=== PATIENT | female | born 1955 | race Caucasian/White ===

== ENCOUNTER → 2019-02-13 | Emergency (ER) | payer MEDICARE, MEDICAID, SELFPAY | PROVIDERS: Emergency Provider Emergency Medicine; Family Provider Family Medicine; Visit Provider Emergency Medicine | DX: I10 Essential (primary) hypertension (principal) | CPT/HCPCS: 71045; 80053; 84484; 85025; 85378; 99283 ==

== ENCOUNTER 2019-05-30 15:41 | Emergency (ER) | payer MEDICARE, MEDICAID, SELFPAY ==
[2019-05-30 15:51] VITALS: BP 194/114; PULSE 77; RESP 14; TEMP 36.4; O2SAT 98; BMI 38.9
[2019-05-30 16:11] VITALS: BP 178/92; PULSE 72; RESP 16; O2SAT 99
--- NOTE | 2019-05-30 16:20 | XR_ITS ---
WS: [id number] PORTABLE CHEST HISTORY: dyspnea COMPARISON: 02/13/2019 Lungs are clear and well expanded. No pleural effusion or pneumothorax. Cardiac size: Normal. Mediastinum/Aorta: Mild atherosclerosis aorta. Prior rotator cuff repair RIGHT shoulder. XR/XR chest 1V portable [id number] IMPRESSION: Mild atherosclerosis aorta. No acute findings.
--- NOTE | 2019-05-30 16:21 | ECG_ITS ---
Measurements Intervals [place] Rate: 72 P: 7 MD: 177 QRS: -8 QRSD: 89 T: -18 QT: 393 QTc: 432 SINUS RHYTHM Compared to ECG 02/14/2019 00:14:57 No significant changes Electronically Signed On 05-30-2019 19:15:59 CDT by Yolanda Mejia M.D. [id number] f
--- NOTE | 2019-05-30 16:24 | ED_ITS ---
Documented by User: Levon Paige DO 05/30/19 16:27 HPI - SOB/Dyspnea General: Chief Complaint: Shortness of Breath/Dyspnea Stated Complaint: sent by doctor mirian/ high blood pressure Time Seen by Provider: 05/30/19 16:13 History of Present Illness: HPI Narrative: Patient states that while she was reading very early this morning her blood pressure began to become elevated and also she had some chest heaviness with shortness of breath. The chest heaviness and shortness of breath have resolved her the patient's blood pressure remains elevated MD elicited complaint: shortness of breath Onset (ago): hour(s) Timing: improved and now resolved Severity: moderate Exacerbating factors: exertion Relieving factors: nothing Associated symptoms: Reports chest pain Treatment prior to arrival: none Review of Systems General: Reports: 10 or more systems reviewed and unremarkable except in HPI and below Const: Reports: fatigue Card: Reports: chest pain Resp: Reports: shortness of breath PFSH ED PFSH: Social History Smoking and tobacco status: never smoked Physical Exam Const: COMMON NORMALS: oriented x3 and alert HENMT: COMMON NORMALS: normocephalic and head/scalp atraumatic HEAD & SCALP: normocephalic and atraumatic Neck/C-Spine: COMMON NORMALS: full ROM, no lymphadenopathy, supple, no meningeal signs and no JVD Resp: COMMON NORMALS: normal respiratory effort, no retractions, no use of accessory muscles and clear to auscultation bilaterally AUSCULTATION: clear to auscultation bilaterally Cardio: COMMON NORMALS: no JVD, regular rate and regular rhythm JUGULAR VENOUS DISTENTION: no JVD RATE: regular rate RHYTHM: regular rhythm GI: COMMON NORMALS: normal to inspection, nondistended, normoactive bowel sounds Extremity: COMMON NORMALS: normal to inspection and no pedal edema Neuro: COMMON NORMALS: oriented x3, CN's II-XII intact bilaterally and moves all extremities SENSORIUM/ORIENTATION: Yes alert MENINGEAL SIGNS: Yes no meningeal signs Skin: COMMON NORMALS: no rashes or lesions noted, no wounds, skin turgor normal, no jaundice, no petechiae and no mottling GENERAL SKIN EXAM: no rashes or lesions noted and turgor normal Course Vital Signs: Vital signs: Vital Signs Temperature 97.6 F 05/30/19 15:51 Pulse Rate 72 05/30/19 16:11 Respiratory Rate 16 05/30/19 16:11 Blood Pressure 178/92 05/30/19 16:11 Pulse Oximetry 99 05/30/19 16:11 MDM - SOB/Dyspnea Lab Data: Labs: Lab Results 05/30/19 05/30/19 05/30/19 Range/Units 16:30 16:30 16:30 WBC 4.4 (4.0-10.0) 10^3/ uL RBC 4.63 (4.1-5.3) 10^6/u L Hgb 13.7 (11.5-15.3) g/dL Hct 43.0 (37.0-47.0) % MCV 92.9 (81-99) fL MCH 29.6 (28.0-34.0) pg MCHC 31.9 (30.0-36.0) g/dL RDW 13.1 (12.1-15.1) % Plt Count 172 (130-400) 10^3/c mm MPV 9.6 (7.4-10.4) fL Neut % (Auto) 59.9 % Lymph % (Auto) 31.0 % [place] % (Auto) 6.2 % Eos % (Auto) 1.8 % Baso % (Auto) 0.9 % Neut # (Auto) 2.6 (1.8-7.7) 10^3/u L Lymph # (Auto) 1.4 (0.8-4.8) 10^3/u L [place] # (Auto) 0.3 (0.2-0.9) 10^3/u L Eos # (Auto) 0.1 (0.0-0.8) 10^3/u L Baso # (Auto) 0.0 (0.0-0.1) 10^3/u L Nucleated RBC % (a uto) 0 % Nucleated RBCs # 0.0 /100WBC Sodium 140 (136-145) mmol/L Potassium 3.8 (3.5-5.1) mmol/L Chloride 103 (98-107) mmol/L Carbon Dioxide 22 (22-29) mmol/L Anion Gap 18.8 (5-19) BUN 12 (8-23) mg/dL Creatinine 0.8 (0.5-0.9) mg/dL GFR Calculation 72.7 L (90-130) mL/min Glucose 98 (65-115) mg/dL Calculated Osmolal ity 286 (285-295) mOsm/k g Calcium 10.1 (8.5-10.5) mg/dL Total Bilirubin 0.8 (0.15-1.2) mg/dL AST 16 (0-32) U/L ALT 12 (0-33) U/L Alkaline Phosphata se 65 (35-105) IU/L Troponin T Baselin e 8 (0-10) ng/mL Troponin T 120 Min [place] (0-10) ng/mL NT-Pro-B Natriuret Pep 639 H (0-125) pg/mL Total Protein 7.4 (6.6-8.7) g/dL Albumin 4.4 (3.5-5.2) g/dL Globulin 3.0 (1.3-4.6) g/dL Influenza Type A A g (Negative) Influenza Type B A g (Negative) 05/30/19 05/30/19 Range/Units 17:05 18:16 WBC (4.0-10.0) 10^3/ uL RBC (4.1-5.3) 10^6/u L Hgb (11.5-15.3) g/dL Hct (37.0-47.0) % MCV (81-99) fL MCH (28.0-34.0) pg MCHC (30.0-36.0) g/dL RDW (12.1-15.1) % Plt Count (130-400) 10^3/c mm MPV (7.4-10.4) fL Neut % (Auto) % Lymph % (Auto) % [place] % (Auto) % Eos % (Auto) % Baso % (Auto) % Neut # (Auto) (1.8-7.7) 10^3/u L Lymph # (Auto) (0.8-4.8) 10^3/u L [place] # (Auto) (0.2-0.9) 10^3/u L Eos # (Auto) (0.0-0.8) 10^3/u L Baso # (Auto) (0.0-0.1) 10^3/u L Nucleated RBC % (a uto) % Nucleated RBCs # /100WBC Sodium (136-145) mmol/L Potassium (3.5-5.1) mmol/L Chloride (98-107) mmol/L Carbon Dioxide (22-29) mmol/L Anion Gap (5-19) BUN (8-23) mg/dL Creatinine (0.5-0.9) mg/dL GFR Calculation (90-130) mL/min Glucose (65-115) mg/dL Calculated Osmolal ity (285-295) mOsm/k g Calcium (8.5-10.5) mg/dL Total Bilirubin (0.15-1.2) mg/dL AST (0-32) U/L ALT (0-33) U/L Alkaline Phosphata se (35-105) IU/L Troponin T Baselin e (0-10) ng/mL Troponin T 120 Min [place] 7.08 (0-10) ng/mL NT-Pro-B Natriuret Pep (0-125) pg/mL Total Protein (6.6-8.7) g/dL Albumin (3.5-5.2) g/dL Globulin (1.3-4.6) g/dL Influenza Type A A g Negative (Negative) Influenza Type B A g Negative (Negative) Discharge Plan Discharge Patient Disposition: Home, Self-Care Clinical Impression: Chest pain Qualifiers: Chest pain type: other chest pain Qualified Code(s): R07.89 - Other chest pain Hypertension Qualifiers: Hypertension type: essential hypertension Qualified Code(s): I10 - Essential (primary) hypertension Condition: Stable Prescriptions: No Action losartan 50 mg tablet 1 mg PO DAILY RF: 0 hydrocodone-acetaminophen 5-325 mg tablet See Rx Instructions .ROUTE .COMPLEX RF: 0 baclofen 20 mg tablet 20 mg PO DAILY RF: 0 Calcium 600 600 mg calcium (1,500 mg) Tablet 600 mg PO DAILY RF: 0 magnesium 250 mg Tablet 250 mg PO DAILY RF: 0 Probiotic 100 billion cell Capsule 1 cap PO DAILY RF: 0 Emergen-C 500 mg Tablet,Chewable 1 tab PO DAILY RF: 0 Discharge Orders: Discharge Order (Routine); Ordered 05/30/19 Ordered By: Lebron Krishnamurthy Referrals: Anthony Jacobs MD [Primary Care Provider] - 4-7 days Discharge Diet: Advance as tolerated Discharge Activity: Resume usual activity Patient Instructions: Chest Pain (ED), Hypertension (ED) Coding Level of Care Code ED Care Technician for Chg Fwd Exam Comprehensive Documented by User: Lebron Krishnamurthy MD 05/30/19 19:05 HPI - SOB/Dyspnea General: Chief Complaint: Shortness of Breath/Dyspnea Stated Complaint: sent by doctor mirian/ high blood pressure Time Seen by Provider: 05/30/19 16:13 [facility] ED PFSH: Social History Smoking and tobacco status: never smoked Course Vital Signs: Vital signs: Vital Signs Temperature 97.6 F 05/30/19 15:51 Pulse Rate 72 05/30/19 16:11 Respiratory Rate 16 05/30/19 16:11 Blood Pressure 178/92 05/30/19 16:11 Pulse Oximetry 99 05/30/19 16:11 MDM - SOB/Dyspnea MDM Narrative: Medical decision making narrative: Patient presents with high blood pressure that is since resolved after she took her home meds. Patient did have some chest pain that symptoms resolved as well. Her initial and repeat troponin and EKGs are normal. Patient feels improved and I had a long di scussion with her and feels she is stable for discharge. She is to follow-up with her primary care doctor in 1 week I informed her she needs to take a blood pressure log. She is return to the ER if anything worsens. Lab Data: Labs: Lab Results 05/30/19 05/30/19 05/30/19 Range/Units 16:30 16:30 16:30 WBC 4.4 (4.0-10.0) 10^3/ uL RBC 4.63 (4.1-5.3) 10^6/u L Hgb 13.7 (11.5-15.3) g/dL Hct 43.0 (37.0-47.0) % MCV 92.9 (81-99) fL MCH 29.6 (28.0-34.0) pg MCHC 31.9 (30.0-36.0) g/dL RDW 13.1 (12.1-15.1) % Plt Count 172 (130-400) 10^3/c mm MPV 9.6 (7.4-10.4) fL Neut % (Auto) 59.9 % Lymph % (Auto) 31.0 % [place] % (Auto) 6.2 % Eos % (Auto) 1.8 % Baso % (Auto) 0.9 % Neut # (Auto) 2.6 (1.8-7.7) 10^3/u L Lymph # (Auto) 1.4 (0.8-4.8) 10^3/u L [place] # (Auto) 0.3 (0.2-0.9) 10^3/u L Eos # (Auto) 0.1 (0.0-0.8) 10^3/u L Baso # (Auto) 0.0 (0.0-0.1) 10^3/u L Nucleated RBC % (a uto) 0 % Nucleated RBCs # 0.0 /100WBC Sodium 140 (136-145) mmol/L Potassium 3.8 (3.5-5.1) mmol/L Chloride 103 (98-107) mmol/L Carbon Dioxide 22 (22-29) mmol/L Anion Gap 18.8 (5-19) BUN 12 (8-23) mg/dL Creatinine 0.8 (0.5-0.9) mg/dL GFR Calculation 72.7 L (90-130) mL/min Glucose 98 (65-115) mg/dL Calculated Osmolal ity 286 (285-295) mOsm/k g Calcium 10.1 (8.5-10.5) mg/dL Total Bilirubin 0.8 (0.15-1.2) mg/dL AST 16 (0-32) U/L ALT 12 (0-33) U/L Alkaline Phosphata se 65 (35-105) IU/L Troponin T Baselin e 8 (0-10) ng/mL Troponin T 120 Min [place] (0-10) ng/mL NT-Pro-B Natriuret Pep 639 H (0-125) pg/mL Total Protein 7.4 (6.6-8.7) g/dL Albumin 4.4 (3.5-5.2) g/dL Globulin 3.0 (1.3-4.6) g/dL Influenza Type A A g (Negative) Influenza Type B A g (Negative) 05/30/19 05/30/19 Range/Units 17:05 18:16 WBC (4.0-10.0) 10^3/ uL RBC (4.1-5.3) 10^6/u L Hgb (11.5-15.3) g/dL Hct (37.0-47.0) % MCV (81-99) fL MCH (28.0-34.0) pg MCHC (30.0-36.0) g/dL RDW (12.1-15.1) % Plt Count (130-400) 10^3/c mm MPV (7.4-10.4) fL Neut % (Auto) % Lymph % (Auto) % [place] % (Auto) % Eos % (Auto) % Baso % (Auto) % Neut # (Auto) (1.8-7.7) 10^3/u L Lymph # (Auto) (0.8-4.8) 10^3/u L [place] # (Auto) (0.2-0.9) 10^3/u L Eos # (Auto) (0.0-0.8) 10^3/u L Baso # (Auto) (0.0-0.1) 10^3/u L Nucleated RBC % (a uto) % Nucleated RBCs # /100WBC Sodium (136-145) mmol/L Potassium (3.5-5.1) mmol/L Chloride (98-107) mmol/L Carbon Dioxide (22-29) mmol/L Anion Gap (5-19) BUN (8-23) mg/dL Creatinine (0.5-0.9) mg/dL GFR Calculation (90-130) mL/min Glucose (65-115) mg/dL Calculated Osmolal ity (285-295) mOsm/k g Calcium (8.5-10.5) mg/dL Total Bilirubin (0.15-1.2) mg/dL AST (0-32) U/L ALT (0-33) U/L Alkaline Phosphata se (35-105) IU/L Troponin T Baselin e (0-10) ng/mL Troponin T 120 Min [place] 7.08 (0-10) ng/mL NT-Pro-B Natriuret Pep (0-125) pg/mL Total Protein (6.6-8.7) g/dL Albumin (3.5-5.2) g/dL Globulin (1.3-4.6) g/dL Influenza Type A A g Negative (Negative) Influenza Type B A g Negative (Negative) Imaging Data^: CXR: Attestation: I personally reviewed and interpreted this imaging study as follows: My impression: no acute abnormality EKG Data^: EKG 1: Attestation: I personally reviewed and interpreted this EKG as follows: EKG Interpretation Date: 05/30/19 EKG interpretation time: 17:33 Interpretation: nsr hr [address] or t wave abnormalities qrs [id number] [id number] Discharge Plan Discharge Patient Disposition: Home, Self-Care Clinical Impression: Chest pain Qualifiers: Chest pain type: other chest pain Qualified Code(s): R07.89 - Other chest pain Hypertension Qualifiers: Hypertension type: essential hypertension Qualified Code(s): I10 - Essential (primary) hypertension Condition: Stable Prescriptions: No Action losartan 50 mg tablet 1 mg PO DAILY RF: 0 hydrocodone-acetaminophen 5-325 mg tablet See Rx Instructions .ROUTE .COMPLEX RF: 0 baclofen 20 mg tablet 20 mg PO DAILY RF: 0 Calcium 600 600 mg calcium (1,500 mg) Tablet 600 mg PO DAILY RF: 0 magnesium 250 mg Tablet 250 mg PO DAILY RF: 0 Probiotic 100 billion cell Capsule 1 cap PO DAILY RF: 0 Emergen-C 500 mg Tablet,Chewable 1 tab PO DAILY RF: 0 Discharge Orders: Discharge Order (Routine); Ordered 05/30/19 Ordered By: Lebron Krishnamurthy Referrals: Anthony Jacobs MD [Primary Care Provider] - 4-7 days Discharge Diet: Advance as tolerated Discharge Activity: Resume usual activity Patient Instructions: Chest Pain (ED), Hypertension (ED) Coding Level of Care Code ED Care Technician for Chg Fwd Exam Comprehensive
[2019-05-30 16:44] LABS: Basophils % 0.9 %; Eosinophils # 0.1 10^3/uL (0.0-0.8); Eosinophils % 1.8 %; Hemoglobin 13.7 g/dL (11.5-15.3); Lymphocytes # 1.4 10^3/uL (0.8-4.8); Mean Corpuscular HGB Conc 31.9 g/dL (30.0-36.0); Mean Corpuscular Hemoglobin 29.6 pg (28.0-34.0); Mean Corpuscular Volume 92.9 fL (81-99); Mean Platelet Volume 9.6 fL (7.4-10.4); Monocytes # 0.3 10^3/uL (0.2-0.9); Monocytes % 6.2 %; Neutrophils # 2.6 10^3/uL (1.8-7.7); Neutrophils % 59.9 %; Nucleated Red Blood Cells % 0 %; Platelet Count 172 10^3/cmm (130-400); Red Blood Count 4.63 10^6/uL (4.1-5.3); Red Cell Distribution Width 13.1 % (12.1-15.1); White Blood Count 4.4 10^3/uL (4.0-10.0)
[2019-05-30] MEDS: hyDRALAzine 20 mg/mL INJ 1 mL 10 MG IVP (16:59)
[2019-05-30 17:05] LABS: Troponin(5th) Baseline 8 ng/mL (0-10)
[2019-05-30 17:13] LABS: Alanine Aminotransferase 12 U/L (0-33); Albumin Level 4.4 g/dL (3.5-5.2); Alkaline Phosphatase 65 IU/L (35-105); Anion Gap 18.8 (5-19); Aspartate Amino Transferase 16 U/L (0-32); Blood Urea Nitrogen 12 mg/dL (8-23); Calcium 10.1 mg/dL (8.5-10.5); Carbon Dioxide 22 mmol/L (22-29); Chloride 103 mmol/L (98-107); Glomerular Filtration Rate 72.7 mL/min (90-130); Glucose 98 mg/dL (65-115); NT Pro B Type Natriuretic Pept 639 pg/mL (0-125); Osmolality Calculated 286 mOsm/kg (285-295); Potassium 3.8 mmol/L (3.5-5.1); Sodium 140 mmol/L (136-145); Total Bilirubin 0.8 mg/dL (0.15-1.2); Total Protein 7.4 g/dL (6.6-8.7)
[2019-05-30 18:31] LABS: Influenza A by IFA Negative (Negative)
[2019-05-30 18:38] LABS: Influenza B by IFA Negative (Negative)
[2019-05-30 18:55] LABS: Troponin 5 2HR 7.08 ng/mL (0-10)
[2019-05-30 19:00] VITALS: BP 131/89; PULSE 81; RESP 16; O2SAT 95
[2019-05-30 19:04] LABS: Troponin 5 2HR Delta -0.92 ABS# (0-10)
== END 2019-05-30 19:54 | disposition home or self-care (01) ==
PROVIDERS: Family Medicine; Emergency Provider Emergency Medicine; Family Provider Family Medicine; PCP Family Medicine
DX: R07.89 Other chest pain (principal); I10 Essential (primary) hypertension
CPT/HCPCS: 12345; 36415; 71045; 80053; 83880; 84484; 85025; 87040; 87804; 93005; 96374; 96375; 99283; 99284; J0360

== ENCOUNTER 2019-06-01 08:09 | Outpatient (CLI) | payer MEDICARE, MEDICAID, SELFPAY ==
--- NOTE | 2019-06-01 08:33 | CT_ITS ---
WS: [id number] CT CHEST ANGIOGRAPHY WITH REFORMATS HISTORY: ELEVATED D-DIMER TECHNIQUE: Contiguous axial images are obtained through the chest during arterial injection of intrav enous contrast. Images are reconstructed to evaluate the pulmonary arteries. MIP imaging also reviewe d. All CT scans at [facility] use at least one of these dose optimization techniques: aut omated exposure control; mA and/or kV adjustment per patient size (includes targeted exams where dose is matched to clinical indication); or iterative reconstruction. CONTRAST: Omnipaque 350; 95 mL IV. DLP: 534.1 mGy.cm COMPARISON: None available. Excellent opacification of the pulmonary arteries. No filling defects. Pulmonary artery measures 3.1 cm in diameter. Mild atherosclerosis aorta. No pericardial or pleural effusion. There is slight enlar gement of the LEFT heart chambers. There are a few scattered very subtle groundglass opacifications in the RIGHT lower lobe. No pneumoni a. No pulmonary nodule or mass. No mediastinal or hilar adenopathy. LEFT thyroid nodule measures 2.3 x 2.7 cm. Prior gastric bypass. Moderate increase in thoracic kyphosis with advanced degenerative changes in the disc spaces with end plate osteophytes. CT/CT angio chest PE protcl [id number] IMPRESSION: 1. No pulmonary embolism. 2. Mild LEFT heart enlargement. 3. No pneumonia. 4. Mild atherosclerosis aorta. 5. LEFT thyroid nodule measures 2.3 x 2.7 cm. Recommend follow-up ultrasound t hyroid.
[2019-06-01] MEDS: iohexol 350 mg/mL 100 mL Btl IV (09:03)
== END 2019-06-01 08:10 | disposition home or self-care (01) ==
PROVIDERS: Family Provider Family Medicine; PCP Family Medicine; Visit Provider Family Medicine
DX: R79.89 Other specified abnormal findings of blood chemistry (principal); I51.7 Cardiomegaly; I70.0 Atherosclerosis of aorta; E04.1 Nontoxic single thyroid nodule
CPT/HCPCS: 71275

== ENCOUNTER 2019-09-04 06:00 | Outpatient (RCR) | payer MEDICARE, MEDICAID, SELFPAY | END 2019-09-15 23:59 | disposition home or self-care (01) | LOC: SPT 06:00 | PROVIDERS: Family Provider Family Medicine; PCP Family Medicine; Referring Provider Ophthalmology; Visit Provider Ophthalmology | DX: Z47.89 Encounter for other orthopedic aftercare (principal); Z96.651 Presence of right artificial knee joint | CPT/HCPCS: 97110; 97161 ==

== ENCOUNTER 2019-09-16 06:00 | Outpatient (RCR) | payer MEDICARE, MEDICAID, SELFPAY | END 2019-10-16 23:59 | disposition home or self-care (01) | LOC: SPT 06:00 | PROVIDERS: PCP Family Medicine; Referring Provider Ophthalmology; Visit Provider Ophthalmology | DX: Z96.651 Presence of right artificial knee joint (principal) | CPT/HCPCS: 97110 ==

== ENCOUNTER 2019-11-15 10:50 | Emergency (ER) | payer MEDICARE, MEDICAID, SELFPAY ==
[2019-11-15 11:01] VITALS: BP 202/95; PULSE 88; RESP 18; TEMP 36.5; O2SAT 97; BMI 38.9
[2019-11-15 11:11] VITALS: BP 170/108; PULSE 84; RESP 16; O2SAT 96
--- NOTE | 2019-11-15 11:13 | XRR_ITS ---
PROCEDURE INFORMATION: Exam: XR Chest, 1 View Exam date and time: 11/15/2019 11:41 AM Age: 64 years old Clinical indication: Cough and dyspnea; Additional info: Dyspnea/cough TECHNIQUE: Imaging protocol: XR of the chest Views: 1 view. COMPARISON: CR XR chest 1V portable [id number] 05/30/2019 4:32 PM FINDINGS: Lungs: Unremarkable. No consolidation. Pleural space: Unremarkable. No pleural effusion. No pneumothorax. Heart/Mediastinum: Unremarkable. No cardiomegaly. Bones/joints: Unremarkable. XR/XR chest 1V portable [id number] IMPRESSION: No acute findings.
--- NOTE | 2019-11-15 11:13 | ECG_ITS ---
[facility] Test Date: 2019-11-15 Pat Name: Xiao Kinsey Department: Room: Gender: Female Child Care: : 1955 Requested By: Antelmo Saunders Order Number: [id number] [place] MD: Anselmo Stewart M.D. Measurements Intervals [place] Rate: 74 P: 13 GA: 155 QRS: 57 QRSD: 85 T: -18 QT: 369 QTc: 412 Interpretive Statements SINUS RHYTHM ABNORMAL QRS-T ANGLE [QRS-T AXIS DIFFERENCE > 60] Compared to ECG 05/30/2019 17:33:12 No significant changes Electronically Signed On 11-15-2019 18:36:21 CDT by Anselmo Stewart M.D. [id number]
[2019-11-15] MEDS: amlodipine 5 mg Tablet 2.5 MG PO (11:21)
--- NOTE | 2019-11-15 11:21 | ED_ITS ---
HPI - General Adult General: Chief complaint: General Medical Stated complaint: HTN Time Seen by Provider: 11/15/19 11:05 History of Present Illness: HPI narrative: 64-year-old female presents emergency room with complaint of elevated blood pressure. She denies any headache visual disturbances difficulty speaking or swallowing. She is not had any recent change in medication she has been taking all of her medications. A few weeks ago she increased the number of baclofen she takes per day but she did not notice any difficulty when she made that change. She is the only blood pressure medicine she is on is losartan. Onset (ago): hour(s) Relieving factors: none Exacerbating factors: none Associated symptoms: Deny chest pain, confusion, cough, diaphoresis, decreased appetite, dyspnea, fevers/chills, headache(s), malaise, nausea, rash, palpitations, seizures, short of breath, syncope, vomiting or weakness Treatments prior to arrival: none Review of Systems Const: Denies: malaise or diaphoresis ENMT: Denies: throat pain, ear or mastoid pain, nasal discharge or nasal congestion Card: Denies: chest pain, palpitations or syncope Resp: Denies: dyspnea GI: Denies: nausea or vomiting : Denies: flank pain, difficulty voiding, dysuria, urinary frequency or urinary urgency Skin/Breast: Denies: rash Neuro: Denies: headache(s) or confusion PFS ED PFSH: Medical History (Updated 11/15/19 @ 12:49 by Antelmo Rios DO) Hypertension Social History Smoking and tobacco status: never smoked Physical Exam Const: COMMON NORMALS: no acute distress GENERAL APPEARANCE: cooperative and comfortable ORIENTATION/CONSCIOUSNESS: Yes awake, Yes oriented to person, Yes oriented to place and Yes oriented to time HENMT: COMMON NORMALS: normocephalic, atraumatic and hearing grossly normal bilaterally HEAD & SCALP: normocephalic and atraumatic Eye: COMMON NORMALS: Equal, round and reactive pupils present, EOMs intact bilaterally, conjunctivae normal and no scleral icterus CONJUNCTIVA: Yes conjunctivae normal PUPIL: Yes Equal, round and reactive pupils present Neck/C-Spine: COMMON NORMALS: no JVD Resp: COMMON NORMALS: normal respiratory effort, No retractions, No use of accessory muscles and clear to auscultation bilaterally AUSCULTATION: clear to auscultation bilaterally Cardio: COMMON NORMALS: no JVD, regular rate, regular rhythm and No murmurs present (Cardio) RATE: regular rate RHYTHM: regular rhythm GI: COMMON NORMALS: Soft to palpation and No hepatosplenomegaly present AUSCULTATION: Yes normoactive bowel sounds PALPATION: Yes Soft to palpation, No Tenderness to palpation present (GI), No Guarding due to palpation present (GI) and Yes No hepatosplenomegaly present Extremity: COMMON NORMALS: normal to inspection, capillary refill normal, no clubbing, cyanosis or edema, no calf tenderness and no pedal edema Neuro: SENSORIUM/ORIENTATION: Yes oriented to person, Yes oriented to place and Yes oriented to time Skin: COMMON NORMALS: no rashes or lesions noted GENERAL SKIN EXAM: no rashes or lesions noted Course Vital Signs: Vital signs: Vital Signs Temperature 97.7 F 11/15/19 11:01 Pulse Rate 71 11/15/19 13:08 Respiratory Rate 19 H 11/15/19 13:08 Blood Pressure 160/108 11/15/19 13:08 Pulse Oximetry 98 11/15/19 13:08 MDM - General Adult MDM Narrative: Medical decision making narrative: She is feeling somewhat better. We will go ahead and discharge her home add amlodipine to my 5 mg p.o. daily follow-up with primary care doctor in the next week. Or sooner. If she has any recurrence of problems she is return to the emergency room immediately. Lab Data: Labs: Lab Results 11/15/19 11/15/19 11/15/19 Range/Units 11:21 11:21 11:30 WBC 4.9 (4.0-10.0) 10^3/ uL RBC 4.87 (4.1-5.3) 10^6/u L Hgb 13.5 (11.5-15.3) g/dL Hct 43.4 (37.0-47.0) % MCV 89.1 (81-99) fL MCH 27.7 L (28.0-34.0) pg MCHC 31.1 (30.0-36.0) g/dL RDW 12.7 (12.1-15.1) % Plt Count 167 (130-400) 10^3/c mm MPV 9.6 (7.4-10.4) fL Neut % (Auto) 78.5 % Lymph % (Auto) 15.2 % [place] % (Auto) 4.3 % Eos % (Auto) 0.8 % Baso % (Auto) 0.6 % Neut # (Auto) 3.81 (1.8-7.7) 10^3/u L Lymph # (Auto) 0.7 L (0.8-4.8) 10^3/u L [place] # (Auto) 0.2 (0.2-0.9) 10^3/u L Eos # (Auto) 0.0 (0.0-0.8) 10^3/u L Baso # (Auto) 0.0 (0.0-0.1) 10^3/u L Nucleated RBC % (a uto) 0 % Nucleated RBCs # 0.0 /100WBC Sodium 142 (136-145) mmol/L Potassium 4.0 (3.5-5.1) mmol/L Chloride 108 H (98-107) mmol/L Carbon Dioxide 24 (22-29) mmol/L Anion Gap 14.0 (5-19) BUN 14 (8-23) mg/dL Creatinine 0.8 (0.5-0.9) mg/dL GFR Calculation 72.7 L (90-130) mL/min Glucose 122 H (65-115) mg/dL Calculated Osmolal ity 296 H (285-295) mOsm/k g Calcium 9.8 (8.5-10.5) mg/dL Magnesium 1.9 (1.7-2.3) mg/dL Urine Color Yellow (Yellow) Urine Appearance Clear (CLEAR) Urine pH 6.5 (5-7) Ur Specific Gravit y 1.010 (1.005-1.030) Urine Protein Neg (Negative) Urine Glucose (UA) Norm (Normal) Urine Ketones Negative (Negative) Urine Blood Neg (Negative) Urine Nitrate Negative (Negative) Urine Bilirubin Neg (Negative) Urine Urobilinogen Norm (Negative) mg/dL Ur Leukocyte Kendra ase Negative (Negative) Discharge Plan Discharge Patient Disposition: Home Clinical Impression: Hypertension Condition: Stable Prescriptions: New amlodipine 2.5 mg tablet 2.5 mg PO DAILY Qty: 30 RF: 0 No Action losartan 50 mg tablet 1 mg PO DAILY RF: 0 hydrocodone-acetaminophen 5-325 mg tablet See Rx Instructions .ROUTE .COMPLEX RF: 0 baclofen 20 mg tablet 20 mg PO DAILY RF: 0 Calcium 600 600 mg calcium (1,500 mg) Tablet 600 mg PO DAILY RF: 0 magnesium 250 mg Tablet 250 mg PO DAILY RF: 0 Probiotic 100 billion cell Capsule 1 cap PO DAILY RF: 0 Emergen-C 500 mg Tablet,Chewable 1 tab PO DAILY RF: 0 Discharge Orders: Discharge Order (Routine); Ordered 11/15/19 Ordered By: Antelmo Rios Referrals: Anthony Jacobs MD [Primary Care Provider] - Discharge Activity: Increase activity as tolerated Activity Restrictions/Additional Instructions: Follow-up with your primary care doctor to reevaluate your blood pressure in the next 5 to 7 days. Return to the emergency room if you have any problems. Discharge Date/Time: 11/15/19 13:10 Coding Level of Care Code ED Marketing Budget Analyst for [place] Fwd Exam Comprehensive
[2019-11-15 11:36] LABS: Basophils % 0.6 %; Eosinophils % 0.8 %; Hematocrit 43.4 % (37.0-47.0); Hemoglobin 13.5 g/dL (11.5-15.3); Lymphocytes # 0.7 10^3/uL (0.8-4.8); Lymphocytes % 15.2 %; Mean Corpuscular HGB Conc 31.1 g/dL (30.0-36.0); Mean Corpuscular Hemoglobin 27.7 pg (28.0-34.0); Mean Corpuscular Volume 89.1 fL (81-99); Mean Platelet Volume 9.6 fL (7.4-10.4); Monocytes # 0.2 10^3/uL (0.2-0.9); Monocytes % 4.3 %; Neutrophils # 3.81 10^3/uL (1.8-7.7); Neutrophils % 78.5 %; Nucleated Red Blood Cells % 0 %; Platelet Count 167 10^3/cmm (130-400); Red Blood Count 4.87 10^6/uL (4.1-5.3); Red Cell Distribution Width 12.7 % (12.1-15.1); White Blood Count 4.9 10^3/uL (4.0-10.0)
[2019-11-15 11:44] LABS: Add Urine Microscopic? NO; Bilirubin Urine Neg (Negative); Blood Urine Neg (Negative); Glucose Urine UA Norm (Normal); Ketones Urine Negative (Negative); Leukocyte Esterase Urine Negative (Negative); Nitrate Urine Negative (Negative); Protein Urine Neg (Negative); Urine Appearance Clear (CLEAR); Urine Color Yellow (Yellow); Urobilinogen Urine Norm (Negative); pH Urine 6.5 (5-7)
[2019-11-15 11:50] LABS: Blood Urea Nitrogen 14 mg/dL (8-23); Calcium 9.8 mg/dL (8.5-10.5); Carbon Dioxide 24 mmol/L (22-29); Chloride 108 mmol/L (98-107); Glomerular Filtration Rate 72.7 mL/min (90-130); Glucose 122 mg/dL (65-115); Magnesium 1.9 mg/dL (1.7-2.3); Osmolality Calculated 296 mOsm/kg (285-295); Sodium 142 mmol/L (136-145)
[2019-11-15 12:18] VITALS: BP 158/99; PULSE 71; RESP 19; O2SAT 95
[2019-11-15 13:08] VITALS: BP 160/108; PULSE 71; RESP 19; O2SAT 98
== END 2019-11-15 13:10 | disposition home or self-care (01) ==
PROVIDERS: Emergency Provider Family Medicine; PCP Family Medicine
DX: I10 Essential (primary) hypertension (principal)
CPT/HCPCS: 12345; 36415; 71045; 80048; 81003; 83735; 85025; 93005; 99282; 99283

== ENCOUNTER 2019-11-16 06:00 | Outpatient (RCR) | payer MEDICARE, MEDICAID, SELFPAY | END 2019-12-14 23:00 | disposition home or self-care (01) | LOC: SPT 06:00 | PROVIDERS: PCP Family Medicine; Referring Provider Student in an Organized Health Care Education/Training Program; Visit Provider Student in an Organized Health Care Education/Training Program | DX: Z47.1 Aftercare following joint replacement surgery (principal); Z96.659 Presence of unspecified artificial knee joint | CPT/HCPCS: 97110 ==

== ENCOUNTER 2020-02-01 15:11 | Outpatient (CLI) | payer MEDICARE, MEDICAID, SELFPAY ==
--- NOTE | 2020-02-01 15:18 | MM_ITS ---
WS: [id number] SCREENING DIGITAL MAMMOGRAM WITH CAD HISTORY: SCREENING COMPARISON: 01/25/2018 and 12/16/2015 Bilateral CC and MLO views submitted. Computer aided detection analyzed. Breast composition: There are scattered areas of fibroglandular density. No suspicious masses, microc alcifications or architectural distortion. Benign calcifications in each breast. MM/[place] [id number] IMPRESSION: BI-RADS: 2-Benign FOLLOW UP: 1 Year Follow-up
--- NOTE | 2020-02-01 15:54 | XR_ITS ---
WS: [id number] Bone mineral density performed on a Telderi IDXA, 02/01/2020 Clinical data: POST MENOPAUSAL COMPARISON STUDY: DEXA scan, 01/25/2018. Findings: The first 4 lumbar vertebral bodies demonstrated the bone mineral density of 1.130 g/cm2 for a young adult T score of -0.4. Measurement of the left hip reveals a bone mineral density of 0.751 g/cm2 with a young adult T score of -2.0. Measurement of the right hip reveals the bone mineral density of 0.711 g/cm2 for young adult T score of -2.4. XR/XR DEXA axial skeleton* [id number] Impression: 1. The bone mineral density of the lumbar spine is normal and there has been im provement in the bone mineral density compared to the prior exam. 2. The bone mineral density of the hips shows osteopenia and the bone mineral d ensity has diminished compared to the prior study.
== END 2020-02-01 15:12 | disposition home or self-care (01) ==
LOC: RADSHAW 15:16
PROVIDERS: PCP Family Medicine; Visit Provider Family Medicine
DX: Z12.31 Encounter for screening mammogram for malignant neoplasm of breast (principal); Z78.0 Asymptomatic menopausal state; M85.88 Other specified disorders of bone density and structure, other site
CPT/HCPCS: 77067; 77080

== ENCOUNTER 2021-02-10 05:50 | Emergency (ER) | payer MEDICARE, MEDICAID, SELFPAY ==
[2021-02-10 05:53] VITALS: BP 164/88; PULSE 82; RESP 18; O2SAT 95; BMI 38.3
--- NOTE | 2021-02-10 06:11 | XRR_ITS ---
PROCEDURE INFORMATION: Exam: XR Chest Exam date and time: 02/10/2021 6:11 AM Age: 66 years old Clinical indication: Patient HX: Coughing SOB this am; Additional info: Cough TECHNIQUE: Imaging protocol: XR of the chest. Views: 1 view. Total images: 1 COMPARISON: CR XR chest 1V portable [id number] 11/15/2019 11:31 AM FINDINGS: Lungs: Unremarkable. No consolidation. Pleural spaces: Unremarkable. No pleural effusion. No pneumothorax. Heart/Mediastinum: Heart size is stable when compared to the prior exam. Vasculature: Atherosclerosis is evident. Bones/joints: Osseous structures are unchanged from the prior exam. XR/XR chest 1V portable [id number] IMPRESSION: No acute cardiopulmonary process.
--- NOTE | 2021-02-10 06:13 | W.ED.COVID ---
HPI - COVID General: Chief Complaint: Shortness of Breath/Dyspnea Stated Complaint: COUGH/SOB Time Seen by Provider: 02/10/21 05:57 Triage information: Has fever, cough or shortness of breath. No known COVID + exposure last 14 days History of Present Illness: HPI Narrative: 66 a female presents emergency room with complaints of cough and myalgias with some diarrhea. Cough is been nonproductive. Began 2 days ago progressively worsening. No known history of chronic respiratory illness patient is nondiabetic mild hypertension. Patient has been immunized for Covid but is not previously tested positive MD complaint: has COVID symptoms Prior covid testing: no COVID 19 common symptoms: positive fever(s), chills, cough, non-productive cough, dyspnea, body aches, headache(s), throat pain, nasal congestion and diarrhea; negative productive cough COVID 19 other sytmptoms: negative chest pain or requiring oxygen Onset (ago): day(s) (2) Severity: mild Pertinent comorbid conditions: hypertension and obesity Treatment prior to arrival: none COVID Results: No Data to Display Review of Systems Const: Reports: fever(s), chills and body aches ENMT: Reports: throat pain and nasal congestion Card: Denies: chest pain, edema, dyspnea on exertion or orthopnea Resp: Reports: dyspnea and non-productive cough; Denies: productive cough GI: Reports: diarrhea : Denies: flank pain, difficulty voiding, dysuria, urinary frequency or urinary urgency Skin/Breast: Denies: rash or pruritus Neuro: Reports: headache(s) PFS ED PFSH: Medical History Hypertension Obesity Surgical History Hx of gastric bypass Gastric sleeve 2014 Hx of hysterectomy Total knee replacement status Family History Other CAD (coronary artery disease) Cancer Diabetes Stroke Social History Smoking and tobacco status: never smoked Alcohol intake: current Alcohol intake frequency: other Physical Exam Const: COMMON NORMALS: no acute distress GENERAL APPEARANCE: cooperative and comfortable ORIENTATION/CONSCIOUSNESS: Yes awake, Yes oriented to person, Yes oriented to place and Yes oriented to time HENMT: COMMON NORMALS: normocephalic, atraumatic and hearing grossly normal bilaterally HEAD & SCALP: normocephalic and atraumatic Neck/C-Spine: COMMON NORMALS: no JVD Resp: COMMON NORMALS: normal respiratory effort, No retractions, No use of accessory muscles and clear to auscultation bilaterally AUSCULTATION: clear to auscultation bilaterally Cardio: COMMON NORMALS: no JVD, regular rate, regular rhythm and No murmurs present (Cardio) RATE: regular rate RHYTHM: regular rhythm GI: COMMON NORMALS: Soft to palpation and No hepatosplenomegaly present AUSCULTATION: Yes normoactive bowel sounds PALPATION: Yes Soft to palpation, No Tenderness to palpation present (GI), No Guarding due to palpation present (GI) and Yes No hepatosplenomegaly present Extremity: COMMON NORMALS: normal to inspection, capillary refill normal, no clubbing, cyanosis or edema, no calf tenderness and no pedal edema Neuro: SENSORIUM/ORIENTATION: Yes oriented to person, Yes oriented to place and Yes oriented to time Skin: COMMON NORMALS: no rashes or lesions noted GENERAL SKIN EXAM: no rashes or lesions noted Course Vital Signs: Vital signs: Vital Signs Pulse Rate 80 02/10/21 06:43 Respiratory Rate 17 02/10/21 06:43 Blood Pressure 137/70 02/10/21 06:43 Pulse Oximetry 94 02/10/21 06:43 MDM - COVID MDM Narrative: Medical decision making narrative: Clinically patient is stable. Do strongly suspect she has COVID based on presenting symptoms and lymphocytosis. Covid PCR is pending. Discussed monoclonal antibodies the patient she is inclined to have them if she is positive. We did do a home O2 eval which was negative. Will discharge patient home supportive cares recommend maintain self quarantine until results are back. Return if she has further problems. Lab Data: Labs: Lab Results 02/10/21 02/10/21 06:25 06:25 WBC 4.0 10^3/uL 10^3/ uL (4.0-10.0) RBC 4.67 10^6/uL 10^6 /uL (4.1-5.3) Hgb 12.8 g/dL g/dL (11.5-15.3) Hct 40.0 % % (37.0-47.0) MCV 85.7 fl fl (81-99) MCH 27.4 pg L pg (28.0-34.0) MCHC 32.0 g/dL g/dL (30.0-36.0) RDW 13.5 % % (12.1-15.1) Plt Count 168 10^3/cmm 10^3 /cmm (130-400) MPV 9.5 fL fL (7.4-10.4) Neut % (Auto) 68.8 % % Lymph % (Auto) 16.5 % % Burt % (Auto) 10.9 % % Eos % (Auto) 2.5 % % Baso % (Auto) 0.8 % % Neut # (Auto) 2.72 10^3/uL 10^3 /uL (1.8-7.7) Lymph # (Auto) 0.7 10^3/uL L 10^ 3/uL (0.8-4.8) Burt # (Auto) 0.4 10^3/uL 10^3/ uL (0.2-0.9) Eos # (Auto) 0.1 10^3/uL 10^3/ uL (0.0-0.8) Baso # (Auto) 0.0 10^3/uL 10^3/ uL (0.0-0.1) Nucleated RBC % (a uto) 0 % % Nucleated RBCs # 0.0 /100WBC /100W BC Sodium 144 mmol/L mmol/L (136-145) Potassium 4.1 mmol/L mmol/L (3.5-5.1) Chloride 109 mmol/L H mmol /L (98-107) Carbon Dioxide 22 mmol/L mmol/L (22-29) Anion Gap 17.1 (5-19) BUN 10 mg/dL mg/dL (8-23) Creatinine 0.7 mg/dL mg/dL (0.5-0.9) GFR Calculation 84.2 mL/min L mL/ min (90-130) Glucose 101 mg/dL mg/dL (65-115) Calculated Osmolal ity 297 mOsm/kg H mOs m/kg (285-295) Calcium 8.6 mg/dL mg/dL (8.5-10.5) Total Bilirubin 0.5 mg/dL mg/dL (0.15-1.2) AST 13 U/L U/L (0-32) ALT 12 U/L U/L (0-33) Alkaline Phosphata se 76 IU/L IU/L (35-105) Total Protein 7.0 g/dL g/dL (6.6-8.7) Albumin 4.0 g/dL g/dL (3.5-5.2) Globulin 3.0 g/dL g/dL (1.3-4.6) COVID Results: No Data to Display Discharge Plan Discharge Patient Disposition: Home Clinical Impression: Suspected 2019-nCoV infection Condition: Stable Prescriptions: No Action omeprazole 20 mg tablet,delayed release (DR/EC) 20 mg PO DAILY RF: 0 turmeric 400 mg capsule PO RF: 0 hydrocodone-acetaminophen 5-325 mg tablet See Rx Instructions .ROUTE .COMPLEX RF: 0 baclofen 20 mg tablet 20 mg PO DAILY RF: 0 magnesium 250 mg Tablet 250 mg PO DAILY RF: 0 Probiotic 100 billion cell Capsule 1 cap PO DAILY RF: 0 Emergen-C 500 mg Tablet,Chewable 1 tab PO DAILY RF: 0 losartan 50 mg tablet 50 mg PO DAILY RF: 0 Discharge Orders: Discharge ED (Routine); Ordered 02/10/21 Ordered By: Antelmo Rios Referrals: Anthony Jacobs MD [Primary Care Provider] - Discharge Diet: Usual diet Discharge Activity: Increase activity as tolerated Patient Instructions: Opioid Safety Activity Restrictions/Additional Instructions: Test for COVID-19. Recommend he maintain self quarantine until the results are back. If you do test positive you would be a candidate for monoclonal antibodies. Coding Level of Care Code ED Insurance Account Assistant for Marquita Fwd Exam Comprehensive
[2021-02-10 06:32] VITALS: O2SAT 96
[2021-02-10 06:43] VITALS: BP 137/70; PULSE 80; RESP 17; O2SAT 94
[2021-02-10 06:50] LABS: Basophils % 0.8 %; Eosinophils # 0.1 10^3/uL (0.0-0.8); Eosinophils % 2.5 %; Hemoglobin 12.8 g/dL (11.5-15.3); Lymphocytes # 0.7 10^3/uL (0.8-4.8); Lymphocytes % 16.5 %; Mean Corpuscular Hemoglobin 27.4 pg (28.0-34.0); Mean Corpuscular Volume 85.7 fl (81-99); Mean Platelet Volume 9.5 fL (7.4-10.4); Monocytes # 0.4 10^3/uL (0.2-0.9); Monocytes % 10.9 %; Neutrophils # 2.72 10^3/uL (1.8-7.7); Neutrophils % 68.8 %; Nucleated Red Blood Cells % 0 %; Platelet Count 168 10^3/cmm (130-400); Red Blood Count 4.67 10^6/uL (4.1-5.3); Red Cell Distribution Width 13.5 % (12.1-15.1)
[2021-02-10 07:07] LABS: Alanine Aminotransferase 12 U/L (0-33); Alkaline Phosphatase 76 IU/L (35-105); Anion Gap 17.1 (5-19); Aspartate Amino Transferase 13 U/L (0-32); Blood Urea Nitrogen 10 mg/dL (8-23); Calcium 8.6 mg/dL (8.5-10.5); Carbon Dioxide 22 mmol/L (22-29); Chloride 109 mmol/L (98-107); Glomerular Filtration Rate 84.2 mL/min (90-130); Glucose 101 mg/dL (65-115); Osmolality Calculated 297 mOsm/kg (285-295); Potassium 4.1 mmol/L (3.5-5.1); Sodium 144 mmol/L (136-145); Total Bilirubin 0.5 mg/dL (0.15-1.2)
[2021-02-10 07:52] VITALS: PULSE 74; RESP 18; O2SAT 94
[2021-02-10 08:48] LABS: Adenovirus Not Detected (NOT DETECT); Chlamydia Pneumoniae Not Detected (NOT DETECT); Coronavirus 229E,HKU1,NL63,OC4 Not Detected (NOT DETECT); Human Metapneumovirus Detected (NOT DETECT); Human Rhinovirus/Enterovirus Not Detected (NOT DETECT); Influenza A Not Detected (NOT DETECT); Influenza A H1 Not Detected (NOT DETECT); Influenza A H1-2009 Not Detected (NOT DETECT); Influenza A H3 Not Detected (NOT DETECT); Influenza B Not Detected (NOT DETECT); Mycoplasma Pneumoniae Not Detected (NOT DETECT); Parainfluenza Virus Type 1 Not Detected (NOT DETECT); Parainfluenza Virus Type 2 Not Detected (NOT DETECT); Parainfluenza Virus Type 3 Not Detected (NOT DETECT); Parainfluenza Virus Type 4 Not Detected (NOT DETECT); Respiratory Syncytial Virus A Not Detected (NOT DETECT); Respiratory Syncytial Virus B Not Detected (NOT DETECT); SARS-COV-2 Not Detected (NOT DETECT)
[2021-02-10 08:55] LABS: Human Metapneumovirus Detected (NOT DETECT); Human Rhinovirus/Enterovirus Not Detected (NOT DETECT); Results from GT
== END 2021-02-10 07:50 | disposition home or self-care (01) ==
PROVIDERS: Emergency Provider Family Medicine; PCP Family Medicine
DX: Z20.822 Contact with and (suspected) exposure to COVID-19 (principal); I10 Essential (primary) hypertension
CPT/HCPCS: 71045; 80053; 85025; 87635; 87801; 99283

== ENCOUNTER → 2021-07-22 07:59 | Outpatient (BNVA) | payer MEDICARE, MEDICAID, SELFPAY | PROVIDERS: PCP Family Medicine; Referring Provider Registered Nurse Neonatal Intensive Care; Visit Provider Podiatrist Foot & Ankle Surgery | DX: M79.672 Pain in left foot (principal); M76.822 Posterior tibial tendinitis, left leg; M21.612 Bunion of left foot; M21.622 Bunionette of left foot; M21.42 Flat foot [pes planus] (acquired), left foot | CPT/HCPCS: 73630; 99203; 99204 ==

== ENCOUNTER 2021-07-25 06:00 | Outpatient (RCR) | payer MEDICARE, MEDICAID, SELFPAY | END 2021-08-14 23:59 | disposition home or self-care (01) | LOC: SPT 06:00 | PROVIDERS: PCP Family Medicine; Referring Provider Student in an Organized Health Care Education/Training Program; Visit Provider Student in an Organized Health Care Education/Training Program | DX: M25.561 Pain in right knee (principal) | CPT/HCPCS: 97161 ==

== ENCOUNTER 2021-07-29 23:59 | Emergency (ER) | payer MEDICARE, MEDICAID, SELFPAY ==
[2021-07-30] VITALS (11 sets, daily range): BP systolic 142–187; BP diastolic 82–109; PULSE 97–105; RESP 18–20; TEMP 36.8; O2SAT 95–98; BMI 39.1
--- NOTE | 2021-07-30 00:11 | ED_ITS ---
HPI - Abdominal Pain General: Chief Complaint: Abdominal Pain Stated Complaint: abd pain Time Seen by Provider: 07/30/21 00:03 History of Present Illness: Ms. Kinsey is a 66-year-old lady with significant past medical history of hypertension and prior gastric sleeve approximately 5 years ago who presents to the emergency department due to abdominal pain. Symptom onset was approximately 14 hours ago and subacute without known provoking factor. Since that time she has had bilateral lower abdominal pain associated with loose stools. She has nausea but no vomiting though she does not typically vomit after gastric sleeve. She denies urinary symptoms or symptoms. Intensity symptoms is moderate to severe. She has not had improvement with bowel movements. Denies similar episodes in the past. No other specific changes in health, exacerbating, or alleviating factors judith ntified. Pertinent past history: other (History of gastric sleeve) Onset (ago): hour(s) Pain Consistency: constant Severity: moderate Quality: cramping and fullness Exacerbating factors: movement Relieving factors: nothing Associated Symptoms: Reports nausea and other (Loose stools) Review of Systems General: Reports: 10 or more systems reviewed and unremarkable except in HPI and below GI: Reports: nausea and other (Loose stools) PFSH ED PFSH: Medical History Hypertension Obesity Surgical History Hx of gastric bypass Gastric sleeve 2014 Hx of hysterectomy Total knee replacement status Family History Other CAD (coronary artery disease) Cancer Diabetes Stroke Social History Smoking and tobacco status: never smoked Alcohol intake: current Alcohol intake frequency: other Physical Exam Const: COMMON NORMALS: alert GENERAL APPEARANCE: cooperative, well developed and in distress (Uncomfortable appearing due to pain) HENMT: COMMON NORMALS: normocephalic and atraumatic HEAD & SCALP: normocephalic and atraumatic Eye: COMMON NORMALS: conjunctivae normal CONJUNCTIVA: Yes conjunctivae normal SCLERA: sclerae normal Neck/C-Spine: COMMON NORMALS: supple GENERAL: Yes trachea midline Resp: COMMON NORMALS: normal respiratory effort and clear to auscultation bilaterally EFFORT & INSPECTION: Yes able to speak in complete sentences AUSCULTATION: clear to auscultation bilaterally Cardio: COMMON NORMALS: regular rate and regular rhythm RATE: regular rate RHYTHM: regular rhythm GI: COMMON NORMALS: Soft to palpation PALPATION: Yes Soft to palpation, Yes Tenderness to palpation present (GI) Details: LLQ and RLQ, Yes Guarding due to palpation present (GI) (Tender to percussion) and No Rigid due to palpation PERCUSSION: normal to percussion Extremity: GENERAL: Yes normal exam except as noted and No edema Neuro: COMMON NORMALS: moves all extremities SENSORIUM/ORIENTATION: Yes alert and No Orientation impaired Psych: COMMON NORMALS: mental status grossly normal and Normal thought process present THOUGHT PROCESS: Normal thought process present Course ED course: - Patient was seen and evaluated by me at bedside - Patient placed on cardiac monitors, IV access obtained - Initial evaluation notable for exam as above. - Labs personally interpreted by me - Symptom treatment ordered - Labs notable for no leukocytosis, normal hemoglobin. Metabolic panel without electrolyte derangement. Urinalysis not concerning for urinary tract infection. - Imaging notable for simple diverticulitis - Upon serial reexamination after treatment the patient was improved - Based on patient history, evaluation, and testing as interpreted the most likely cause of the patient's condition is diverticulitis. She tolerated p.o. intake and tolerated antibiotics. - The results of ED evaluation were discussed with the patient including prescriptions and/or symptomatic cares (if applicable) including appropriate and responsible use, followup plan, and return precautions. The patient verbalized understanding and felt safe for discharge. - Patient discharged in satisfactory condition. Note: Click bubbles or prepopulated carroll in note writing are used for assistance with data collection and billing and are inherently more limited than narrative and other text portions of this note. Please use narrative for additional clinical history and defer to narrative/free test for any case of contradictory information. If information appears in only free text or click bubble it should be considered present or absent as reported. Please contact note parts data writer for clarifications of clinical information or contradictory information. MDM is a brief summary, contradictory or erroneous seeming information should be clarified and full note should be reviewed. Vital Signs: Vital signs: Vital Signs Temperature 98.2 F 07/30/21 05:01 Pulse Rate 97 07/30/21 05:01 Respiratory Rate 18 07/30/21 05:01 Blood Pressure 142/82 07/30/21 05:01 Pulse Oximetry 96 07/30/21 05:01 MDM - Abdominal Pain Medical Decision Making 66-year-old lady presenting with abdominal pain found to have simple sigmoid diverticulitis. Nontoxic in appearance and able to tolerate p.o. intake. Plan to trial outpatient treatment with strict return precautions. Medical Records I reviewed the patient's medical records. Lab Data I reviewed the patient's lab results. : 07/30/21 01:05 07/30/21 01:05 Labs/Radiology: Radiology Impressions Abdomen/Pelvis CT 07/30/21 00:53 IMPRESSION: Acute, uncomplicated sigmoid diverticulitis. COMMENTS: Consistent with the [employer]'s Incidental Findings Committee white paper (J Am Sabino Radiol 2018): Any incidental renal lesion less than 1 cm or classified as too small to characterize, or any incidental cystic renal lesion characterized as simple-appearing, is likely benign. No follow-up imaging is recommended for these lesions per consensus recommendations based on imaging criteria. Laboratory Results WBC 9.0 10^3/uL (4.0-10.0) 07/30/21 01:05 RBC 4.61 10^6/uL (4.1-5.3) 07/30/21 01:05 Hgb 12.2 g/dL (11.5-15.3) 07/30/21 01:05 Hct 37.9 % (37.0-47.0) 07/30/21 01:05 MCV 82.2 fl (81-99) 07/30/21 01:05 MCH 26.5 pg (28.0-34.0) L 07/30/21 01:05 MCHC 32.2 g/dL (30.0-36.0) 07/30/21 01:05 RDW 13.7 % (12.1-15.1) 07/30/21 01:05 Plt Count 207 10^3/cmm (130-400) 07/30/21 01:05 MPV 9.8 fL (7.4-10.4) 07/30/21 01:05 Neut % (Auto) 80.1 % 07/30/21 01:05 Lymph % (Auto) 10.2 % 07/30/21 01:05 Harlan % (Auto) 7.8 % 07/30/21 01:05 Eos % (Auto) 0.9 % 07/30/21 01:05 Baso % (Auto) 0.7 % 07/30/21 01:05 Neut # (Auto) 7.19 10^3/uL (1.8-7.7) 07/30/21 01:05 Lymph # (Auto) 0.9 10^3/uL (0.8-4.8) 07/30/21 01:05 Harlan # (Auto) 0.7 10^3/uL (0.2-0.9) 07/30/21 01:05 Eos # (Auto) 0.1 10^3/uL (0.0-0.8) 07/30/21 01:05 Baso # (Auto) 0.1 10^3/uL (0.0-0.1) 07/30/21 01:05 Nucleated RBC % (auto) 0 % 07/30/21 01:05 Nucleated RBCs # 0.0 /100WBC 07/30/21 01:05 Sodium 139 mmol/L (136-145) 07/30/21 01:05 Potassium 4.2 mmol/L (3.5-5.1) 07/30/21 01:05 Chloride 105 mmol/L (98-107) 07/30/21 01:05 Carbon Dioxide 23 mmol/L (22-29) 07/30/21 01:05 Anion Gap 15.2 (5-19) 07/30/21 01:05 BUN 11 mg/dL (8-23) 07/30/21 01:05 Creatinine 0.7 mg/dL (0.5-0.9) 07/30/21 01:05 GFR Calculation 84.2 mL/min (90-130) L 07/30/21 01:05 Glucose 111 mg/dL (65-115) 07/30/21 01:05 Calculated Osmolality 288 mOsm/kg (285-295) 07/30/21 01:05 Calcium 9.4 mg/dL (8.5-10.5) 07/30/21 01:05 Total Bilirubin 0.6 mg/dL (0.15-1.2) 07/30/21 01:05 AST 12 U/L (0-32) 07/30/21 01:05 ALT 12 U/L (0-33) 07/30/21 01:05 Alkaline Phosphatase 98 IU/L (35-105) 07/30/21 01:05 Total Protein 7.4 g/dL (6.6-8.7) 07/30/21 01:05 Albumin 4.2 g/dL (3.5-5.2) 07/30/21 01:05 Globulin 3.2 g/dL (1.3-4.6) 07/30/21 01:05 Lipase 46 U/L (13-60) 07/30/21 01:05 Urine Color Colorless (Yellow) 07/30/21 01:05 Urine Appearance Clear (CLEAR) 07/30/21 01:05 Urine pH 8 (5-7) H 07/30/21 01:05 Ur Specific Keymar 1.015 (1.005-1.030) 07/30/21 01:05 Urine Protein Neg (Negative) 07/30/21 01:05 Urine Glucose (UA) Norm (Normal) 07/30/21 01:05 Urine Ketones Negative (Negative) 07/30/21 01:05 Urine Blood Neg (Negative) 07/30/21 01:05 Urine Nitrate Negative (Negative) 07/30/21 01:05 Urine Bilirubin Neg (Negative) 07/30/21 01:05 Prot Sulfosalicylic Acd Negative (Negative) 07/30/21 01:05 Urine Urobilinogen Norm mg/dL (Negative) 07/30/21 01:05 Ur Leukocyte Esterase Negative (Negative) 07/30/21 01:05 Discharge Plan Discharge Patient Disposition: Home Clinical Impression: Diverticulitis Condition: Stable Prescriptions: New metronidazole 500 mg tablet 500 mg PO Q8H 5 Days Qty: 15 0RF Cipro 500 mg tablet 500 mg PO BID 5 Days Qty: 10 0RF ondansetron 4 mg tablet,disintegrating 4 mg PO Q8H PRN (Reason: nausea and vomiting) Qty: 15 0RF oxycodone 5 mg tablet 5 mg PO Q4H PRN (Reason: pain) Qty: 10 0RF dicyclomine 10 mg capsule 10 mg PO BID PRN (Reason: abdominal pain) Qty: 7 0RF No Action omeprazole 20 mg tablet,delayed release (DR/EC) 20 mg PO DAILY 0RF turmeric 400 mg capsule PO 0RF B12 Active 1,000 mcg tablet,chewable 1,000 mcg PO DAILY 0RF methocarbamol 500 mg tablet 500 mg PO TID 0RF hydrocodone-acetaminophen 5-325 mg tablet See Rx Instructions .ROUTE .COMPLEX 0RF Rx Instructions: 1 tab orally take 1 tab po tid prn , hold within 4 hour of planned sleep magnesium 250 mg Tablet 250 mg PO DAILY 0RF Probiotic 100 billion cell Capsule 1 cap PO DAILY 0RF Emergen-C 500 mg Tablet,Chewable 1 tab PO DAILY 0RF losartan 50 mg tablet 50 mg PO DAILY 0RF Discharge Orders: Discharge ED (Routine); Ordered 07/30/21 Ordered By: Walter Stephens Referrals: Anthony Jacobs MD [Primary Care Provider] - Discharge Diet: Advance as tolerated and Clear Liquid Discharge Activity: Increase activity as tolerated Patient Instructions: Diverticulitis (ED), Diverticulitis Diet (ED), Opioid Safety Activity Restrictions/Additional Instructions: Thank you for visiting the emergency department. You were seen and evaluated for abdominal pain. You are found to have diverticulitis. This will be treated with antibiotics. Additionally I will prescribe antinausea and pain medication. I would expect improvement in the next few days. Please follow-up with your primary care provider. Please return to the emergency department for worsening symptoms, uncontrolled pain despite treatment, inability tolerate oral intake, or anything else that you are concerned about and feel needs emergency department evaluation. Coding Level of Care Code ED Day Care Aide for Marquita Streeter Exam Comprehensive
--- NOTE | 2021-07-30 00:53 | CTR_ITS ---
PROCEDURE INFORMATION: Exam: CT Abdomen And Pelvis Without Contrast Exam date and time: 07/30/2021 1:37 AM Age: 66 years old Clinical indication: Abdominal pain; Generalized; Prior surgery; Surgery type: Gastric sleeve. Hysterectomy. Patient HX: C/O diffuse abd pain with loose stools. ; Additional info: Bilateral lower abd pain, loose stools TECHNIQUE: Imaging protocol: Computed tomography of the abdomen and pelvis without contrast. Radiation optimization: All CT scans at this facility use at least one of these dose optimization techniques: automated exposure control; mA and/or kV adjustment per patient size (includes targeted exams where dose is matched to clinical indication); or iterative reconstruction. COMPARISON: CT abdomen pelvis w con* [id number] 02/18/2018 12:31 AM RADIATION DOSE METRICS: Total DLP (mGy-cm): 1662.85 FINDINGS: Lungs: The lung bases are clear. No effusion Liver: Normal. No mass. Gallbladder and bile ducts: There has been a cholecystectomy. Pancreas: Normal. No ductal dilation. Spleen: Normal. No splenomegaly. Adrenal glands: Normal. No mass. Kidneys and ureters: 1.8 cm left renal cyst. Stomach and bowel: Gastric sleeve procedure has been performed. There are multiple sigmoid diverticuli. There is perisigmoid fat stranding. No fluid collection or perforation. Appendix: No evidence of appendicitis. Intraperitoneal space: Unremarkable. No free air. No significant fluid collection. Vasculature: There is mild atherosclerotic disease. Lymph nodes: Unremarkable. No enlarged lymph nodes. Urinary bladder: Unremarkable as visualized. Reproductive: There has been a hysterectomy. Bones/joints: Unremarkable. No acute fracture. Soft tissues: Unremarkable. CT/CT abdomen pelvis wo con [id number] IMPRESSION: Acute, uncomplicated sigmoid diverticulitis. COMMENTS: Consistent with the [employer]'s Incidental Findings Committee white paper (J Am Sabino Radiol 2018): Any incidental renal lesion less than 1 cm or classified as too small to characterize, or any incidental cystic renal lesion characterized as simple-appearing, is likely benign. No follow-up imaging is recommended for these lesions per consensus recommendations based on imaging criteria.
[2021-07-30] MEDS: fentaNYL 50 mcg/mL INJ 2mL IVP ×2 (00:58→03:18)
[2021-07-30 01:13] LABS: Add Urine Microscopic? NO; Charge for UA Resulting for Rev
[2021-07-30 01:18] LABS: Urine Appearance Clear (CLEAR); Urine Color Colorless (Yellow)
[2021-07-30 01:19] LABS: Bilirubin Urine Neg (Negative); Blood Urine Neg (Negative); Glucose Urine UA Norm (Normal); Ketones Urine Negative (Negative); Leukocyte Esterase Urine Negative (Negative); Nitrate Urine Negative (Negative); Protein Urine Neg (Negative); Specific Gravity, Urine 1.015 (1.005-1.030); Sulfosalicylic Acid Urine Negative (Negative); Urobilinogen Urine Norm (Negative); pH Urine 8 (5-7)
[2021-07-30 01:25] LABS: Basophils # 0.1 10^3/uL (0.0-0.1); Basophils % 0.7 %; Eosinophils # 0.1 10^3/uL (0.0-0.8); Eosinophils % 0.9 %; Hematocrit 37.9 % (37.0-47.0); Hemoglobin 12.2 g/dL (11.5-15.3); Lymphocytes # 0.9 10^3/uL (0.8-4.8); Lymphocytes % 10.2 %; Mean Corpuscular HGB Conc 32.2 g/dL (30.0-36.0); Mean Corpuscular Hemoglobin 26.5 pg (28.0-34.0); Mean Corpuscular Volume 82.2 fl (81-99); Mean Platelet Volume 9.8 fL (7.4-10.4); Monocytes # 0.7 10^3/uL (0.2-0.9); Monocytes % 7.8 %; Neutrophils # 7.19 10^3/uL (1.8-7.7); Neutrophils % 80.1 %; Nucleated Red Blood Cells % 0 %; Platelet Count 207 10^3/cmm (130-400); Red Blood Count 4.61 10^6/uL (4.1-5.3); Red Cell Distribution Width 13.7 % (12.1-15.1)
[2021-07-30 01:29] LABS: Alanine Aminotransferase 12 U/L (0-33); Albumin Level 4.2 g/dL (3.5-5.2); Alkaline Phosphatase 98 IU/L (35-105); Anion Gap 15.2 (5-19); Aspartate Amino Transferase 12 U/L (0-32); Blood Urea Nitrogen 11 mg/dL (8-23); Calcium 9.4 mg/dL (8.5-10.5); Carbon Dioxide 23 mmol/L (22-29); Chloride 105 mmol/L (98-107); Globulin 3.2 g/dL (1.3-4.6); Glomerular Filtration Rate 84.2 mL/min (90-130); Glucose 111 mg/dL (65-115); Lipase 46 U/L (13-60); Osmolality Calculated 288 mOsm/kg (285-295); Potassium 4.2 mmol/L (3.5-5.1); Sodium 139 mmol/L (136-145); Total Bilirubin 0.6 mg/dL (0.15-1.2); Total Protein 7.4 g/dL (6.6-8.7)
[2021-07-30] MEDS: ondansetron 2 mg/ML SDV 2 mL 4 MG IVP (04:20)
== END 2021-07-30 05:03 | disposition home or self-care (01) ==
PROVIDERS: Physician Assistant; Emergency Provider Emergency Medicine; PCP Family Medicine
DX: K57.32 Diverticulitis of large intestine without perforation or abscess without bleeding (principal); R11.0 Nausea; Z98.84 Bariatric surgery status
CPT/HCPCS: 74176; 80053; 81003; 83690; 85025; 96374; 96375; 99284; J2405; J3010

== ENCOUNTER → 2021-08-27 08:17 | Outpatient (BNVA) | payer MEDICARE, MEDICAID, SELFPAY | PROVIDERS: PCP Family Medicine; Visit Provider Podiatrist Foot & Ankle Surgery | DX: M76.822 Posterior tibial tendinitis, left leg (principal) | CPT/HCPCS: 99213; 99214 ==

== ENCOUNTER → 2021-10-29 08:17 | Outpatient (BNVA) | payer MEDICARE, MEDICAID, SELFPAY | PROVIDERS: PCP Family Medicine; Visit Provider Podiatrist Foot & Ankle Surgery | DX: M76.822 Posterior tibial tendinitis, left leg (principal) | CPT/HCPCS: 99213; 99214 ==

== ENCOUNTER → 2021-11-04 10:49 | Outpatient (BNVA) | payer MEDICARE, MEDICAID, SELFPAY | PROVIDERS: PCP Family Medicine; Visit Provider Internal Medicine Cardiovascular Disease | DX: R00.2 Palpitations (principal); I49.3 Ventricular premature depolarization; I10 Essential (primary) hypertension | CPT/HCPCS: 99214 ==

== ENCOUNTER → 2021-11-10 09:06 | Outpatient (BNVA) | payer MEDICARE, MEDICAID, SELFPAY | PROVIDERS: PCP Family Medicine; Visit Provider Podiatrist Foot & Ankle Surgery | DX: M76.822 Posterior tibial tendinitis, left leg (principal); M21.42 Flat foot [pes planus] (acquired), left foot; M21.611 Bunion of right foot; M21.612 Bunion of left foot; M21.621 Bunionette of right foot; M21.622 Bunionette of left foot | CPT/HCPCS: 99214 ==

== ENCOUNTER 2021-12-16 15:42 | Outpatient (CLI) | payer MEDICARE, MEDICAID, SELFPAY ==
--- NOTE | 2021-12-16 16:00 | MR_ITS ---
WS: [id number] MRI LEFT FOOT without CONTRAST. COMPARISON: Radiographs 07/22/2021 Multiplanar, multisequence imaging is performed without contrast. Mild flattening of the normal arch of the foot. Small amount of edema within the calcaneal spur. No t hickening of the plantar fascia. The distal Achilles tendon as visualized is normal. Mild hallux valgus deformity. There are several small erosions in the first metatarsal head and juxta -articular. No acute fractures. There is a very small amount of marrow edema in the lateral talus. There is mild diffuse narrowing of the tarsometatarsal articulations. No significant amount of increased fluid in the extensor or flexor tendon sheaths. MR/MR foot LT wo con* [id number] IMPRESSION: 1. Mild hallux valgus deformity. 2. Juxta-articular erosions first metatarsal head. Correlate with gout. 3. Flattening of the normal arch of the foot with narrowing of the tarsal ariel culations. 4. No acute fractures. Small amount of reactive marrow edema in the lateral ta be. 5. No acute plantar fasciitis. Small calcaneal spur.
== END 2021-12-16 15:43 | disposition home or self-care (01) ==
PROVIDERS: PCP Family Medicine; Visit Provider Podiatrist Foot & Ankle Surgery
DX: M76.822 Posterior tibial tendinitis, left leg (principal); M20.32 Hallux varus (acquired), left foot; M77.32 Calcaneal spur, left foot
CPT/HCPCS: 73718

== ENCOUNTER → 2021-12-31 11:28 | Outpatient (BNVA) | payer MEDICARE, MEDICAID, SELFPAY | PROVIDERS: PCP Family Medicine; Visit Provider Podiatrist Foot & Ankle Surgery | DX: M21.612 Bunion of left foot (principal); M21.622 Bunionette of left foot; M21.621 Bunionette of right foot; M21.611 Bunion of right foot; M76.822 Posterior tibial tendinitis, left leg; M21.42 Flat foot [pes planus] (acquired), left foot | CPT/HCPCS: 99214 ==

== ENCOUNTER 2022-01-15 06:00 | Outpatient (RCR) | payer MEDICARE, MEDICAID, SELFPAY | END 2022-02-14 23:59 | disposition home or self-care (01) | LOC: SPT 06:00 | PROVIDERS: PCP Family Medicine; Visit Provider Podiatrist Foot & Ankle Surgery | DX: M76.829 Posterior tibial tendinitis, unspecified leg (principal); M25.572 Pain in left ankle and joints of left foot | CPT/HCPCS: 97110; 97161; 97530 ==

== ENCOUNTER 2022-02-13 09:11 | Outpatient (CLI) | payer MEDICARE, MEDICAID, SELFPAY ==
--- NOTE | 2022-02-13 09:15 | MM_ITS ---
WS: [id number] Bilateral screening 3D tomosynthesis digital mammogram, 02/13/2022 Clinical Data: SCREENING Comparison: 02/01/2020, 01/25/2018, 12/16/2015, 06/21/2014, 01/25/2013. Findings: The breast parenchymal pattern shows fibroglandular tissue. No spiculated masses or clustered calcifi cations are seen. There are no secondary signs of carcinoma. There are mole markers on both breasts. There are lymph nodes in both axilla. MM/[place] [id number] Impression: 1. Negative bilateral mammogram unchanged. 2. Recommend annual screening mammograms. BIRADS: 1-Negative FOLLOW UP: 1 Year Follow-up The CAD cashier or checker stock clerk was used.
--- NOTE | 2022-02-13 09:40 | XR_ITS ---
WS: [id number] SCREENING DEXA SCAN [facility] CLINICAL INFORMATION: POSTMENOPAUSAL COMPARISON: 2019 FINDINGS: The L1-L4 bone mineral density measures 1.05. This corresponds to a T score score of -1.2 and Z score of -0.8. Left femoral neck bone mineral density measures 0.747 g/cm2. This corresponds to a T score of -2.1 an d Z score of -1.7. Right femoral neck bone mineral density measures 0.693 g/cm2. This corresponds to a T score -2.5of an d Z score of -2.1. Mean femoral neck bone mineral density measures 0.720 g/cm2. This corresponds to a T score of -2.3 an d Z score of -1.9. XR/XR DEXA axial skeleton* [id number] IMPRESSION: Osteopenia lumbar spine. Osteopenia femoral necks at the upper end of the range approaching osteoporosis. Patient's FRAX calculated 10 year probability for major osteoporotic fracture i s 12.8 % and osteoporotic hip fracture is 3.2%. Since 2020, bone mineral density in the lumbar spine has decreased -6.3% and al so decreased -1.5% in the femoral necks.
== END 2022-02-13 09:12 | disposition home or self-care (01) ==
PROVIDERS: PCP Family Medicine; Visit Provider Family Medicine
DX: Z12.31 Encounter for screening mammogram for malignant neoplasm of breast (principal); Z78.0 Asymptomatic menopausal state; M85.88 Other specified disorders of bone density and structure, other site
CPT/HCPCS: 77063; 77067; 77080

== ENCOUNTER 2022-02-15 06:00 | Outpatient (RCR) | payer MEDICARE, MEDICAID, SELFPAY | END 2022-03-17 23:59 | disposition home or self-care (01) | LOC: SPT 06:00 | PROVIDERS: PCP Family Medicine; Visit Provider Podiatrist Foot & Ankle Surgery | DX: M76.829 Posterior tibial tendinitis, unspecified leg (principal) | CPT/HCPCS: 97110; 97530 ==

== ENCOUNTER → 2022-02-25 08:48 | Outpatient (BNVA) | payer MEDICARE, MEDICAID, SELFPAY | PROVIDERS: PCP Family Medicine; Visit Provider Podiatrist Foot & Ankle Surgery | DX: M76.822 Posterior tibial tendinitis, left leg (principal); M21.612 Bunion of left foot; M21.611 Bunion of right foot; M21.621 Bunionette of right foot; M21.622 Bunionette of left foot; M21.42 Flat foot [pes planus] (acquired), left foot | CPT/HCPCS: 99213 ==

== ENCOUNTER 2022-03-18 06:00 | Outpatient (RCR) | payer MEDICARE, MEDICAID, SELFPAY | END 2022-04-14 23:59 | disposition home or self-care (01) | LOC: SPT 06:00 | PROVIDERS: PCP Family Medicine; Visit Provider Podiatrist Foot & Ankle Surgery | DX: M76.829 Posterior tibial tendinitis, unspecified leg (principal) | CPT/HCPCS: 97035; 97110; 97530 ==

== ENCOUNTER → 2022-04-08 08:15 | Outpatient (BNVA) | payer MEDICARE, MEDICAID, SELFPAY | PROVIDERS: PCP Family Medicine; Visit Provider Podiatrist Foot & Ankle Surgery | DX: M76.822 Posterior tibial tendinitis, left leg (principal); M21.42 Flat foot [pes planus] (acquired), left foot; M21.612 Bunion of left foot; M21.611 Bunion of right foot; M21.622 Bunionette of left foot; M21.621 Bunionette of right foot | CPT/HCPCS: 99213 ==

== ENCOUNTER 2022-04-27 17:25 | Emergency (ER) | payer MEDICARE, MEDICAID, SELFPAY ==
[2022-04-27 17:58] VITALS: BP 195/104; PULSE 90; RESP 18; TEMP 36.3; O2SAT 98
--- NOTE | 2022-04-27 19:14 | W.ED.EXTPRO ---
HPI - Extremity Problem General: Chief complaint: Extremity Problem,Nontraumatic Stated complaint: Leg leg and knee pain Time Seen by Provider: 04/27/22 19:10 History of Present Illness: 67-year-old female comes in today for concerns of a itchy lesion to the right lateral knee. Patient appears nontoxic. Patient reports symptoms for the last week. Patient states that it is very uncomfortable for the itchiness. Patient reports a history of a brown recluse bite on the other leg. Patient has had a history of knee replacements, obesity, palpitations, and hypertension. Associated symptoms: Deny chest pain or fever(s) Review of Systems General: Reports: 10 or more systems reviewed and unremarkable except in HPI and below Const: Denies: fever(s) Card: Denies: chest pain Resp: Denies: dyspnea GI: Denies: vomiting Musc: Denies: extremity pain Skin/Breast: Reports: new lesions (New itchy lesion) PFSH ED PFSH: Medical History Hypertension Obesity Surgical History Hx of gastric bypass Gastric sleeve 2015 Hx of hysterectomy Total knee replacement status Family History Other CAD (coronary artery disease) Cancer Diabetes Stroke Social History Smoking and tobacco status: never smoked Alcohol intake: current Alcohol intake frequency: other Physical Exam Const: COMMON NORMALS: alert HENMT: COMMON NORMALS: normocephalic HEAD & SCALP: normocephalic Neck/C-Spine: COMMON NORMALS: full ROM Resp: COMMON NORMALS: normal respiratory effort and clear to auscultation bilaterally AUSCULTATION: clear to auscultation bilaterally Cardio: COMMON NORMALS: regular rate and regular rhythm RATE: regular rate RHYTHM: regular rhythm Back/Pelvis: COMMON NORMALS: thoracic and lumbar spine normal to inspection Extremity: RIGHT LOWER EXTREMITY: Yes knee joint (Small papular lesion with surrounding flaky dry skin) Right knee: Yes inspection, Yes palpation and Yes ROM Neuro: SENSORIUM/ORIENTATION: Yes alert Skin: LESIONS: lesion noted (EarsRight lateral knee with surrounding dry skin 2cm) Course Vital Signs: Vital signs: Vital Signs Temperature 97.4 F L 04/27/22 17:58 Pulse Rate 88 04/27/22 19:24 Respiratory Rate 16 04/27/22 19:24 Blood Pressure 195/104 04/27/22 17:58 Pulse Oximetry 99 04/27/22 19:24 Oxygen Delivery Me thod 04/27/22 17:58 MDM - Extremity (Nontraumatic) Medical Decision Making 67-year-old female comes in today for concerns of an itchy area of skin to the right lateral knee. On exam patient has a small papular lesion with surrounding dry flaky skin. Differential diagnosis includes but not limited to atypical nevi, epidermal cyst, local reaction insect bite. Patient was put on some triamcinolone cream to help with the itching and dry skin. Patient was recommended to follow-up with primary care for repeat evaluation and biopsy. Patient reported understanding agreed to plan. Discharge Plan Discharge Patient Disposition: Home Clinical Impression: Atypical nevi Condition: Stable Prescriptions: New triamcinolone acetonide 0.1 % cream 1 applic topical BID Qty: 15 0RF No Action omeprazole 20 mg tablet,delayed release (DR/EC) 20 mg PO DAILY turmeric 400 mg capsule PO B12 Active 1,000 mcg tablet,chewable 1,000 mcg PO DAILY (DME) Spectrum AFO to the right See Rx Instructions .Route .MEDSUPPLY Qty: 1 0RF Rx Instructions: As directed by HEIDI&0 magnesium 250 mg Tablet 250 mg PO DAILY Probiotic 100 billion cell Capsule 1 cap PO DAILY Emergen-C 500 mg Tablet,Chewable 1 tab PO DAILY losartan 50 mg tablet 50 mg PO DAILY Discharge Orders: Discharge ED (Routine); Ordered 04/27/22 Ordered By: Rober Lynn Referrals: Anthony Jacobs MD [Primary Care Provider] - Discharge Diet: Usual diet Discharge Activity: Increase activity as tolerated Patient Instructions: Pain Management Activity Restrictions/Additional Instructions: Use cream twice a day to the area for itching and rash. Follow-up with primary care for further evaluation and treatment. Lesion needs to be biopsied for further evaluation. You may use Benadryl cream for further control of itching. Return to ER for worsening symptoms such as persistent nausea vomiting, increased redness and swelling to the extremity, fever greater than 100.4. 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
[2022-04-27 19:24] VITALS: PULSE 88; RESP 16; O2SAT 99
== END 2022-04-27 19:27 | disposition home or self-care (01) ==
PROVIDERS: Emergency Provider Nurse Practitioner Family; PCP Family Medicine
DX: D22.71 Melanocytic nevi of right lower limb, including hip (principal); I10 Essential (primary) hypertension; E66.9 Obesity, unspecified; Z68.41 Body mass index [BMI] 40.0-44.9, adult; Z96.653 Presence of artificial knee joint, bilateral
CPT/HCPCS: 99283

== ENCOUNTER 2022-05-13 23:35 | Observation (INO) | payer MEDICARE, MEDICAID, SELFPAY ==
[2022-05-13 23:35] VITALS: BP 196/117; PULSE 158; RESP 17; TEMP 36.5; O2SAT 97; BMI 41.2
[2022-05-13 23:44] VITALS: BP 151/105; PULSE 160; RESP 22; O2SAT 96
--- NOTE | 2022-05-13 23:46 | XRR_ITS ---
PROCEDURE INFORMATION: Exam: XR Chest Exam date and time: 05/13/2022 11:52 PM Age: 67 years old Clinical indication: Other: Palpitations TECHNIQUE: Imaging protocol: Radiologic exam of the chest. Views: 1 view. COMPARISON: CR XR chest 1V portable [id number] 02/10/2021 6:43 AM FINDINGS: Lungs: No CHF/pulmonary edema. Poor inspiration somewhat limits evaluation, especially of the lung bases. Visible lungs appear essentially clear. Pleural spaces: No visible pneumothorax. No definite pleural fluid. Heart/Mediastinum: Heart size appears upper range of normal. Bones/joints: No significant acute finding. XR/XR chest 1V portable [id number] IMPRESSION: 1. No definite CHF or pneumonia. 2. Other findings discussed above.
--- NOTE | 2022-05-13 23:48 | ECG_ITS ---
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 Measurements Intervals [place] Rate: 155 P: 0 [place]: 0 QRS: 9 QRSD: 77 T: -2 QT: 253 QTc: 407 Interpretive Statements ATRIAL FIBRILLATION WITH RAPID VENTRICULAR RESPONSE MINIMAL ST DEPRESSION [0.025+ mV ST DEPRESSION] CRITICAL TEST RESULT Compared to ECG 11/15/2019 11:44:25 ST (T wave) deviation now present Sinus rhythm no longer present Strong collateral about gluteal level about Karsh Electronically Signed On 05-13-2022 23:56:57 CDT by Yvette Hernandez M.D. [email or web address] hospital[facility].TimeCast/store/NU/[id number] f
--- NOTE | 2022-05-13 23:55 | ED_ITS ---
HPI - Arrhythmia/Palpitations General: Chief Complaint: Arrhythmia/Palpitations Stated Complaint: AFIB Time Seen by Provider: 05/13/22 23:45 Source: patient and EMS Mode of arrival: EMS Limitations: no limitations History of Present Illness: 67-year-old female states that roughly a few hours ago she started having some palpitations felt like her heart was racing she checked her pulse and it was 160s she had some mild discomfort in her chest denies any pain currently she is in A-fib with RVR here with heart rate in the 150s and 160s she has no history of A-fib in the past she denies any shortness o f breath she denies any worsening proving factors. Associated symptoms: Deny nausea or vomiting Review of Systems Const: Denies: fever(s), chills, body aches or change in appetite Eyes: Denies: blurry vision or eye discomfort ENMT: Denies: throat pain or dental pain Card: Reports: palpitations Resp: Denies: dyspnea GI: Denies: abdominal pain, nausea, vomiting or diarrhea : Denies: dysuria Musc: Denies: neck pain or back pain Skin/Breast: Denies: rash Neuro: Denies: headache(s) Psych: Denies: depression Edwin/Lymph: Denies: easy bruising All/Imm: Denies: urticaria PFSH ED PFSH: Medical History Hypertension Obesity Surgical History Hx of gastric bypass Gastric sleeve 2014 Hx of hysterectomy Total knee replacement status Family History Other CAD (coronary artery disease) Cancer Diabetes Stroke Social History Smoking and tobacco status: never smoked Alcohol intake: current Alcohol intake frequency: other Physical Exam Const: COMMON NORMALS: no acute distress, patient oriented x3 and healthy appearing HENMT: COMMON NORMALS: normocephalic and atraumatic HEAD & SCALP: normocephalic and atraumatic Eye: COMMON NORMALS: Equal, round and reactive pupils present and EOMs intact bilaterally PUPIL: Yes Equal, round and reactive pupils present Neck/C-Spine: COMMON NORMALS: full ROM and supple Chest: COMMONS NORMALS: normal inspection of the chest and normal palpation of entire chest wall Resp: COMMON NORMALS: normal respiratory effort, No retractions, No use of accessory muscles and clear to auscultation bilaterally AUSCULTATION: clear to auscultation bilaterally Cardio: COMMON NORMALS: regular rate, regular rhythm and No murmurs present (Cardio) RATE: regular rate and tachycardic RHYTHM: regular rhythm and abnormal rhythm irregularly irregular GI: COMMON NORMALS: Normal to inspection, nondistended, normoactive bowel sounds present, Soft to palpation, non-tender and no masses PALPATION: Yes Soft to palpation Extremity: COMMON NORMALS: normal to inspection and full ROM Neuro: COMMON NORMALS: patient oriented x3, moves all extremities and no focal motor deficits Psych: COMMON NORMALS: mental status grossly normal, Normal thought process present and cooperative THOUGHT PROCESS: Normal thought process present Skin: COMMON NORMALS: no rashes or lesions noted and no wounds GENERAL SKIN EXAM: no rashes or lesions noted Course Vital Signs: Vital signs: Vital Signs Temperature 97.7 F 05/13/22 23:35 Pulse Rate 103 H 05/14/22 00:30 Respiratory Rate 22 H 05/14/22 00:30 Blood Pressure 127/92 05/14/22 00:30 Pulse Oximetry 94 05/14/22 00:30 Oxygen Delivery Me thod 05/14/22 00:30 MDM - Arrhythmia/Palpitations Medical Decision Making Patient presents here with A-fib with RVR heart rate here is improved after Cardizem blood works normal I spoke to the hospitalist will admit at this time. Lab Data 05/13/22 23:53 05/13/22 23:53 Radiology Impressions Chest X-Ray 05/13/22 23:46 IMPRESSION: 1. No definite CHF or pneumonia. 2. Other findings discussed above. Laboratory Results WBC 11.5 10^3/uL (4.0-10.0) H 05/13/22 23:53 RBC 4.88 10^6/uL (4.1-5.3) 05/13/22 23:53 Hgb 12.0 g/dL (11.5-15.3) 05/13/22 23:53 Hct 39.9 % (37.0-47.0) 05/13/22 23:53 MCV 81.8 fl (81-99) 05/13/22 23:53 MCH 24.6 pg (28.0-34.0) L 05/13/22 23:53 MCHC 30.1 g/dL (30.0-36.0) 05/13/22 23:53 RDW 15.2 % (12.1-15.1) H 05/13/22 23:53 Plt Count 283 10^3/cmm (130-400) 05/13/22 23:53 MPV 9.5 fL (7.4-10.4) 05/13/22 23:53 Neut % (Auto) 85.8 % 05/13/22 23:53 Lymph % (Auto) 8.6 % 05/13/22 23:53 Morrison % (Auto) 4.5 % 05/13/22 23:53 Eos % (Auto) 0.1 % 05/13/22 23:53 Baso % (Auto) 0.3 % 05/13/22 23:53 Neut # (Auto) 9.86 10^3/uL (1.8-7.7) H 05/13/22 23:53 Lymph # (Auto) 1.0 10^3/uL (0.8-4.8) 05/13/22 23:53 Morrison # (Auto) 0.5 10^3/uL (0.2-0.9) 05/13/22 23:53 Eos # (Auto) 0.0 10^3/uL (0.0-0.8) 05/13/22 23:53 Baso # (Auto) 0.0 10^3/uL (0.0-0.1) 05/13/22 23:53 Nucleated RBC % (auto) 0 % 05/13/22 23:53 Nucleated RBCs # 0.0 /100WBC 05/13/22 23:53 PT 11.80 SECONDS (12.1-14.9) L 05/13/22 23:53 INR 0.85 (0.8-1.2) 05/13/22 23:53 Sodium 135 mmol/L (136-145) L 05/13/22 23:53 Potassium 4.2 mmol/L (3.5-5.1) 05/13/22 23:53 Chloride 102 mmol/L (98-107) 05/13/22 23:53 Carbon Dioxide 21 mmol/L (22-29) L 05/13/22 23:53 Anion Gap 16.2 (5-19) 05/13/22 23:53 BUN 14 mg/dL (8-23) 05/13/22 23:53 Creatinine 0.8 mg/dL (0.5-0.9) 05/13/22 23:53 GFR Calculation 72.0 mL/min (90-130) L 05/13/22 23:53 Glucose 140 mg/dL (65-115) H 05/13/22 23:53 Calculated Osmolality 283 mOsm/kg (285-295) L 05/13/22 23:53 Calcium 9.3 mg/dL (8.5-10.5) 05/13/22 23:53 Total Bilirubin 0.3 mg/dL (0.15-1.2) 05/13/22 23:53 AST 15 U/L (0-32) 05/13/22 23:53 ALT 18 U/L (0-33) 05/13/22 23:53 Alkaline Phosphatase 131 U/L (35-105) H 05/13/22 23:53 Troponin T Baseline 12 ng/L (0-10) H 05/13/22 23:53 Total Protein 7.5 g/dL (6.6-8.7) 05/13/22 23:53 Albumin 4.1 g/dL (3.5-5.2) 05/13/22 23:53 Globulin 3.4 g/dL (1.3-4.6) 05/13/22 23:53 EKG Data EKG 1: I personally reviewed and interpreted this EKG as follows: EKG interpretation date: 05/13/22 EKG interpretation time: 23:48 Interpretation: afib with rvr hr [address] or t wave abnormalities qrs 77 qtc 340 Other EKG comments: Chest X-Ray 05/13/22 23:46 IMPRESSION: 1. No definite CHF or pneumonia. 2. Other findings discussed above. Critical Care Time Critical Care Time: Critical Care Time: Yes Total Critical Care Time: 35 Attestation: The high probability of a clinically significant, sudden or life threatening deterioration of the patient's cv system(s) required my full and direct attention, intervention and personal management. The critical care time is as shown. This time is in addition to time spent performing any reported procedures but includes the following: [x] Data and vital sign review and interpretation [x] Patient assessment, examination and intervention [x] Documentation [x] Medication orders and management Discharge Plan Discharge Patient Disposition: Admitted As Inpatient Clinical Impression: Atrial fibrillation with RVR Condition: Stable Coding Level of Care Code ED Resource Manager for Marquita Streeter
[2022-05-13] MEDS: dilTIAZem 5 mg/mL SDV 5 mL 20 MG IVP (23:58)
[2022-05-14] VITALS (173 sets, daily range): BP systolic 68–169; BP diastolic 50–109; PULSE 53–145; RESP 7–31; TEMP 36.5–36.9; O2SAT 88–100
[2022-05-14] MEDS: dilTIAZem 100 MG in sodium chloride 0.9% (add-van) 100 ML IV (00:01)
[2022-05-14 00:08] LABS: Basophils % 0.3 %; Eosinophils % 0.1 %; Hematocrit 39.9 % (37.0-47.0); Lymphocytes % 8.6 %; Mean Corpuscular HGB Conc 30.1 g/dL (30.0-36.0); Mean Corpuscular Hemoglobin 24.6 pg (28.0-34.0); Mean Corpuscular Volume 81.8 fl (81-99); Mean Platelet Volume 9.5 fL (7.4-10.4); Monocytes # 0.5 10^3/uL (0.2-0.9); Monocytes % 4.5 %; Neutrophils # 9.86 10^3/uL (1.8-7.7); Neutrophils % 85.8 %; Nucleated Red Blood Cells % 0 %; Platelet Count 283 10^3/cmm (130-400); Red Blood Count 4.88 10^6/uL (4.1-5.3); Red Cell Distribution Width 15.2 % (12.1-15.1); White Blood Count 11.5 10^3/uL (4.0-10.0)
[2022-05-14 00:24] LABS: INR 0.85 (0.8-1.2)
[2022-05-14 00:41] LABS: Troponin(5th) Baseline 12 ng/L (0-10)
[2022-05-14 00:44] LABS: Alanine Aminotransferase 18 U/L (0-33); Albumin Level 4.1 g/dL (3.5-5.2); Alkaline Phosphatase 131 U/L (35-105); Anion Gap 16.2 (5-19); Aspartate Amino Transferase 15 U/L (0-32); Blood Urea Nitrogen 14 mg/dL (8-23); Calcium 9.3 mg/dL (8.5-10.5); Carbon Dioxide 21 mmol/L (22-29); Chloride 102 mmol/L (98-107); Globulin 3.4 g/dL (1.3-4.6); Glucose 140 mg/dL (65-115); Osmolality Calculated 283 mOsm/kg (285-295); Potassium 4.2 mmol/L (3.5-5.1); Sodium 135 mmol/L (136-145); Total Bilirubin 0.3 mg/dL (0.15-1.2); Total Protein 7.5 g/dL (6.6-8.7)
--- NOTE | 2022-05-14 01:31 | P.HP_ITS ---
Providers/Chief Complaint Primary Care Provider: Anthony Jacobs MD Chief Complaint: AFIB History of Present Illness Xiao Kinsey is a 67 year old female past medical history of hypertension, obesity, tachycardia, osteoarthritis, former smoker, history of gastric bypass in 2015 presented to the hospital today with complaint of palpitations. She has worn Holter monitor in the past as well which showed sinus bradycardia to sinus tachycardia with frequent PVCs and sinus arrhythmia. Sitting in ER EKG showed A-fib with RVR with rate of 160s. She was given 20 Cardizem push and started on a Cardizem drip. She denies a history of atrial fibrillation in the past. WBC 11.5, INR 1.85, sodium 135, potassium 4.5, creatinine 0.8, AST 15, ALT 18. Reviewed EKG which showed A-fib heart rate 155. Chest x-ray did not show CHF or pneumonia. Patient denies chest pain, shortness of breath, abdominal pain, nausea, vomiting, diarrhea at this time. Medications/Allergies Home Medications Medication Instructions Recorded Confirmed Last Taken Type Lactobacillus 40-Bifidobact 1 cap PO DAILY 05/30/19 04/08/22 05/29/19 History 3-S.thermophilus 100 billion cell capsule (Probiotic) magnesium 250 mg tablet 250 mg PO DAILY 05/30/19 04/08/22 05/29/19 History vitamin C 500 mg-multivitamin with 1 tab PO DAILY 05/30/19 04/08/22 05/29/19 History minerals chewable tablet (Emergen-C) omeprazole 20 mg tablet,delayed 20 mg PO DAILY 01/16/20 04/08/22 Unknown History release losartan 50 mg tablet 50 mg PO DAILY 02/27/20 04/08/22 Unknown History turmeric 400 mg capsule mg PO 08/27/20 04/08/22 Unknown History mecobalamin (vitamin B12) 1,000 1,000 mcg PO DAILY 07/22/21 04/08/22 Unknown History mcg chewable tablet (B12 Active) Spectrum AFO to the right #1 ea 04/08/22 04/08/22 Unknown Rx Allergies Allergy/AdvReac Type Severity Reaction Status Date / Time Sulfa (Sulfonamide Allergy Intermediate hives Verified 05/14/22 01:39 Antibiotics) NSAIDS (Non-Steroidal Allergy Unknown Verified 03/30/23 03:19 Anti-Inflamma tetracycline Allergy ALGY-Anaphy Verified 05/14/22 01:39 laxis methylprednisolone AdvReac Unknown Verified 05/14/22 03:18 [From Medrol] PFSH Acute PFSH: Medical History Hypertension Obesity Surgical History Hx of gastric bypass Gastric sleeve 2014 Hx of hysterectomy Total knee replacement status Family History Other CAD (coronary artery disease) Cancer Diabetes Stroke Social History Smoking and tobacco status: never smoked Alcohol intake: current Alcohol intake frequency: other Vitals/I&O/Wt Last Vital Signs Temp 97.7 F 05/13/22 23:35 Pulse 103 H 05/14/22 00:30 Resp 22 H 05/14/22 00:30 BP 127/92 05/14/22 00:30 Pulse Ox 94 05/14/22 00:30 O2 Del Method 05/14/22 00:30 05/13/22 05/13/22 05/14/22 14:59 22:59 06:59 Intake Total 10.583 / 10.583 Balance 10.583 / 10.583 Weight last 48 hrs Weight 112.491 kg Physical Exam Narrative: General: Alert oriented x3, patient seen laying in bed HEENT: Normocephalic, atraumatic, EOMI, breathing NAD Cardio: Regular rate rhythm, normal S1-S2, Respiratory: Good bilateral air entry, CTA b/l GI: Abdomen soft, nontender, bowel sounds + Extremities: no edema Data 05/13/22 23:53 05/13/22 23:53 A&P Assessment and plan (1) Atrial fibrillation with RVR: (2) Symptomatic PVCs: (3) Tachycardia: (4) Obesity: Qualifiers: Body mass index: BMI 40.0-44.9 Obesity classification: adult class 3 (BMI >= 40) Obesity type: due to excess calories Serious obesity comorbidity presence: unspecified whether serious comorbidity present Qualified Code(s): E66.01 - Morbid (severe) obesity due to excess calories; Z68.41 - Body mass index [BMI]40.0-44.9, adult (5) Intermittent palpitations: (6) Hypertension: Qualifiers: Hypertension type: essential hypertension Qualified Code(s): I10 - Essential (primary) hypertension Plan #New onset atrial fibrillation with RVR #Hypertension #Former smoker #History of gastric bypass #History of osteoarthritis -Cardizem 20 push given, started on Cardizem drip -Patient previous Holter monitor worn last year showed predominantly sinus bradycardia rhythm. I will avoid beta-blockers at this time. We will convert to oral Cardizem once rate is controlled. ? Patient to follow-up with cardiology as an outpatient after discharge ? [id number]: 3. Moderate to high risk. Start eliquis 5 bid ? Continue omeprazole -Hold losartan at this time. ? Baseline troponin 12. Will await 2-hour 6-hour troponin. ? Monitor heart rate on telemetry ? Check magnesium and keep above 2 and potassium above 4. -I personally reviewed patient's Holter monitor results from last year in chart review and read through her cardiology outpatient visit notes. She follows with Dr. Harden. I reviewed the EKG myself as well from admission along with chest x-r ay image and agree with radiology report.. - Check echo Full code SCDs: Heparin SQ twice daily Attestations Medical Necessity Statement*: Observation admission for management of atrial fibrillation with RVR. If heart rate remains uncontrolled may require greater than 2 midnight stay but we will assess tomorrow morning. Diagnoses Atrial fibrillation with RVR I48.91 Symptomatic PVCs I49.3 Tachycardia R00.0 Obesity E66.01; Z68.41 Body mass index: BMI 40.0-44.9 Obesity classification: adult class 3 (BMI >= 40) Obesity type: due to excess calories Serious obesity comorbidity presence: unspecified whether serious co morbidity present Intermittent palpitations R00.2 Hypertension I10 Hypertension type: essential hypertension
--- NOTE | 2022-05-14 01:53 | USCV_ITS ---
Xiao Kinsey Age: 67 Gender: F : 1955 Exam Date: 05/14/2022 02:09 Ordering Phys: Mariely Mehta MD Technologist: EDWARD [place] [facility] [place]ication: atrial fibrillation, palpitations, tachycardia BP: 113 / 80 HR: 96 Rhythm: atrial fibrillation Technical Quality: Adequate with [employer]ISON MEASUREMENTS (Male / Female) Normal Values 2D ECHO LV Diastolic Diameter PLAX 3.2 cm 4.2 - 5.9 / 3.9 - 5.3 cm LV Systolic Diameter PLAX 2.1 cm IVS Diastolic Thickness 2.0 cm 0.6 - 1.0 / 0.6 - 0.9 cm IVS Systolic Thickness 2.2 cm LVPW Diastolic Thickness 1.4 cm 0.6 - 1.0 / 0.6 - 0.9 cm LVPW Systolic Thickness 1.9 cm LVOT Diameter 1.7 cm LV Ejection Fraction 2D Teich 66.3 % LV Ejection Fraction MOD 2C 57.5 % LV Ejection Fraction 2C AL 58.3 % LA Diameter 4.3 cm LA Width 4.6 cm LA Height 4.5 cm RA Width 3.7 cm RA Height 5.1 cm Aorta at Sinotubular Diameter 3.5 cm IVC Diameter 0.8 cm M-MODE Aortic Annulus Diameter 3.6 cm LA Ao Ratio MM 1.2 MV E Point Septal Separation 0.0 cm DOPPLER AV Peak Velocity 136.0 cm/s LVOT Peak Velocity 117.0 cm/s AV Area Cont Eq vti 2.1 cm squared AV Area Cont Eq pk 1.9 cm squared MV Area PHT 4.1 cm squared MV E' Velocity 55.5 cm/s Mitral E to MV E' Ratio 9.2 Mitral E to LV E' Lateral Ratio 8.4 Mitral E to LV E' Septal Ratio 10.3 TR Peak Velocity 242.3 cm/s TR Peak Gradient 23.5 mmHg TV Peak E Velocity 69.0 cm/s Right Atrial Pressure 5.0 mmHg Pulmonary Artery Systolic Pressu 28.5 mmHg PV Peak Velocity 104.0 cm/s RV Acceleration Time 0.1 s RV Ejection Time 0.3 s RV AcT/ET 0.4 FINDINGS Left Ventricle Left ventricle normal in size. LV systolic function is normal with EF of 60-65%. No regional wall motion abnormalities are seen. Right Ventricle Normal in size and function Right Atrium Normal in size Left Atrium Normal in size and Mitral Valve Structurally normal mitral valve. Aortic Valve Structurally normal aortic valve. No significant stenosis or regurgitation. Tricuspid Valve Mild tricuspid regurgitation. Pulmonary artery systolic pressure is normal. Pulmonic Valve Not well-visualized. Trace pulmonic regurgitation. Pericardium Normal Aorta Normal in size IVC Appears to be normal CONCLUSIONS LV systolic function is normal with EF of 60 to 65%. Mild tricuspid regurgitation Trace pulmonic regurgitation No comparison studies are available Hitesh Aguayo MD (Electronically Signed) Final Date: 14 May 2022 17:57 S
[2022-05-14 02:08] LABS: Troponin 5 2HR 21.85 ng/L (0-10)
[2022-05-14 02:14] LABS: Thyroid Stimulating Hormone 1.01 uIU/mL (0.27-4.20); Troponin 5 2HR Delta 9.85 ABS# (0-10)
[2022-05-14] MEDS: sodium chloride 0.9% 1,000 ML 75 ML IV (02:46)
[2022-05-14] MEDS: ketorolac 30 mg/mL INJ 15 MG IVP ×3 (03:15→23:08)
--- NOTE | 2022-05-14 03:43 | ECG_ITS ---
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 Measurements Intervals [place] Rate: 98 P: 0 [place]: 0 QRS: 12 QRSD: 89 T: -12 QT: 336 QTc: 430 Interpretive Statements ATRIAL FIBRILLATION Compared to ECG 05/13/2022 23:48:22 ST (T wave) deviation no longer present Electronically Signed On 05-14-2022 18:47:30 CDT by Hitesh Aguayo M.D. [email or web address] [email or web address] district hospital.[employer]/store/OM/[id number]
--- NOTE | 2022-05-14 04:24 | PC.NURSE ---
Left a message for hospitalist- Dr Henriquez with pt request for additional pain medication. Pt received Toradol 15mg ivp 1 hr ago with minimal benefit, Position changes, Heat minimal benefit.
[2022-05-14] MEDS: HYDROmorphone 1 mg/mL INJ 1 mL 0.5 MG IVP (04:58)
[2022-05-14] MEDS: perflutren protein-a microsphr 0.22 mg/mL SDV 3 mL IV (05:48)
[2022-05-14 06:37] LABS: Troponin 5 6HR 26.74 ng/L (0-10)
[2022-05-14 06:42] LABS: Troponin 5 6HR Delta 14.74 ng/L (0-12)
--- NOTE | 2022-05-14 06:46 | PC.NURSE ---
Left a message for Dr Henriquez to let her know the critical lab results on pt for her 6hr delta.
[2022-05-14] MEDS: ondansetron 2 mg/ML SDV 2 mL 4 MG IVP (07:58)
[2022-05-14] MEDS: metoprolol tartrate 25 mg Tablet PO ×2 (08:27→21:03)
[2022-05-14] MEDS: pantoprazole DR 40 mg Tablet PO (08:28)
[2022-05-14] MEDS: apixaban 5 mg Tablet PO ×2 (08:28→17:29)
[2022-05-14 08:55] LABS: D Dimer 0.94 ug/mIFEU (0-0.59)
--- NOTE | 2022-05-14 09:17 | PC.NURSE ---
REceived patient From ER staff at 0715. Patient is alert and oriented to person, place, time, and situation. Still in AFIB, but heart rate well controlled, usually in the 80's. BP: 145/87, SPO2: 95% on room air.
--- NOTE | 2022-05-14 10:09 | PM.MISC ---
Miscellaneous Note Note: D-dimer unremarkable Heart rate well controlled Start p.o. metoprolol Continue anticoagulating agent Patient counseled on Eliquis use and side effects Awake and alert Euvolemic Patient is endorsing sleep cycle disturbance and possibility for sleep apnea Currently she is doing well on good spirits Awake and alert Room air Heart rate in 70s Plan Overnight pulse oximetry study Plan to discharge her tomorrow Continue Eliquis, metoprolol 25 mg twice daily Waiting on mag levels D-dimer 0.9 TSH normal
[2022-05-14] MEDS: magnesium oxide 400 mg tablet 200 MG PO (12:17)
--- NOTE | 2022-05-14 13:57 | ECG_ITS ---
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 Measurements Intervals [place] Rate: 82 P: -6 [place]: 163 QRS: 5 QRSD: 84 T: 12 QT: 369 QTc: 431 Interpretive Statements SINUS RHYTHM Compared to ECG 05/14/2022 03:43:21 Atrial fibrillation no longer present Electronically Signed On 05-14-2022 18:46:21 CDT by Hitesh Aguayo M.D. [id number]
[2022-05-14] MEDS: HYDROcodone-acetaminophen 5-325 mg Tablet 1 TAB PO ×2 (14:25→19:14)
[2022-05-14] MEDS: cyclobenzaprine 10 mg Tablet 5 MG PO (16:44)
--- NOTE | 2022-05-14 17:56 | PC.NURSE ---
Addendum entered by Art Kemp RN 05/14/22 18:03: Shift summary: uneventful shift. Patient was up to the chair for about 6 hours today. Frequently up to the bathroom and ambulates with no assistance. Heart rate continues to be afib but is oftentimes normal sinus, well controlled and usually in the 70's-80's. Original Note: Shift summary: uneventful shift. Patient was up to the chair for about 6 hours today. Frequently up to the bathroom and ambulates with no assistance. Heart rate continues to be afib, but has been well controlled and usually in the 70's-80's.
[2022-05-15] VITALS (10 sets, daily range): BP systolic 112–165; BP diastolic 76–121; PULSE 64–87; RESP 12–23; TEMP 36.4–36.9; O2SAT 92–98
[2022-05-15] MEDS: HYDROcodone-acetaminophen 5-325 mg Tablet 1 TAB PO ×2 (00:20→07:01)
[2022-05-15] MEDS: cyclobenzaprine 10 mg Tablet 5 MG PO (00:24)
[2022-05-15] MEDS: ondansetron 2 mg/ML SDV 2 mL 4 MG IVP (04:26)
[2022-05-15 04:39] LABS: Basophils # 0.1 10^3/uL (0.0-0.1); Basophils % 0.8 %; Eosinophils # 0.1 10^3/uL (0.0-0.8); Eosinophils % 1.5 %; Hematocrit 37.4 % (37.0-47.0); Hemoglobin 10.6 g/dL (11.5-15.3); Lymphocytes # 1.7 10^3/uL (0.8-4.8); Lymphocytes % 18.2 %; Mean Corpuscular HGB Conc 28.3 g/dL (30.0-36.0); Mean Corpuscular Hemoglobin 23.9 pg (28.0-34.0); Mean Corpuscular Volume 84.4 fl (81-99); Mean Platelet Volume 9.3 fL (7.4-10.4); Monocytes # 0.6 10^3/uL (0.2-0.9); Monocytes % 6.1 %; Neutrophils # 6.92 10^3/uL (1.8-7.7); Neutrophils % 73.1 %; Nucleated Red Blood Cells % 0 %; Platelet Count 225 10^3/cmm (130-400); Red Blood Count 4.43 10^6/uL (4.1-5.3); Red Cell Distribution Width 15.2 % (12.1-15.1); White Blood Count 9.5 10^3/uL (4.0-10.0)
[2022-05-15 04:54] LABS: Anion Gap 15.5 (5-19); Blood Urea Nitrogen 19 mg/dL (8-23); Carbon Dioxide 23 mmol/L (22-29); Chloride 107 mmol/L (98-107); Creatinine Clr Calc Pharmacy 85.1968; Glomerular Filtration Rate 62.8 mL/min (90-130); Glucose 99 mg/dL (65-115); Magnesium 2.2 mg/dL (1.7-2.3); Osmolality Calculated 294 mOsm/kg (285-295); Potassium 4.5 mmol/L (3.5-5.1); Sodium 141 mmol/L (136-145)
[2022-05-15] MEDS: apixaban 5 mg Tablet PO (08:12)
[2022-05-15] MEDS: metoprolol tartrate 25 mg Tablet PO (08:12)
[2022-05-15] MEDS: pantoprazole DR 40 mg Tablet PO (08:13)
[2022-05-15] MEDS: magnesium oxide 400 mg tablet 200 MG PO (08:13)
--- NOTE | 2022-05-15 09:36 | PM.DCS ---
Discharge Providers Date of Admission: 05/14/22 00:48 Date of Discharge: May 15, 2022 Attending Provider at Admission: Mariely Mehta MD Attending Provider at Discharge: Anselmo Muñoz MD Primary Care Provider: Anthony Jacobs MD Diagnoses at Discharge Discharge Diagnosis (1) Atrial fibrillation with RVR: Status: Acute (2) Symptomatic PVCs: Status: Acute (3) Tachycardia: Status: Acute (4) Obesity: Status: Acute Qualifiers: Obesity type: due to excess calories Obesity classification: adult class 3 (BMI >= 40) Serious obesity comorbidity presence: unspecified whether serious comorbidity present Body mass index: BMI 40.0-44.9 Qualified Code(s): E66.01 - Morbid (severe) obesity due to excess calories; Z68.41 - Body mass index [BMI]40.0-44.9, adult (5) Intermittent palpitations: Status: Acute (6) Hypertension: Status: Acute Qualifiers: Hypertension type: essential hypertension Qualified Code(s): I10 - Essential (primary) hypertension Reason for Visit Reason for Visit: AFIB Hospital Course Hospital Course 67-year female who was admitted to the hospital for palpitations, she was diagnosed with new onset A-fib RVR, she converted to sinus rhythm with a Cardizem drip, for rate control she was put on metoprolol 25 mg twice daily Eliquis was started, her insurance might not reimburse anticoagulating agent, I will try to use anticoagulating agent which is once a day Xarelto 20 mg daily. D-dimer 0.9 no active chest pain. Overnight pulse ox did show that she has significant hypoxic events overnight she will need sleep study referral at the time of discharge. I have asked her to cut back on her losartan dose to 25mg instead of 50 mg. She is being discharged with stable vitals. Heart rate 67 blood pressure 138/84 mmHg, she is doing well on room air She also suffers from restless leg syndrome for which she could follow-up with her PCP Physical Exam Narrative: Awake and alert S1-S2 sinus rhythm Hemodynamically stable pleasant and cooperative Currently on room air Eating breakfast Discharge Data Studies Completed and Pending Completed Studies During Hospitalization Category Date Time Status XR chest 1V portable [id number] Stat Exams 05/13/22 23:46 Completed CV. echo wo/w contrast [id number] Routine Ultrasound 05/14/22 01:53 Completed Radiology Impressions Chest X-Ray 05/13/22 23:46 IMPRESSION: 1. No definite CHF or pneumonia. 2. Other findings discussed above. Laboratory Results WBC 9.5 10^3/uL (4.0-10.0) 05/15/22 04:05 RBC 4.43 10^6/uL (4.1-5.3) 05/15/22 04:05 Hgb 10.6 g/dL (11.5-15.3) L 05/15/22 04:05 Hct 37.4 % (37.0-47.0) 05/15/22 04:05 MCV 84.4 fl (81-99) 05/15/22 04:05 MCH 23.9 pg (28.0-34.0) L 05/15/22 04:05 MCHC 28.3 g/dL (30.0-36.0) L D 05/15/22 04:05 RDW 15.2 % (12.1-15.1) H 05/15/22 04:05 Plt Count 225 10^3/cmm (130-400) 05/15/22 04:05 MPV 9.3 fL (7.4-10.4) 05/15/22 04:05 Neut % (Auto) 73.1 % 05/15/22 04:05 Lymph % (Auto) 18.2 % 05/15/22 04:05 [place] % (Auto) 6.1 % 05/15/22 04:05 Eos % (Auto) 1.5 % 05/15/22 04:05 Baso % (Auto) 0.8 % 05/15/22 04:05 Neut # (Auto) 6.92 10^3/uL (1.8-7.7) 05/15/22 04:05 Lymph # (Auto) 1.7 10^3/uL (0.8-4.8) 05/15/22 04:05 [place] # (Auto) 0.6 10^3/uL (0.2-0.9) 05/15/22 04:05 Eos # (Auto) 0.1 10^3/uL (0.0-0.8) 05/15/22 04:05 Baso # (Auto) 0.1 10^3/uL (0.0-0.1) 05/15/22 04:05 Nucleated RBC % (auto) 0 % 05/15/22 04:05 Nucleated RBCs # 0.0 /100WBC 05/15/22 04:05 PT 11.80 SECONDS (12.1-14.9) L 05/13/22 23:53 INR 0.85 (0.8-1.2) 05/13/22 23:53 D-Dimer 0.94 ug/mIFEU (0-0.59) H 05/14/22 08:15 Sodium 141 mmol/L (136-145) 05/15/22 04:05 Potassium 4.5 mmol/L (3.5-5.1) 05/15/22 04:05 Chloride 107 mmol/L (98-107) 05/15/22 04:05 Carbon Dioxide 23 mmol/L (22-29) 05/15/22 04:05 Anion Gap 15.5 (5-19) 05/15/22 04:05 BUN 19 mg/dL (8-23) 05/15/22 04:05 Creatinine 0.9 mg/dL (0.5-0.9) 05/15/22 04:05 GFR Calculation 62.8 mL/min (90-130) L 05/15/22 04:05 Glucose 99 mg/dL (65-115) 05/15/22 04:05 Calculated Osmolality 294 mOsm/kg (285-295) 05/15/22 04:05 Calcium 9.0 mg/dL (8.5-10.5) 05/15/22 04:05 Magnesium 2.2 mg/dL (1.7-2.3) 05/15/22 04:05 Total Bilirubin 0.3 mg/dL (0.15-1.2) 05/13/22 23:53 AST 15 U/L (0-32) 05/13/22 23:53 ALT 18 U/L (0-33) 05/13/22 23:53 Alkaline Phosphatase 131 U/L (35-105) H 05/13/22 23:53 Troponin T Baseline 12 ng/L (0-10) H 05/13/22 23:53 Troponin T 120 Minute 21.85 ng/L (0-10) H 05/14/22 01:34 Delta Troponin T 9.85 ABS# (0-10) 05/14/22 01:34 Troponin T Hi Sens 6Hr 26.74 ng/L (0-10) H 05/14/22 06:00 Troponin T Hi Sens 6Hr Delta 14.74 ng/L (0-12) H* 05/14/22 06:00 Total Protein 7.5 g/dL (6.6-8.7) 05/13/22 23:53 Albumin 4.1 g/dL (3.5-5.2) 05/13/22 23:53 Globulin 3.4 g/dL (1.3-4.6) 05/13/22 23:53 TSH 1.01 uIU/mL (0.27-4.20) 05/14/22 01:34 Vitals Last Vital Signs Temp 97.6 F 05/15/22 08:00 Pulse 67 05/15/22 08:00 Resp 18 05/15/22 08:00 BP 138/84 05/15/22 08:00 Pulse Ox 96 05/15/22 08:00 O2 Del Method 05/15/22 08:00 Discharge Plan Discharge Patient Disposition: Home Condition: Stable Prescriptions: New metoprolol tartrate 25 mg Tablet 25 mg PO BID@0900,2100 Qty: 60 4RF Xarelto 20 mg tablet 20 mg PO DAILY Qty: 30 6RF Rx Instructions: must administer with evening meal Continued omeprazole 20 mg tablet,delayed release (DR/EC) 20 mg PO DAILY turmeric 400 mg capsule 400 mg PO DAILY (DME) Spectrum AFO to the right See Rx Instructions .Route .MEDSUPPLY Qty: 1 0RF Rx Instructions: As directed by HEIDI&0 magnesium 250 mg Tablet 250 mg PO DAILY Probiotic 100 billion cell Capsule 1 cap PO DAILY Emergen-C 500 mg Tablet,Chewable 1 tab PO DAILY Beet Root 2 cap PO DAILY Changed losartan 50 mg tablet 25 mg PO DAILY Qty: 30 0RF Discharge Orders: Discharge Order (Routine); Ordered 05/15/22 Ordered By: Anselmo Muñoz Other Ambulatory Orders: Sleep Study/Titration (Routine) Timeframe: 1 Week Facility: [facility] - Location: [facility] Ordered By: Anselmo Muñoz Referrals: Anthony Jacobs MD [Primary Care Provider] - 2 weeks Discharge Diet: Cardiac Discharge Activity: Increase activity as tolerated Patient Instructions: Opioid Safety Discharge Attestations Time Spent in Discharge Care*: greater than 30 min Quality Metrics Clinical Quality Measures [ No reported AMI, CVA or VTE this stay] Coding Level of Care Code Acute Code for Chg Fwd Diagnoses Atrial fibrillation with RVR I48.91 Symptomatic PVCs I49.3 Tachycardia R00.0 Obesity E66.01; Z68.41 Obesity type: due to excess calories Obesity classification: adult class 3 (BMI >= 40) Serious obesity comorbidity presence: unspecified whether serious comorbidity present Body mass index: BMI 40.0-44.9 Intermittent palpitations R00.2 Hypertension I10 Hypertension type: essential hypertension
--- NOTE | 2022-05-15 10:53 | PC.NURSE ---
Patient discharged... IVs removed. Medications sent to preferred pharmacy. New appointment and new medication education provided. Patient signature form signed. Xarelto coupons provided to patient.
== END 2022-05-15 10:54 | disposition home or self-care (01) ==
LOC: ER 05-14 00:40 → ER IP 05-14 02:04 → ICU 05-14 07:37 → ER IP 05-15 08:02
PROVIDERS: Admitting Provider Internal Medicine; Emergency Provider Emergency Medicine; PCP Family Medicine; Visit Provider Internal Medicine
DX: I48.91 Unspecified atrial fibrillation (principal); I49.3 Ventricular premature depolarization; R00.0 Tachycardia, unspecified; E66.01 Morbid (severe) obesity due to excess calories; Z68.41 Body mass index [BMI] 40.0-44.9, adult; R00.2 Palpitations; I10 Essential (primary) hypertension; Z87.891 Personal history of nicotine dependence; Z98.84 Bariatric surgery status; G47.34 Idiopathic sleep related nonobstructive alveolar hypoventilation
CPT/HCPCS: 36415; 71045; 80048; 80053; 83735; 84443; 84484; 85025; 85378; 85610; 93005; 93306; 96365; 96375; 96376; 99285; C8929; G0378; J1170; J1885; J2405; J3490; J7030; Q9956

== ENCOUNTER → 2022-06-15 11:24 | Outpatient (BNVA) | payer MEDICARE, MEDICAID, SELFPAY | PROVIDERS: PCP Family Medicine; Visit Provider Podiatrist Foot & Ankle Surgery | DX: M76.821 Posterior tibial tendinitis, right leg (principal); M21.612 Bunion of left foot; M21.611 Bunion of right foot; M21.622 Bunionette of left foot; M21.621 Bunionette of right foot; M21.41 Flat foot [pes planus] (acquired), right foot | CPT/HCPCS: 99213 ==

== ENCOUNTER → 2022-08-04 10:44 | Outpatient (BNVA) | payer MEDICARE, MEDICAID, SELFPAY | PROVIDERS: PCP Family Medicine; Visit Provider Internal Medicine Cardiovascular Disease | DX: I48.91 Unspecified atrial fibrillation (principal); I49.3 Ventricular premature depolarization; I10 Essential (primary) hypertension; E66.01 Morbid (severe) obesity due to excess calories; Z68.41 Body mass index [BMI] 40.0-44.9, adult; M19.90 Unspecified osteoarthritis, unspecified site; I48.0 Paroxysmal atrial fibrillation; I48.3 Typical atrial flutter | CPT/HCPCS: 93005; 99214 ==

== ENCOUNTER → 2022-10-07 14:38 | Outpatient (BNVA) | payer MEDICARE, MEDICAID, SELFPAY | PROVIDERS: PCP Family Medicine; Visit Provider Podiatrist Foot & Ankle Surgery | DX: M21.40 Flat foot [pes planus] (acquired), unspecified foot; M76.822 Posterior tibial tendinitis, left leg; M21.612 Bunion of left foot; M21.611 Bunion of right foot; M21.622 Bunionette of left foot; M21.621 Bunionette of right foot | CPT/HCPCS: 99213 ==

== ENCOUNTER → 2023-01-05 14:42 | Outpatient (BNVA) | payer MEDICARE, MEDICAID, SELFPAY | PROVIDERS: PCP Family Medicine; Visit Provider Podiatrist Foot & Ankle Surgery | DX: M76.821 Posterior tibial tendinitis, right leg (principal); M21.611 Bunion of right foot; M21.612 Bunion of left foot; M21.622 Bunionette of left foot; M21.621 Bunionette of right foot; M21.42 Flat foot [pes planus] (acquired), left foot; M21.41 Flat foot [pes planus] (acquired), right foot | CPT/HCPCS: 99213 ==

== ENCOUNTER 2023-01-30 01:05 | Emergency (ER) | payer MEDICARE, MEDICAID, SELFPAY ==
[2023-01-30 01:09] VITALS: BMI 46.7
[2023-01-30 01:13] VITALS: BP 144/89; PULSE 85; RESP 16; TEMP 36.7; O2SAT 93
--- NOTE | 2023-01-30 01:32 | W.ED.EXTPRO ---
HPI - Extremity Problem General: Chief complaint: Extremity Injury, Lower Stated complaint: hip pain, sciatic nerve pain Time Seen by Provider: 01/30/23 01:07 History of Present Illness: 68-year-old female presents emergency department complaints of right hip sciatic pain. She states that she has been seen by her primary care provider and has been treated with hydrocodone but tonight she had a flareup and the pain she is having is a 8 out of 10. She states that 2 weeks ago she fell and since that time she was doing better until this evening. She states she did have an x-ray 2 weeks ago when she fell and there is no fracture or dislocation of the hip. She states that her primary care provider told her that the area where her sciatic nerve normally runs is narrowed and that is what is causing her pain. Review of Systems General: Reports: 10 or more systems reviewed and unremarkable except in HPI and below Musc: Reports: extremity pain [facility] ED PFSH: Medical History Atrial fibrillation with RVR Hypertension Intermittent palpitations Obesity Paroxysmal atrial fibrillation Symptomatic PVCs Tachycardia Surgical History Hx of gastric bypass Gastric sleeve 2014 Hx of hysterectomy Total knee replacement status Family History Other CAD (coronary artery disease) Cancer Diabetes Stroke Social History Smoking and tobacco/nicotine status: never used tobacco/nicotine Alcohol intake: current Alcohol intake frequency: other Substance/Drug Use: never Physical Exam Narrative: EXAM NARRATIVE: Constitutional: the patient appears well nourished and of normal development. Vital signs as documented. No acute distress at present. Alert and oriented-to person, place, time and situation. Head, eyes, ears, nose, mouth, throat: Normocephalic, atraumatic. Pupils-equal, round, reactive to light. No scleral icterus. Normal-appearing external ears. Normal appearing nasal turbinates, no drainage. No obvious oral lesions, posterior oropharynx without erythema or exudates. Neck: Supple, trachea is midline, no lymphadenopathy, no jugular venous distension, thyromegaly, or carotid bruits. Carotid upstrokes are brisk bilaterally. Lungs: clear to auscultation to all lung carroll. Symmetrical rise and fall of chest, no obvious signs of increased work of breathing at present. Cardiac: Regular rate and rhythm, positive S1, S2. No murmurs, rubs or gallops that I can appreciate Abdomen: Soft, non-tender to palpation, normal active bowel sounds to all quadrants. No palpable masses, no organomegaly and abdominal bruits. Extremities: 2+ pulses in the upper extremities that are equal bilaterally, 2+ pulses in the lower extremities that are equal bilaterally. Non-edematous. Moves all extremities well, sensation to all extremities are noted. Skin: Warm, dry, intact. Course Vital Signs: Vital signs: Vital Signs Temperature 98.1 F 01/30/23 01:13 Pulse Rate 85 01/30/23 01:13 Respiratory Rate 16 01/30/23 01:13 Blood Pressure 144/89 01/30/23 01:13 Pulse Oximetry 93 01/30/23 01:13 MDM - Extremity (Nontraumatic) Medical Decision Making Physical exam completed document I will provide her pain relief as well as corticosteroid to decrease inflammation Medical Records I reviewed the patient's medical records. No radiology studies performed this visit Discharge Plan Discharge Patient Disposition: Home Clinical Impression: Acute right-sided back pain with sciatica Prescriptions: No Action omeprazole 20 mg tablet,delayed release (DR/EC) 20 mg PO DAILY turmeric 400 mg capsule 400 mg PO DAILY (DME) SOLE SUPPORTS See Rx Instructions .Route .MEDSUPPLY Qty: 1 0RF Rx Instructions: As directed tramadol 50 mg tablet 100 mg PO BID PRN (Reason: pain) 30 Days Qty: 120 0RF Belsomra 10 mg tablet 10 mg PO .HS tramadol 100 mg tablet 100 mg PO BID PRN (Reason: pain) 30 Days Qty: 60 0RF Xarelto 20 mg tablet 20 mg PO DAILY Qty: 30 6RF Rx Instructions: must administer with evening meal Probiotic 100 billion cell Capsule 1 cap PO DAILY Emergen-C 500 mg Tablet,Chewable 1 tab PO DAILY magnesium 250 mg tablet 500 mg PO DAILY Beet Root 2 cap PO DAILY metoprolol tartrate 25 mg Tablet 25 mg PO BID@0900,2100 Qty: 60 4RF losartan 50 mg tablet 25 mg PO DAILY Qty: 30 0RF Discharge Orders: Discharge ED (Routine); Ordered 01/30/23 Ordered By: Blayne Espinal Referrals: Anthony Jacobs MD [Primary Care Provider] - Discharge Diet: Advance as tolerated Discharge Activity: Resume usual activity Patient Instructions: Opioid Safety, Pain Management Activity Restrictions/Additional Instructions: Activity Restrictions/Additional Instructions: Thank you for choosing [facility] for your healthcare needs today. Please realize that you were seen in the Emergency Department and that we are providing you with an emergency medical screening exam and this may not be a complete and all inclusive of all the testing and or medical work-up that you may need to determine your ailment or severity of your illness. It is very important that you follow-up as instructed with your Primary care provider or Specialist for additional evaluation and to discuss your medical treatment plan. You may return to the Emergency Department should you have concerns or if your condition changes or worsens in any way. Coding Level of Care Code ED Non Garment Sewing Machine Operator for Marquita Streeter
[2023-01-30] MEDS: ketorolac 60 mg/2 mL INJ IM (02:15)
[2023-01-30] MEDS: hydrocortisone 100 mg/2 mL SDV 200 MG IM (02:15)
== END 2023-01-30 02:34 | disposition home or self-care (01) ==
PROVIDERS: Emergency Provider Internal Medicine; PCP Family Medicine
DX: M54.41 Lumbago with sciatica, right side (principal); I10 Essential (primary) hypertension
CPT/HCPCS: 96372; 99284; J1720; J1885

== ENCOUNTER 2023-02-03 16:19 | Outpatient (CLI) | payer MEDICARE, MEDICAID, SELFPAY | END 2023-02-03 16:20 | disposition home or self-care (01) | LOC: SPT 16:19 | PROVIDERS: PCP Family Medicine; Visit Provider Podiatrist Foot & Ankle Surgery | DX: Z46.89 Encounter for fitting and adjustment of other specified devices (principal); M76.829 Posterior tibial tendinitis, unspecified leg; M21.619 Bunion of unspecified foot; M21.629 Bunionette of unspecified foot; M21.40 Flat foot [pes planus] (acquired), unspecified foot | CPT/HCPCS: L3030 ==

== ENCOUNTER 2023-03-14 13:49 | Emergency (ER) | payer MEDICARE, MEDICAID, SELFPAY ==
[2023-03-14 13:57] VITALS: BP 184/102; PULSE 84; RESP 16; TEMP 36.8; O2SAT 96; BMI 46.5
--- NOTE | 2023-03-14 14:08 | ED_ITS ---
HPI - Extremity Problem General: Chief complaint: Extremity Injury, Lower Stated complaint: right hip and leg pain Time Seen by Provider: 03/14/23 14:07 History of Present Illness: 68-year-old female comes in today with c omplaints of low back and right hip pain radiating down her leg. Patient has a known arthritis to the right hip and degenerative disc disease of the back. Patient at this time is being treated at home for her chronic pain with hydrocodone 7-1/2 mg twice a day. Patient sees Dr. Jacobs for this. Patient is getting set up with pain management for further evaluation and treatment of her chronic pain. Patient reports over the last 2 to 3 days she has had difficulty sleeping due to uncontrolled pain. Patient appears nontoxic. Patient denies any falls or new injuries. Patient states I feel like they just cannot go on any longer . I addressed this comment by asking if patient felt that she was suicidal or needed further evaluation for depression and suicidal thoughts. Patient denied suicidal thoughts or homicidal thoughts. Review of Systems General: Reports: 10 or more systems reviewed and unremarkable except in HPI and below Musc: Reports: back pain, extremity pain (Right leg) and joint pain (Right hip) [facility] ED PFSH: Medical History Atrial fibrillation with RVR Hypertension Intermittent palpitations Obesity Paroxysmal atrial fibrillation Symptomatic PVCs Tachycardia Surgical History Hx of gastric bypass Gastric sleeve 2014 Hx of hysterectomy Total knee replacement status Family History Other CAD (coronary artery disease) Cancer Diabetes Stroke Social History Smoking and tobacco/nicotine status: never used tobacco/nicotine Alcohol intake: current Alcohol intake frequency: other Substance/Drug Use: never Physical Exam Const: COMMON NORMALS: alert HENMT: COMMON NORMALS: normocephalic HEAD & SCALP: normocephalic Neck/C-Spine: COMMON NORMALS: full ROM Resp: COMMON NORMALS: normal respiratory effort and clear to auscultation bilaterally AUSCULTATION: clear to auscultation bilaterally Cardio: COMMON NORMALS: regular rate and regular rhythm RATE: regular rate RHYTHM: regular rhythm Back/Pelvis: LUMBAR SPINE/LOWER BACK: No lumbar spinal tenderness and Yes paraspinal muscle tenderness Extremity: COMMON NORMALS: normal to inspection and no pedal edema Neuro: SENSORIUM/ORIENTATION: Yes alert Psych: COMMON NORMALS: speech normal, denies hallucinations and denies suicidal ideation APPEARANCE: Yes grossly normal ATTITUDE: Yes engaged ACTIVITY/MOTOR BEHAVIOR: Yes appropriate eye contact SPEECH: Yes normal speech MOOD & AFFECT: Yes depressed mood Skin: COMMON NORMALS: turgor normal GENERAL SKIN EXAM: turgor normal Course Vital Signs: Vital signs: Vital Signs Temperature 98.2 F 03/14/23 13:57 Pulse Rate 84 03/14/23 13:57 Respiratory Rate 18 03/14/23 14:22 Blood Pressure 184/102 03/14/23 13:57 Pulse Oximetry 98 03/14/23 14:22 Oxygen Delivery Me thod Room Air 03/14/23 13:57 MDM - Extremity (Nontraumatic) Medical Decision Making 68-year-old female comes in today for complaints of low back pain radiating to her right hip and right leg. Patient reports pain for the last 2 months. Patient has had evaluation performed by Dr. Jacobs and has been on hydrocodone 7 and half milligrams twice a day for control of pain. Patient reports poor control of pain. Patient reports at night her pain seems to be worse. On exam abdomen soft nontender. Patient has no edema to extremities. No redness is noted to the extremities. Pulses are intact bilateral extremities. Patient does seem tearful at times and states exacerbated comments. Patient denies suicidal thoughts though. Differential diagnosis includes but not limited to major depressive disorder, degenerative disc disease, facet arthropathy, lumbar radiculopathy, chronic pain syndrome, arthritis of the hip. Patient was given medication for pain and inflammation. Patient will go home with a muscle relaxer for occasional muscle spasms, prednisone 20 mg twice daily for the next 5 days for inflammation, and gabapentin for neuralgia. Patient will continue for routine medications otherwise as prescribed. Patient reports understanding of care plan need for follow-up or return to the ER. No radiology studies performed this visit Discharge Plan Discharge Patient Disposition: Home Clinical Impression: Right lumbar radiculitis Condition: Stable Prescriptions: New prednisone 20 mg tablet 20 mg PO BID 5 Days Qty: 10 0RF tizanidine 4 mg tablet 4 mg PO Q8H PRN (Reason: muscle spasticity) Qty: 15 0RF gabapentin 300 mg capsule 300 mg PO BID Qty: 20 0RF No Action omeprazole 20 mg tablet,delayed release (DR/EC) 20 mg PO DAILY turmeric 400 mg capsule 400 mg PO DAILY (DME) SOLE SUPPORTS See Rx Instructions .Route .MEDSUPPLY Qty: 1 0RF Rx Instructions: As directed Belsomra 10 mg tablet 10 mg PO BEDTIME Probiotic 100 billion cell Capsule 1 cap PO DAILY Emergen-C 500 mg Tablet,Chewable 1 tab PO DAILY magnesium 250 mg tablet 500 mg PO DAILY Beet Root 2 cap PO DAILY metoprolol tartrate 25 mg Tablet 25 mg PO BID@0900,2100 Qty: 60 4RF losartan 50 mg tablet 25 mg PO DAILY Qty: 30 0RF hydrocodone-acetaminophen 7.5-325 mg tablet See Rx Instructions .ROUTE .COMPLEX Rx Instructions: TAKE 1 TABLET BY MOUTH UP TO TWICE DAILY NEEDED FOR albuterol sulfate 90 mcg/actuation HFA aerosol inhaler See Rx Instructions .ROUTE .COMPLEX Rx Instructions: INHALE 2 PUFFS BY MOUTH EVERY 4 TO 6 HOURS NEEDED FOR SHORTNESS OF BREATH Xarelto 20 mg tablet 20 mg PO QPM Discharge Orders: Discharge ED (Routine); Ordered 03/14/23 Ordered By: Rober Lynn Referrals: Anthony Jacobs MD [Primary Care Provider] - Discharge Diet: Usual diet Discharge Activity: Increase activity as tolerated Patient Instructions: Lumbar Radiculopathy (ED) Activity Restrictions/Additional Instructions: Home and rest. Try to maintain activity is much as possible. Gentle stretching and range of motion exercises. Continue with normal mobility is much as possible. Follow-up with primary care for further evaluation and treatment plan for control of chronic pain. Drink plenty of water with medications. Return to ER for new concerns. Coding Level of Care Code ED Bean Sorter for Marquita Streeter
[2023-03-14 14:22] VITALS: RESP 18; O2SAT 98
[2023-03-14] MEDS: ketorolac 30 mg/mL INJ IM (14:22)
[2023-03-14] MEDS: HYDROmorphone 1 mg/mL INJ 1 mL IM (14:22)
[2023-03-14] MEDS: dexamethasone 10 mg/mL INJ IM (14:46)
== END 2023-03-14 15:39 | disposition home or self-care (01) ==
PROVIDERS: Emergency Provider Nurse Practitioner Family; PCP Family Medicine
DX: M54.16 Radiculopathy, lumbar region (principal); I10 Essential (primary) hypertension
CPT/HCPCS: 96372; 99284; J1100; J1170; J1885

== ENCOUNTER → 2023-04-05 12:58 | Outpatient (BNVA) | payer MEDICARE, MEDICAID, SELFPAY | PROVIDERS: PCP Family Medicine; Visit Provider Podiatrist Foot & Ankle Surgery | DX: M21.621 Bunionette of right foot; M21.622 Bunionette of left foot; M21.41 Flat foot [pes planus] (acquired), right foot; M21.42 Flat foot [pes planus] (acquired), left foot; M76.821 Posterior tibial tendinitis, right leg; M21.611 Bunion of right foot; M21.612 Bunion of left foot | CPT/HCPCS: 99213 ==

== ENCOUNTER → 2023-06-03 15:13 | Outpatient (BNVA) | payer MEDICARE, MEDICAID, SELFPAY | PROVIDERS: PCP Family Medicine; Visit Provider Podiatrist Foot & Ankle Surgery | DX: M21.621 Bunionette of right foot; M21.622 Bunionette of left foot; M21.41 Flat foot [pes planus] (acquired), right foot; M21.42 Flat foot [pes planus] (acquired), left foot; M72.2 Plantar fascial fibromatosis; M76.822 Posterior tibial tendinitis, left leg | CPT/HCPCS: 99213 ==

== ENCOUNTER 2023-06-19 00:53 | Emergency (ER) | payer MEDICARE, MEDICAID, SELFPAY ==
[2023-06-19 00:56] VITALS: BP 179/83; PULSE 101; RESP 15; TEMP 36.4; O2SAT 95; BMI 50.2
--- NOTE | 2023-06-19 00:58 | XRR_ITS ---
PROCEDURE INFORMATION: Exam: XR Right Foot Exam date and time: 06/19/2023 1:12 AM Age: 68 years old Clinical indication: Injury or trauma; Fall; Other: Pain; Additional info: Fall pain TECHNIQUE: Imaging protocol: Radiologic exam of the right foot. Views: 3 or more views. COMPARISON: CR (LOW EXM, ) 06/19/2023 1:10 AM FINDINGS: Bones/joints: Os navicular. No acute fracture identified. Soft tissues: Normal. XR/XR foot RT min 3V* [id number] IMPRESSION: No acute fracture identified.
--- NOTE | 2023-06-19 00:58 | XRR_ITS ---
PROCEDURE INFORMATION: Exam: XR Right Knee Exam date and time: 06/19/2023 1:07 AM Age: 68 years old Clinical indication: Injury or trauma; Fall; Other: Pain; Prior surgery; Surgery date: 6+ months; Surgery type: Knee replacement; Additional info: Fall pain TECHNIQUE: Imaging protocol: Radiologic exam of the right knee. Views: 3 views. COMPARISON: CR XR knee RT 1-2V [id number] 11/15/2018 10:46 AM FINDINGS: Bones/joints: Long stem semi constrained total right hip arthroplasty without evidence of hardware failure or loosening. Soft tissues: Normal. XR/XR knee RT 3V* [id number] IMPRESSION: Long stem semi constrained total right hip arthroplasty without evidence of hardware failure or loosening.
--- NOTE | 2023-06-19 00:58 | XRR_ITS ---
PROCEDURE INFORMATION: Exam: XR Right Ankle Exam date and time: 06/19/2023 1:10 AM Age: 68 years old Clinical indication: Injury or trauma; Fall; Other: Pain; Additional info: Fall pain TECHNIQUE: Imaging protocol: Radiologic exam of the right ankle. Views: 3 or more views. COMPARISON: CR (LOW EXM, ) 06/19/2023 1:07 AM FINDINGS: Bones/joints: Normal. Soft tissues: Normal. XR/XR ankle RT min 3V* [id number] IMPRESSION: No acute findings.
[2023-06-19 01:00] VITALS: BP 179/83; PULSE 101; RESP 15; O2SAT 95
--- NOTE | 2023-06-19 01:04 | W.ED.FALL ---
HPI - Fall General: Chief Complaint: Fall Stated Complaint: fall, leg pain Time Seen by Provider: 06/19/23 00:57 History of Present Illness: Patient presents to the ER by EMS with complaints of rolling out of her bed and falling and landing on floor. Patient is complaining of pain in her right knee, ankle, foot. Patient has no other complaints at this time. Upon arrival patient's blood pressure is 179/83 with a pulse rate of 101, patient is on Xarelto. Patient did not hit her head or lose consciousness. Review of Systems General: Reports: 10 or more systems reviewed and unremarkable except in HPI and below PFSH ED PFSH: Medical History Paroxysmal atrial fibrillation Atrial fibrillation with RVR Symptomatic PVCs Tachycardia Obesity Intermittent palpitations Hypertension Surgical History Total knee replacement status Hx of hysterectomy Hx of gastric bypass Gastric sleeve 2014 Family History Other CAD (coronary artery disease) Cancer Diabetes Stroke Social History Smoking and tobacco/nicotine status: never used tobacco/nicotine Alcohol intake: current Alcohol intake frequency: other Substance/Drug Use: never Physical Exam Const: COMMON NORMALS: no acute distress, average body habitus, patient oriented x3, no limitations, healthy appearing, alert and well nourished HENMT: COMMON NORMALS: normocephalic, atraumatic, hearing grossly normal bilaterally, external ears normal, Normal external nose present, moist oral mucous membranes and oropharynx normal HEAD & SCALP: normocephalic and atraumatic NOSE: Normal external nose present EXTERNAL EAR: Yes external ears normal Neck/C-Spine: COMMON NORMALS: no JVD Chest: COMMONS NORMALS: normal inspection of the chest and normal palpation of entire chest wall Resp: COMMON NORMALS: normal respiratory effort, No retractions, No use of accessory muscles and clear to auscultation bilaterally AUSCULTATION: clear to auscultation bilaterally Cardio: COMMON NORMALS: no JVD, regular rate, regular rhythm, S1 normal heart sound present, S2 normal heart sound present, No gallops present (Cardio), No clicks present (Cardio), No murmurs present (Cardio) and No rub (Cardio) RATE: regular rate RHYTHM: regular rhythm HEART SOUNDS: S1 normal heart sound present and S2 normal heart sound present GI: COMMON NORMALS: Normal to inspection, nondistended, normoactive bowel sounds present, Soft to palpation, non-tender, No hepatosplenomegaly present and no masses PALPATION: Yes Soft to palpation and Yes No hepatosplenomegaly present Neuro: COMMON NORMALS: patient oriented x3 SENSORIUM/ORIENTATION: Yes alert Course Vital Signs: Vital signs: Vital Signs Temperature 97.6 F 06/19/23 00:56 Pulse Rate 101 H 06/19/23 01:00 Respiratory Rate 15 06/19/23 01:00 Blood Pressure 179/83 06/19/23 01:00 Pulse Oximetry 95 06/19/23 01:00 Oxygen Delivery Me thod Room Air 06/19/23 01:00 MDM - Fall Medical Decision Making Patient had her ankle, foot, and knee x-rayed which showed no acute fractures. Patient be discharged home. Differential Diagnosis Unlikely syncope, dislocation of shoulder region, fracture of wrist, compression fracture, concussion with loss of consciousness or concussion without loss of consciousness Medical Records I reviewed the patient's medical records. Lab Data I reviewed the patient's lab results. Radiology Impressions Ankle X-Ray 06/19/23 00:58 IMPRESSION: No acute findings. Foot X-Ray 06/19/23 00:58 IMPRESSION: No acute fracture identified. Knee X-Ray 06/19/23 00:58 IMPRESSION: Long stem semi constrained total right hip arthroplasty without evidence of hardware failure or loosening. All radiology interpretation(s) finalized by discharge Discharge Plan Discharge Patient Disposition: Home Clinical Impression: Fall Condition: Stable Prescriptions: No Action omeprazole 20 mg tablet,delayed release (DR/EC) 20 mg PO DAILY turmeric 400 mg capsule 400 mg PO DAILY (DME) SOLE SUPPORTS See Rx Instructions .Route .MEDSUPPLY Qty: 1 0RF Rx Instructions: As directed alprazolam 0.5 mg tablet PO Belsomra 10 mg tablet 10 mg PO BEDTIME tramadol 50 mg tablet 50 mg PO Q12H 30 Days Qty: 60 0RF Probiotic 100 billion cell Capsule 1 cap PO DAILY Emergen-C 500 mg Tablet,Chewable 1 tab PO DAILY magnesium 250 mg tablet 500 mg PO DAILY Beet Root 2 cap PO DAILY metoprolol tartrate 25 mg Tablet 25 mg PO BID@0900,2100 Qty: 60 4RF losartan 50 mg tablet 25 mg PO DAILY Qty: 30 0RF hydrocodone-acetaminophen 7.5-325 mg tablet See Rx Instructions .ROUTE .COMPLEX Rx Instructions: TAKE 1 TABLET BY MOUTH UP TO TWICE DAILY NEEDED FOR albuterol sulfate 90 mcg/actuation HFA aerosol inhaler See Rx Instructions .ROUTE .COMPLEX Rx Instructions: INHALE 2 PUFFS BY MOUTH EVERY 4 TO 6 HOURS NEEDED FOR SHORTNESS OF BREATH tizanidine 4 mg tablet 4 mg PO Q8H PRN (Reason: muscle spasticity) Qty: 15 0RF gabapentin 300 mg capsule 300 mg PO BID Qty: 20 0RF Xarelto 20 mg tablet 20 mg PO QPM Discharge Orders: Discharge ED (Routine); Ordered 06/19/23 Ordered By: Sal Randolph Referrals: Anthony Jacobs MD [Primary Care Provider] - 1 week Patient Instructions: Musculoskeletal Pain (ED), Fall Prevention (ED) Activity Restrictions/Additional Instructions: Your x-rays did not show any acute fractures. It is felt that you just have musculoskeletal pain from the fall. Please continue [id number] Tylenol and Motrin as needed for pain. Please follow-up with your family practice physician within the next 7 days for further evaluation and treatment. Coding Level of Care Code ED Acoustical Logging Engineer for Marquita Streeter
[2023-06-19] MEDS: HYDROcodone-acetaminophen 5-325 mg Tablet 1 TAB PO (02:09)
[2023-06-19 02:16] VITALS: BP 155/75; PULSE 83; RESP 18; O2SAT 94
== END 2023-06-19 02:11 | disposition home or self-care (01) ==
PROVIDERS: Emergency Provider Emergency Medicine; PCP Family Medicine
DX: M79.604 Pain in right leg (principal); I10 Essential (primary) hypertension; W06.XXXA Fall from bed, initial encounter; Z96.641 Presence of right artificial hip joint
CPT/HCPCS: 73562; 73610; 73630; 99284

== ENCOUNTER 2023-06-21 11:55 | Outpatient (RCR) | payer MEDICARE, MEDICAID, SELFPAY | END 2023-07-16 23:59 | disposition home or self-care (01) | LOC: SPT 11:55 | PROVIDERS: PCP Family Medicine; Visit Provider Podiatrist Foot & Ankle Surgery | DX: M72.2 Plantar fascial fibromatosis (principal); M76.821 Posterior tibial tendinitis, right leg | CPT/HCPCS: 97035; 97140; 97161 ==

== ENCOUNTER 2023-07-17 06:00 | Outpatient (RCR) | payer MEDICARE, MEDICAID, SELFPAY | END 2023-08-15 23:59 | disposition home or self-care (01) | LOC: SPT 06:00 | PROVIDERS: PCP Family Medicine; Visit Provider Podiatrist Foot & Ankle Surgery | DX: M72.2 Plantar fascial fibromatosis (principal); M76.821 Posterior tibial tendinitis, right leg | CPT/HCPCS: 97035; 97140 ==

== ENCOUNTER → 2023-08-03 14:12 | Outpatient (BNVA) | payer MEDICARE, MEDICAID, SELFPAY | PROVIDERS: PCP Family Medicine; Visit Provider Podiatrist Foot & Ankle Surgery | DX: M21.621 Bunionette of right foot; M21.622 Bunionette of left foot; M21.41 Flat foot [pes planus] (acquired), right foot; M21.42 Flat foot [pes planus] (acquired), left foot; M72.2 Plantar fascial fibromatosis; M76.822 Posterior tibial tendinitis, left leg; M21.612 Bunion of left foot; M21.611 Bunion of right foot | CPT/HCPCS: 99213 ==

== ENCOUNTER → 2023-08-10 14:14 | Outpatient (BNVA) | payer MEDICARE, MEDICAID, SELFPAY | PROVIDERS: PCP Family Medicine; Visit Provider Specialist | DX: R20.0 Anesthesia of skin (principal); R20.2 Paresthesia of skin; G56.03 Carpal tunnel syndrome, bilateral upper limbs | CPT/HCPCS: 95886; 95910; 95912 ==

== ENCOUNTER 2023-08-16 06:00 | Outpatient (RCR) | payer MEDICARE, MEDICAID, SELFPAY | END 2023-09-15 23:59 | disposition home or self-care (01) | LOC: SPT 06:00 | PROVIDERS: PCP Family Medicine; Visit Provider Podiatrist Foot & Ankle Surgery | DX: M72.2 Plantar fascial fibromatosis (principal); M76.821 Posterior tibial tendinitis, right leg | CPT/HCPCS: 97035; 97140 ==

== ENCOUNTER 2023-09-16 06:00 | Outpatient (RCR) | payer MEDICARE, MEDICAID, SELFPAY | END 2023-10-16 23:59 | disposition home or self-care (01) | LOC: SPT 06:00 | PROVIDERS: PCP Family Medicine; Visit Provider Podiatrist Foot & Ankle Surgery | DX: M72.2 Plantar fascial fibromatosis (principal); M76.821 Posterior tibial tendinitis, right leg | CPT/HCPCS: 97035; 97140 ==

== ENCOUNTER 2023-09-28 00:12 | Emergency (ER) | payer MEDICARE, MEDICAID, SELFPAY ==
[2023-09-28 00:13] VITALS: BP 150/97; PULSE 91; RESP 18; TEMP 36.6; O2SAT 95; BMI 38.2
--- NOTE | 2023-09-28 00:16 | XRR_ITS ---
PROCEDURE INFORMATION: Exam: XR Left Knee Exam date and time: 09/28/2023 12:26 AM Age: 68 years old Clinical indication: Pain and injury or trauma; Fall; Sprain or strain; Lower leg; Prior surgery; Surgery date: 6+ months; Surgery type: Left knee replacement; Patient HX: Best images poss due to patinets lrom; Additional info: Fall, knee pain TECHNIQUE: Imaging protocol: Radiologic exam of the left knee. Views: 3 views. COMPARISON: No relevant prior studies available. FINDINGS: Bones/joints: Subjective bony demineralization. Tricompartmental knee prosthesis is in satisfactory position. No visible fracture. No large joint effusion. Lateral views are somewhat suboptimal because of difficulty with patient positioning. Small joint effusion cannot be entirely excluded. Soft tissues: Normal. XR/XR knee LT 3V* [id number] IMPRESSION: 1. No evidence of acute fracture. No large joint effusion. 2. Subjective bony demineralization could be quantified with DEXA.
--- NOTE | 2023-09-28 00:26 | W.ED.EXTPRO ---
HPI - Extremity Problem General: Chief complaint: Extremity Injury, Lower Stated complaint: keft knee pain Time Seen by Provider: 09/28/23 00:13 History of Present Illness: 68-year-old female with a history of A-fib on Xarelto, hypertension and obesity who presents to the emergency room after she fell out of bed and could not get up because of left knee pain. She is complaining of severe left knee pain. No obvious deformity. She also complains of some mild left forearm pain. There is mild bruising there. No deformity. She has good movement there. No head injury. No neck pain. No nausea or vomiting. No altered mental status. No focal motor deficits. No chest pain. No shortness of breath. No abdominal pain. Related Data Home Medications Medication Instructions Recorded Confirmed Lactobacillus 40-Bifidobact 1 cap PO DAILY 05/30/19 08/10/23 3-S.thermophilus 100 billion cell capsule (Probiotic) vitamin C 500 mg-multivitamin with 1 tab PO DAILY 05/30/19 08/10/23 minerals chewable tablet (Emergen-C) omeprazole 20 mg tablet,delayed 20 mg PO DAILY 01/16/20 08/10/23 release turmeric 400 mg capsule 400 mg PO DAILY 08/27/20 08/10/23 Beet Root 2 cap PO DAILY 05/14/22 08/10/23 magnesium 250 mg tablet 500 mg PO DAILY 08/04/22 08/10/23 suvorexant 10 mg tablet (Belsomra) 10 mg PO BEDTIME 08/04/22 08/10/23 albuterol sulfate 90 mcg/actuation See Rx Instructions .Route .COMPLEX 03/14/23 08/10/23 aerosol inhaler hydrocodone 7.5 mg-acetaminophen See Rx Instructions .Route .COMPLEX 03/14/23 08/10/23 325 mg tablet alprazolam 0.5 mg tablet mg PO 06/03/23 08/10/23 Previous Rx's Medication Instructions Recorded losartan 50 mg tablet 25 mg (1/2 x 50 mg) PO DAILY #30 05/15/22 tabs metoprolol tartrate 25 mg tablet 25 mg PO BID@0900,2100 #60 tabs 05/15/22 SOLE SUPPORTS #1 ea 01/05/23 gabapentin 300 mg capsule 300 mg PO BID #20 caps 03/14/23 tizanidine 4 mg tablet 4 mg PO Q8H PRN muscle spasticity 03/14/23 #15 tabs rivaroxaban 20 mg tablet (Xarelto) 20 mg PO QPM #90 tabs 08/05/23 acetaminophen 500 mg tablet 500 mg PO DAILY fever 30 days #60 09/08/23 tabs tramadol 50 mg tablet 50 mg PO Q12H 30 days #60 tabs 09/23/23 Allergies Allergy/AdvReac Type Severity Reaction Status Date / Time Sulfa (Sulfonamide Allergy Intermediate hives Verified 08/10/23 18:05 Antibiotics) morphine Allergy Unknown Verified 08/10/23 18:05 NSAIDS (Non-Steroidal Allergy Unknown Verified 08/10/23 18:05 Anti-Inflamma tetracycline Allergy ALGY-Anaphy Verified 08/10/23 18:05 laxis methylprednisolone AdvReac Unknown Verified 08/10/23 18:05 [From Medrol] Review of Systems Narrative: Constitutional symptoms: Negative except as documented in HPI. Skin symptoms: Negative except as documented in HPI. Eye symptoms: Negative except as documented in HPI. ENMT symptoms: Negative except as documented in HPI. Respiratory symptoms: Negative except as documented in HPI. Cardiovascular symptoms: Negative except as documented in HPI. Gastrointestinal symptoms: Negative except as documented in HPI. Genitourinary symptoms: Negative except as documented in HPI. Musculoskeletal symptoms: Negative except as documented in HPI. Neurologic symptoms: Negative except as documented in HPI. Psychiatric symptoms: Negative except as documented in HPI. Endocrine symptoms: Negative except as documented in HPI. PFSH ED PFSH: Medical History Paroxysmal atrial fibrillation Atrial fibrillation with RVR Symptomatic PVCs Tachycardia Obesity Intermittent palpitations Hypertension Surgical History Total knee replacement status Hx of hysterectomy Hx of gastric bypass Gastric sleeve 2014 Family History Other CAD (coronary artery disease) Cancer Diabetes Stroke Social History Smoking and tobacco/nicotine status: never used tobacco/nicotine Alcohol intake: current Alcohol intake frequency: other Substance/Drug Use: never Physical Exam Narrative: EXAM NARRATIVE: General: Alert, no acute distress. Skin: Warm, dry. Head: Normocephalic, atraumatic. Neck: Supple, trachea midline. Eye: Extraocular movements are intact. Ears, nose, mouth and throat: mucosa moist. Cardiovascular: Regular, Normal peripheral perfusion. Respiratory: Lungs are clear to auscultation, respirations are non-labored, breath sounds are equal, Symmetrical chest wall expansion. Gastrointestinal: Soft, Nontender, Non distended Musculoskeletal: No obvious deformity. Some bruising of the left wrist. She has severe pain with any movement of her left knee. Difficult to examine secondary to body habitus. She is neurovascularly intact distal to the injuries. Neurological: Alert and oriented, No focal neurological deficit observed. Psychiatric: Cooperative, appropriate mood & affect. Course Vital Signs: Vital signs: Vital Signs Temperature 97.9 F 09/28/23 00:13 Pulse Rate 91 09/28/23 00:13 Respiratory Rate 18 09/28/23 00:13 Blood Pressure 150/97 09/28/23 00:13 Pulse Oximetry 95 09/28/23 00:13 Oxygen Delivery Me thod Room Air 09/28/23 00:13 MDM - Extremity (Nontraumatic) Medical Decision Making X-ray of the left knee: Knee prosthesis is in place. No evidence of periprosthetic fractures or dislocation. This was reviewed and interpreted by myself the emergency room physician. Assessment and plan: Knee injury ? IV Dilaudid and Zofran in the emergency room. - Discharged home - Discussed plan with patient. Answered any questions. - Evaluation and treatment of this problem were appropriate in the emergency setting. XR interpretation done by ED provider, pending radiology final review Discharge Plan Discharge Patient Disposition: Home Clinical Impression: Injury of knee, left Condition: Stable Prescriptions: No Action omeprazole 20 mg tablet,delayed release (DR/EC) 20 mg PO DAILY turmeric 400 mg capsule 400 mg PO DAILY (DME) SOLE SUPPORTS See Rx Instructions .Route .MEDSUPPLY Qty: 1 0RF Rx Instructions: As directed alprazolam 0.5 mg tablet PO Belsomra 10 mg tablet 10 mg PO BEDTIME Xarelto 20 mg tablet 20 mg PO QPM Qty: 90 1RF acetaminophen 500 mg tablet 500 mg PO DAILY 30 Days Qty: 60 3RF tramadol 50 mg tablet 50 mg PO Q12H 30 Days Qty: 60 0RF Probiotic 100 billion cell Capsule 1 cap PO DAILY Emergen-C 500 mg Tablet,Chewable 1 tab PO DAILY magnesium 250 mg tablet 500 mg PO DAILY Beet Root 2 cap PO DAILY metoprolol tartrate 25 mg Tablet 25 mg PO BID@0900,2100 Qty: 60 4RF losartan 50 mg tablet 25 mg PO DAILY Qty: 30 0RF hydrocodone-acetaminophen 7.5-325 mg tablet See Rx Instructions .ROUTE .COMPLEX Rx Instructions: TAKE 1 TABLET BY MOUTH UP TO TWICE DAILY NEEDED FOR albuterol sulfate 90 mcg/actuation HFA aerosol inhaler See Rx Instructions .ROUTE .COMPLEX Rx Instructions: INHALE 2 PUFFS BY MOUTH EVERY 4 TO 6 HOURS NEEDED FOR SHORTNESS OF BREATH tizanidine 4 mg tablet 4 mg PO Q8H PRN (Reason: muscle spasticity) Qty: 15 0RF gabapentin 300 mg capsule 300 mg PO BID Qty: 20 0RF Discharge Orders: Discharge ED (Routine); Ordered 09/28/23 Ordered By: Mer Lou Referrals: Anthony Jacobs MD [Primary Care Provider] - Discharge Diet: Usual diet Discharge Activity: Increase activity as tolerated Patient Instructions: Opioid Safety, Pain Management Activity Restrictions/Additional Instructions: Thank you for choosing [facility] for your healthcare needs today. Please realize this is an emergency room and that we are providing you with a medical screening exam and this may not be complete and all inclusive of all the testing and or work up that you may need to determine your ailment or severity of your illness. You have been screened and evaluated and felt safe for discharge. Health conditions do change or evolve sometimes and as such it is important that you follow up with your Primary Doctor to be re checked, 3-5 days is a general good time frame for follow up. You are always welcome to return to the ED for re assessment if your symptoms are worsening or you have new concerns Coding Level of Care Code ED Collar Cutter for Marquita Streeter
[2023-09-28] MEDS: HYDROmorphone 1 mg/mL INJ 1 mL 0.5 MG IVP (00:38)
[2023-09-28 01:00] VITALS: BP 155/79; PULSE 79; RESP 16; O2SAT 96
== END 2023-09-28 01:15 | disposition home or self-care (01) ==
PROVIDERS: Emergency Provider Emergency Medicine; PCP Family Medicine
DX: S89.92XA Unspecified injury of left lower leg, initial encounter (principal); I10 Essential (primary) hypertension; Z96.652 Presence of left artificial knee joint; W06.XXXA Fall from bed, initial encounter
CPT/HCPCS: 73562; 96374; 99284; J1170

== ENCOUNTER → 2023-09-29 13:49 | Outpatient (BNVA) | payer MEDICARE, MEDICAID, SELFPAY | PROVIDERS: PCP Family Medicine; Visit Provider Podiatrist Foot & Ankle Surgery | DX: M76.822 Posterior tibial tendinitis, left leg (principal); M21.612 Bunion of left foot; M21.622 Bunionette of left foot; M21.42 Flat foot [pes planus] (acquired), left foot | CPT/HCPCS: 99213 ==

== ENCOUNTER 2023-10-17 06:00 | Outpatient (RCR) | payer MEDICARE, MEDICAID, SELFPAY | END 2023-11-15 23:59 | disposition home or self-care (01) | LOC: SPT 06:00 | PROVIDERS: PCP Family Medicine; Visit Provider Podiatrist Foot & Ankle Surgery | DX: M72.2 Plantar fascial fibromatosis (principal); M76.821 Posterior tibial tendinitis, right leg; M25.571 Pain in right ankle and joints of right foot; R26.89 Other abnormalities of gait and mobility | CPT/HCPCS: 97035; 97140 ==

== ENCOUNTER 2023-10-26 15:45 | Outpatient (CLI) | payer MEDICARE, MEDICAID, SELFPAY ==
--- NOTE | 2023-10-26 15:47 | XRR_ITS ---
PROCEDURE INFORMATION: Exam: XR Left Foot Exam date and time: 10/26/2023 3:53 PM Age: 68 years old Clinical indication: Pain; Foot; Left; Additional info: M79.672 - pain in left foot TECHNIQUE: Imaging protocol: Radiologic exam of the left foot. Views: 3 or more views. COMPARISON: MR foot LT wo con* [id number] 12/16/2021 4:27 PM FINDINGS: Bones/joints: There is hallux valgus and metatarsus adductus. There are severe degenerative changes at the 1st MTP joint. There are severe degenerative changes at the tarsometatarsal joints especially at the base of the 2nd and 3rd metatarsals. There is a very large os navicularis. There is calcaneal enthesopathy. No acute fracture or dislocation. Soft tissues: There is mild soft tissue edema along the medial midfoot. XR/XR foot LT min 3V* [id number] IMPRESSION: No acute fracture or dislocation. Severe degenerative changes are noted.
== END 2023-10-26 15:46 | disposition home or self-care (01) ==
LOC: RAD 15:46
PROVIDERS: PCP Family Medicine; Visit Provider Podiatrist Foot & Ankle Surgery
DX: M79.672 Pain in left foot (principal)
CPT/HCPCS: 73630

== ENCOUNTER 2023-11-08 23:43 | Emergency (ER) | payer MEDICARE, MEDICAID, SELFPAY ==
[2023-11-08 23:49] VITALS: BP 155/88; PULSE 79; RESP 18; TEMP 36.6; O2SAT 97
--- NOTE | 2023-11-09 00:25 | ED_ITS ---
HPI - Extremity Problem General: Chief complaint: Extremity Problem,Nontraumatic Stated complaint: Left Foot Pain Time Seen by Provider: 11/08/23 23:46 History of Present Illness: Patient presents to the ER with burning over the left foot pain for the past few months. She also has had several falls where she came in and had imaging and foot done. She says Dr. Deutsch is working on her foot currently. Patient is on gabapentin for nerve pain also took tramadol and Tylenol which she says so far none of these really helped. Patient is here for pain control. Related Data Home Medications Medication Instructions Recorded Confirmed Lactobacillus 40-Bifidobact 1 cap PO DAILY 05/30/19 09/29/23 3-S.thermophilus 100 billion cell capsule (Probiotic) vitamin C 500 mg-multivitamin with 1 tab PO DAILY 05/30/19 09/29/23 minerals chewable tablet (Emergen-C) omeprazole 20 mg tablet,delayed 20 mg PO DAILY 01/16/20 09/29/23 release turmeric 400 mg capsule 400 mg PO DAILY 08/27/20 09/29/23 Beet Root 2 cap PO DAILY 05/14/22 09/29/23 magnesium 250 mg tablet 500 mg PO DAILY 08/04/22 09/29/23 suvorexant 10 mg tablet (Belsomra) 10 mg PO BEDTIME 08/04/22 09/29/23 albuterol sulfate 90 mcg/actuation See Rx Instructions .Route .COMPLEX 03/14/23 09/29/23 aerosol inhaler hydrocodone 7.5 mg-acetaminophen See Rx Instructions .Route .COMPLEX 03/14/23 09/29/23 325 mg tablet alprazolam 0.5 mg tablet mg PO 06/03/23 09/29/23 Previous Rx's Medication Instructions Recorded losartan 50 mg tablet 25 mg (1/2 x 50 mg) PO DAILY #30 05/15/22 tabs metoprolol tartrate 25 mg tablet 25 mg PO BID@0900,2100 #60 tabs 05/15/22 SOLE SUPPORTS #1 ea 01/05/23 gabapentin 300 mg capsule 300 mg PO BID #20 caps 03/14/23 tizanidine 4 mg tablet 4 mg PO Q8H PRN muscle spasticity 03/14/23 #15 tabs rivaroxaban 20 mg tablet (Xarelto) 20 mg PO QPM #90 tabs 08/05/23 acetaminophen 500 mg tablet 500 mg PO DAILY fever 30 days #60 09/08/23 tabs tramadol 50 mg tablet 50 mg PO Q12H 30 days #60 tabs 10/25/23 oxycodone-acetaminophen 5 mg-325 1 tab PO Q8H PRN Severe pain #14 11/09/23 mg tablet (Percocet) tabs Allergies Allergy/AdvReac Type Severity Reaction Status Date / Time Sulfa (Sulfonamide Allergy Intermediate hives Verified 11/08/23 23:56 Antibiotics) morphine Allergy Unknown Verified 11/08/23 23:56 NSAIDS (Non-Steroidal Allergy Unknown Verified 11/08/23 23:56 Anti-Inflamma tetracycline Allergy ALGY-Anaphy Verified 11/08/23 23:56 laxis methylprednisolone AdvReac Unknown Verified 11/08/23 23:56 [From Medrol] Review of Systems General: Reports: 10 or more systems reviewed and unremarkable except in HPI and below PFSH ED PFSH: Medical History Paroxysmal atrial fibrillation Atrial fibrillation with RVR Symptomatic PVCs Tachycardia Obesity Intermittent palpitations Hypertension Surgical History Total knee replacement status Hx of hysterectomy Hx of gastric bypass Gastric sleeve 2014 Family History Other CAD (coronary artery disease) Cancer Diabetes Stroke Social History Smoking and tobacco/nicotine status: never used tobacco/nicotine Alcohol intake: current Alcohol intake frequency: other Substance/Drug Use: never Physical Exam Const: COMMON NORMALS: no acute distress, average body habitus, patient oriented x3, no limitations, healthy appearing, alert and well nourished HENMT: COMMON NORMALS: normocephalic, atraumatic, hearing grossly normal bilaterally, external ears normal, Normal external nose present and moist oral mucous membranes HEAD & SCALP: normocephalic and atraumatic NOSE: Normal external nose present EXTERNAL EAR: Yes external ears normal Neck/C-Spine: COMMON NORMALS: no JVD Chest: COMMONS NORMALS: normal inspection of the chest and normal palpation of entire chest wall Resp: COMMON NORMALS: normal respiratory effort, No retractions, No use of accessory muscles and clear to auscultation bilaterally AUSCULTATION: clear to auscultation bilaterally Cardio: COMMON NORMALS: no JVD, regular rate, regular rhythm, S1 normal heart sound present, S2 normal heart sound present, No gallops present (Cardio), No clicks present (Cardio), No murmurs present (Cardio) and No rub (Cardio) RATE: regular rate RHYTHM: regular rhythm HEART SOUNDS: S1 normal heart sound present and S2 normal heart sound present GI: COMMON NORMALS: Normal to inspection, nondistended, normoactive bowel sounds present, Soft to palpation, non-tender, No hepatosplenomegaly present and no masses PALPATION: Yes Soft to palpation and Yes No hepatosplenomegaly present Neuro: COMMON NORMALS: patient oriented x3 SENSORIUM/ORIENTATION: Yes alert Course Vital Signs: Vital signs: Vital Signs Temperature 97.9 F 11/08/23 23:49 Pulse Rate 87 11/09/23 01:53 Respiratory Rate 18 11/09/23 01:53 Blood Pressure 152/74 11/09/23 01:53 Pulse Oximetry 97 11/09/23 01:53 Oxygen Delivery Me thod Room Air 11/09/23 01:53 MDM - Extremity (Nontraumatic) Medical Decision Making Patient was given 300 mg of gabapentin which did not help the pain much and she was given 5 mg of Percocet which she said helped her pain a lot. Patient will have a small prescription of Percocet sent to the pharmacy. Patient should follow-up with Dr. Deutsch when he is back in his office. Medical Records I reviewed the patient's medical records. Lab Data I reviewed the patient's lab results. No radiology studies performed this visit Discharge Plan Discharge Patient Disposition: Home Clinical Impression: Chronic foot pain Condition: Stable Prescriptions: New Percocet 5-325 mg tablet 1 tab PO Q8H PRN (Reason: Severe pain) Qty: 14 0RF No Action omeprazole 20 mg tablet,delayed release (DR/EC) 20 mg PO DAILY turmeric 400 mg capsule 400 mg PO DAILY (DME) SOLE SUPPORTS See Rx Instructions .Route .MEDSUPPLY Qty: 1 0RF Rx Instructions: As directed alprazolam 0.5 mg tablet PO Belsomra 10 mg tablet 10 mg PO BEDTIME Xarelto 20 mg tablet 20 mg PO QPM Qty: 90 1RF acetaminophen 500 mg tablet 500 mg PO DAILY 30 Days Qty: 60 3RF tramadol 50 mg tablet 50 mg PO Q12H 30 Days Qty: 60 0RF Probiotic 100 billion cell Capsule 1 cap PO DAILY Emergen-C 500 mg Tablet,Chewable 1 tab PO DAILY magnesium 250 mg tablet 500 mg PO DAILY Beet Root 2 cap PO DAILY metoprolol tartrate 25 mg Tablet 25 mg PO BID@0900,2100 Qty: 60 4RF losartan 50 mg tablet 25 mg PO DAILY Qty: 30 0RF hydrocodone-acetaminophen 7.5-325 mg tablet See Rx Instructions .ROUTE .COMPLEX Rx Instructions: TAKE 1 TABLET BY MOUTH UP TO TWICE DAILY NEEDED FOR albuterol sulfate 90 mcg/actuation HFA aerosol inhaler See Rx Instructions .ROUTE .COMPLEX Rx Instructions: INHALE 2 PUFFS BY MOUTH EVERY 4 TO 6 HOURS NEEDED FOR SHORTNESS OF BREATH tizanidine 4 mg tablet 4 mg PO Q8H PRN (Reason: muscle spasticity) Qty: 15 0RF gabapentin 300 mg capsule 300 mg PO BID Qty: 20 0RF Discharge Orders: Discharge ED (Routine); Ordered 11/09/23 Ordered By: Sal Randolph Referrals: Anthony Jacobs MD [Primary Care Provider] - 1 week Patient Instructions: Opioid Safety, Pain Management Activity Restrictions/Additional Instructions: You have been prescribed a small dose of Percocet for your severe pain. Please pick these up at the pharmacy and take these as directed. Please follow-up with Dr. Deutsch when he gets back in the office. Coding Level of Care Code ED Broke Beater Machine Operator for Marquita Streeter
[2023-11-09] MEDS: gabapentin 300 mg Capsule PO (00:49)
[2023-11-09 01:52] VITALS: RESP 18; O2SAT 97
[2023-11-09] MEDS: oxyCODONE-APAP 5-325 mg Tablet 1 TAB PO (01:52)
[2023-11-09 01:53] VITALS: BP 152/74; PULSE 87; RESP 18; O2SAT 97
[2023-11-09 02:55] VITALS: BP 145/76; PULSE 88; RESP 16; O2SAT 92
== END 2023-11-09 02:56 | disposition home or self-care (01) ==
PROVIDERS: Emergency Provider Emergency Medicine; PCP Family Medicine
DX: G89.29 Other chronic pain (principal); M79.672 Pain in left foot; I10 Essential (primary) hypertension
CPT/HCPCS: 99283

== ENCOUNTER 2023-11-16 06:00 | Outpatient (RCR) | payer MEDICARE, MEDICAID, SELFPAY | END 2023-12-07 23:59 | disposition home or self-care (01) | LOC: SPT 06:00 | PROVIDERS: PCP Family Medicine; Visit Provider Podiatrist Foot & Ankle Surgery | DX: M76.821 Posterior tibial tendinitis, right leg (principal); M72.2 Plantar fascial fibromatosis; M25.571 Pain in right ankle and joints of right foot; R26.89 Other abnormalities of gait and mobility | CPT/HCPCS: 99214 ==

== ENCOUNTER → 2023-11-22 07:20 | Outpatient (BNVA) | payer MEDICARE, MEDICAID, SELFPAY | PROVIDERS: PCP Family Medicine; Visit Provider Podiatrist Foot & Ankle Surgery | DX: M76.822 Posterior tibial tendinitis, left leg; M21.42 Flat foot [pes planus] (acquired), left foot; M21.41 Flat foot [pes planus] (acquired), right foot; M21.612 Bunion of left foot; M21.611 Bunion of right foot; M21.622 Bunionette of left foot; M21.621 Bunionette of right foot | CPT/HCPCS: 99213 ==

== ENCOUNTER 2023-11-30 22:36 | Emergency (ER) | payer MEDICARE, MEDICAID, SELFPAY ==
--- NOTE | 2023-11-30 22:41 | XRR_ITS ---
PROCEDURE INFORMATION: Exam: XR Left Foot Exam date and time: 11/30/2023 11:42 PM Age: 68 years old Clinical indication: Pain; Foot; Left; Additional info: Injury TECHNIQUE: Imaging protocol: Radiologic exam of the left foot. Views: 3 or more views. COMPARISON: CR XR foot LT min 3V* [id number] 10/26/2023 3:53 PM FINDINGS: Bones/joints: Hallux valgus and metatarsus primus varus with prominent bunion, unchanged. Moderate great toe metatarsophalangeal and 2nd through 3rd toe tarsometatarsal joint space narrowing. Multifocal mild-moderate interphalangeal joint space narrowing. No acute fracture or dislocation. Osseous demineralization. Os navicular noted. Soft tissues: Soft tissues are unremarkable. XR/XR foot LT min 3V* [id number] IMPRESSION: No acute osseous abnormality. Unchanged chronic findings as above.
[2023-11-30 22:46] VITALS: BP 172/94; PULSE 88; RESP 22; TEMP 36.1; O2SAT 95; BMI 49.9
[2023-11-30] MEDS: HYDROcodone-acetaminophen 10-325 mg Tablet 1 TAB PO (23:34)
[2023-11-30 23:35] VITALS: BP 157/85; PULSE 86; O2SAT 98
--- NOTE | 2023-11-30 23:44 | W.ED.EXTPRO ---
HPI - Extremity Problem General: Chief complaint: Extremity Injury, Lower Stated complaint: left foot pain Time Seen by Provider: 11/30/23 22:43 History of Present Illness: 68-year-old with history of foot problems who has been following with Dr. Deutsch with podiatry for a bunion who is planning on an MRI tomorrow who injured her foot. She ran into a piece of furniture. No obvious deformity. No redness. She said the pain is worse in she needs something for the pain. Also an x-ray has been ordered. Related Data Home Medications Medication Instructions Recorded Confirmed Lactobacillus 40-Bifidobact 1 cap PO DAILY 05/30/19 11/22/23 3-S.thermophilus 100 billion cell capsule (Probiotic) vitamin C 500 mg-multivitamin with 1 tab PO DAILY 05/30/19 11/22/23 minerals chewable tablet (Emergen-C) omeprazole 20 mg tablet,delayed 20 mg PO DAILY 01/16/20 11/22/23 release turmeric 400 mg capsule 400 mg PO DAILY 08/27/20 11/22/23 Beet Root 2 cap PO DAILY 05/14/22 11/22/23 magnesium 250 mg tablet 500 mg PO DAILY 08/04/22 11/22/23 suvorexant 10 mg tablet (Belsomra) 10 mg PO BEDTIME 08/04/22 11/22/23 albuterol sulfate 90 mcg/actuation See Rx Instructions .Route .COMPLEX 03/14/23 11/22/23 aerosol inhaler hydrocodone 7.5 mg-acetaminophen See Rx Instructions .Route .COMPLEX 03/14/23 11/22/23 325 mg tablet alprazolam 0.5 mg tablet mg PO 06/03/23 11/22/23 Previous Rx's Medication Instructions Recorded metoprolol tartrate 25 mg tablet 25 mg PO BID@0900,2100 #60 tabs 05/15/22 SOLE SUPPORTS #1 ea 01/05/23 gabapentin 300 mg capsule 300 mg PO BID #20 caps 03/14/23 tizanidine 4 mg tablet 4 mg PO Q8H PRN muscle spasticity 03/14/23 #15 tabs rivaroxaban 20 mg tablet (Xarelto) 20 mg PO QPM #90 tabs 08/05/23 acetaminophen 500 mg tablet 500 mg PO DAILY fever 30 days #60 09/08/23 tabs oxycodone-acetaminophen 5 mg-325 1 tab PO Q8H PRN Severe pain #14 11/09/23 mg tablet (Percocet) tabs losartan 50 mg tablet 50 mg PO DAILY #90 tabs 11/16/23 tramadol 50 mg tablet 50 mg PO Q12H 30 days #60 tabs 11/25/23 Allergies Allergy/AdvReac Type Severity Reaction Status Date / Time Sulfa (Sulfonamide Allergy Intermediate hives Verified 11/22/23 06:39 Antibiotics) morphine Allergy Unknown Verified 11/22/23 06:39 NSAIDS (Non-Steroidal Allergy Unknown Verified 11/22/23 06:39 Anti-Inflamma tetracycline Allergy ALGY-Anaphy Verified 11/22/23 06:39 laxis methylprednisolone AdvReac Unknown Verified 11/22/23 06:39 [From Medrol] Review of Systems Narrative: Constitutional symptoms: Negative except as documented in HPI. Skin symptoms: Negative except as documented in HPI. Eye symptoms: Negative except as documented in HPI. ENMT symptoms: Negative except as documented in HPI. Respiratory symptoms: Negative except as documented in HPI. Cardiovascular symptoms: Negative except as documented in HPI. Gastrointestinal symptoms: Negative except as documented in HPI. Genitourinary symptoms: Negative except as documented in HPI. Musculoskeletal symptoms: Negative except as documented in HPI. Neurologic symptoms: Negative except as documented in HPI. Psychiatric symptoms: Negative except as documented in HPI. Endocrine symptoms: Negative except as documented in HPI. PFSH ED PFSH: Medical History Paroxysmal atrial fibrillation Atrial fibrillation with RVR Symptomatic PVCs Tachycardia Obesity Intermittent palpitations Hypertension Surgical History Total knee replacement status Hx of hysterectomy Hx of gastric bypass Gastric sleeve 2014 Family History Other CAD (coronary artery disease) Cancer Diabetes Stroke Social History Smoking and tobacco/nicotine status: former use of tobacco/nicotine Alcohol intake: current Alcohol intake frequency: other Substance/Drug Use: never Physical Exam Narrative: EXAM NARRATIVE: General: Alert, no acute distress. Skin: warm and dry Head: Normocephalic Neck: Trachea midline Eye: Extraocular movements are intact. Ears, nose, mouth and throat: Oral mucosa moist Respiratory: Respirations are non-labored Musculoskeletal: Normal ROM. Pain on the left foot. No obvious deformity or redness Neurological: Alert and oriented, No focal neurological deficit observed. Psychiatric: Cooperative, appropriate mood & affect. Course Vital Signs: Vital signs: Vital Signs Temperature 97.0 F L 11/30/23 22:46 Pulse Rate 86 11/30/23 23:35 Respiratory Rate 22 H 11/30/23 22:46 Blood Pressure 157/85 11/30/23 23:35 Pulse Oximetry 98 11/30/23 23:35 Oxygen Delivery Me thod Room Air 11/30/23 22:46 MDM - Extremity (Nontraumatic) Medical Decision Making X-ray of the foot shows chronic changes but no acute fractures. I compared this to previous films. Films were interpreted by myself the emergency room provider and pending final radiology review. Assessment and plan: Foot injury Chronic foot pain ?Freeman here in the emergency room and to for home for tonight. - Discharged home - Discussed plan with patient. Answered any questions. - Evaluation and treatment of this problem were appropriate in the emergency setting. XR interpretation done by ED provider, pending radiology final review Discharge Plan Discharge Patient Disposition: Home Clinical Impression: Foot injury Condition: Stable Prescriptions: No Action omeprazole 20 mg tablet,delayed release (DR/EC) 20 mg PO DAILY turmeric 400 mg capsule 400 mg PO DAILY (DME) SOLE SUPPORTS See Rx Instructions .Route .MEDSUPPLY Qty: 1 0RF Rx Instructions: As directed alprazolam 0.5 mg tablet PO losartan 50 mg tablet 50 mg PO DAILY Qty: 90 3RF Belsomra 10 mg tablet 10 mg PO BEDTIME Xarelto 20 mg tablet 20 mg PO QPM Qty: 90 1RF acetaminophen 500 mg tablet 500 mg PO DAILY 30 Days Qty: 60 3RF tramadol 50 mg tablet 50 mg PO Q12H 30 Days Qty: 60 0RF Probiotic 100 billion cell Capsule 1 cap PO DAILY Emergen-C 500 mg Tablet,Chewable 1 tab PO DAILY magnesium 250 mg tablet 500 mg PO DAILY Beet Root 2 cap PO DAILY metoprolol tartrate 25 mg Tablet 25 mg PO BID@0900,2100 Qty: 60 4RF Percocet 5-325 mg tablet 1 tab PO Q8H PRN (Reason: Severe pain) Qty: 14 0RF hydrocodone-acetaminophen 7.5-325 mg tablet See Rx Instructions .ROUTE .COMPLEX Rx Instructions: TAKE 1 TABLET BY MOUTH UP TO TWICE DAILY NEEDED FOR albuterol sulfate 90 mcg/actuation HFA aerosol inhaler See Rx Instructions .ROUTE .COMPLEX Rx Instructions: INHALE 2 PUFFS BY MOUTH EVERY 4 TO 6 HOURS NEEDED FOR SHORTNESS OF BREATH tizanidine 4 mg tablet 4 mg PO Q8H PRN (Reason: muscle spasticity) Qty: 15 0RF gabapentin 300 mg capsule 300 mg PO BID Qty: 20 0RF Discharge Orders: Discharge ED (Routine); Ordered 11/30/23 Ordered By: Mer Lou Referrals: Anthony Jacobs MD [Primary Care Provider] - Discharge Diet: Usual diet Discharge Activity: Increase activity as tolerated Patient Instructions: Opioid Safety, Pain Management Activity Restrictions/Additional Instructions: Please keep the appointment for your MRI for tomorrow. Thank you for choosing [facility] for your healthcare needs today. Please realize this is an emergency room and that we are providing you with a medical screening exam and this may not be complete and all inclusive of all the testing and or work up that you may need to determine your ailment or severity of your illness. You have been screened and evaluated and felt safe for discharge. Health conditions do change or evolve sometimes and as such it is important that you follow up with your Primary Doctor to be re checked, 3-5 days is a general good time frame for follow up. You are always welcome to return to the ED for re assessment if your symptoms are worsening or you have new concerns Coding Level of Care Code ED Actuarial Science Professor for Marquita Streeter
[2023-12-01] MEDS: HYDROcodone-acetaminophen 10-325 mg Tablet 2 TAB PO (00:04)
--- NOTE | 2023-12-01 00:13 | PC.NURSE ---
PT sent home with 2 tabs of Hydrocodone APAP 10-325 tabs to take at home per MD Lou.
[2023-12-01 00:14] VITALS: BP 161/75; PULSE 91; O2SAT 98
== END 2023-12-01 00:17 | disposition home or self-care (01) ==
PROVIDERS: Emergency Provider Emergency Medicine; PCP Family Medicine
DX: S99.922A Unspecified injury of left foot, initial encounter (principal); I10 Essential (primary) hypertension; Z87.891 Personal history of nicotine dependence; W22.03XA Walked into furniture, initial encounter
CPT/HCPCS: 73630; 99283

== ENCOUNTER 2023-12-01 16:32 | Outpatient (CLI) | payer MEDICARE, MEDICAID, SELFPAY ==
--- NOTE | 2023-12-01 16:45 | MRR_ITS ---
PROCEDURE INFORMATION: Exam: MR Left Lower Extremity Joint Without Contrast; Ankle Exam date and time: 12/01/2023 4:51 PM Age: 68 years old Clinical indication: Left; Patient HX: Chronic lt ankle pain. PT states Dr. Deutsch told her the bones in her ankle are disintegrating. No known trauma. ; Additional info: Surgical planning, include the midfoot and navicular, please include the mid-foot and navicular TECHNIQUE: Imaging protocol: Magnetic resonance imaging of the left lower extremity without contrast. Exam focused on the ankle. COMPARISON: MR foot LT wo con* [id number] 12/16/2021 4:27 PM FINDINGS: Bones/joints: Advanced degenerative change of the subtalar joint with significant osseous edema subchondral sclerosis and subchondral bone cyst formation at the talus and calcaneus. Similar-appearing degenerative change along the 2nd, 3rd tarsometatarsal joints. Diffuse heterogeneity of the tibiotalar joint chondral surface without full-thickness defect or fissure. Type 3 os navicularis with mild edematous change in the os. No effusion or significant edema at the synchondrosis to suggest active inflammation/stress. Heel spur is noted. LIGAMENTS: Distal tibiofibular syndesmosis: Unremarkable. No tear. Anterior talofibular ligament: Unremarkable. No tear. Posterior talofibular ligament: Unremarkable. No tear. Calcaneofibular ligament: Unremarkable. No tear. Deltoid ligament complex: Unremarkable. No tear. TENDONS: Flexor tendons of foot: Unremarkable as visualized. Tibialis posterior tendon: Unremarkable as visualized. Peroneal tendons: Perhaps small split tear within the peroneus brevis. Extensor tendons of foot: Unremarkable as visualized. Tibialis anterior tendon: Unremarkable as visualized. Achilles tendon: Unremarkable as visualized. Tarsal canal (Sinus tarsi): Narrowed, edema with fibrous T1 signal, fat appears obliterated. Tarsal tunnel: Unremarkable. Soft tissues: Mild diffuse subcutaneous edema is present throughout the field of view. Prominent subcutaneous fat. Plantar fascia: Plantar fascia is unremarkable. MR/MR ankle LT wo con* [id number] IMPRESSION: 1. No acute findings. 2. 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 Mild degenerative change elsewhere to include the tibiotalar joint. 3. Perhaps small split tear of the peroneus brevis. 4. Type 3 os navicularis with mild edema in the os. 5. Findings compatible with sinus tarsi syndrome. 6. Diffuse subcutaneous edema which is likely secondary to venous/lymphatic malfunction. Unlikely to represent infection, correlate clinically.
== END 2023-12-01 16:33 | disposition home or self-care (01) ==
LOC: RAD 16:32
PROVIDERS: PCP Family Medicine; Visit Provider Podiatrist Foot & Ankle Surgery
DX: M19.072 Primary osteoarthritis, left ankle and foot (principal); S92.255A Nondisplaced fracture of navicular [scaphoid] of left foot, initial encounter for closed fracture; X58.XXXA Exposure to other specified factors, initial encounter; R22.42 Localized swelling, mass and lump, left lower limb; M21.42 Flat foot [pes planus] (acquired), left foot
CPT/HCPCS: 73721

== ENCOUNTER → 2023-12-06 08:35 | Outpatient (BNVA) | payer MEDICARE, MEDICAID, SELFPAY | PROVIDERS: PCP Family Medicine; Visit Provider Podiatrist Foot & Ankle Surgery | DX: M21.42 Flat foot [pes planus] (acquired), left foot; M19.072 Primary osteoarthritis, left ankle and foot; M76.822 Posterior tibial tendinitis, left leg; M21.612 Bunion of left foot; M21.611 Bunion of right foot | CPT/HCPCS: 99213 ==

== ENCOUNTER 2023-12-24 07:57 | Day surgery (SDC) | payer MEDICARE, MEDICAID, SELFPAY ==
[2023-12-24] VITALS (14 sets, daily range): BP systolic 116–168; BP diastolic 53–103; PULSE 77–87; RESP 16–18; TEMP 36.4–37.1; O2SAT 90–98; BMI 49.9
--- NOTE | 2023-12-24 | XR_ITS ---
WS: [id number] C-ARM RADIOGRAPHS LEFT FOOT; 1 IMAGES HISTORY: MIMI PIC COMPARISON: None available. Intraoperative imaging during procedure by podiatry. There are 2 screws overlying the hindfoot. XR/XR foot LT 2V [id number] IMPRESSION: Intraoperative imaging during procedure by podiatry.
[2023-12-24] MEDS: sodium chloride 0.9% 1,000 ML 30 ML IV (08:53)
--- NOTE | 2023-12-24 09:42 | ANES.PREANE2 ---
Pre-Anesthetic Assessment Height/Weight: Height 1.65 m Weight 136.078 kg Temp Pulse Resp BP Pulse Ox O2 Del Method 97.9 F 77 16 168/103 96 Room Air 12/24/23 08:11 12/24/23 08:11 12/24/23 08:11 12/24/23 08:11 12/24/23 08:11 12/24/23 08:11 Preop Diagnosis: Left posterior tibial tendon dysfunction and subtalar joint arthritis. Operation Date: 12/24/23 09:40 Proposed Procedures p Left subtalar joint fusion(Left) - Juan Deutsch DPM s Kidner Procedure(Left) - Juan Deutsch DPM Familial anesthetic complications: None Was Beta Eliseo taken within 24 hours: Yes Was Clonidine taken within 24 hours: N/A Last intake: Intake Last Liquid Date 12/24/23 Last Liquid Time 06:00 Last Solid Date 12/23/23 Last Solid Time 18:00 Social No alcohol and No tobacco Exam alert, oriented x 3, clear to auscultation bilaterally and regular rate & rhythm Airway Mallampati: Class IV Dentition: full Pulmonary Sleep Apnea CV/HEM Atrial Fibrillation and Hypertension GI Gastroesophageal Reflux Disease hx gastric bypass Metabolic Morbid Obesity Anesthetic Plan ASA status: 3 Anesthesia: General Risk of > 500 ml blood loss (7ml/kg in children): No Medications/Allergies Home Medications Medication Instructions Recorded Confirmed Last Taken Type Lactobacillus 40-Bifidobact 1 cap PO DAILY 05/30/19 12/23/23 12/22/23 History 3-S.thermophilus 100 billion cell capsule (Probiotic) vitamin C 500 mg-multivitamin with 1 tab PO DAILY 05/30/19 12/23/23 12/23/23 History minerals chewable tablet (Emergen-C) omeprazole 20 mg tablet,delayed 20 mg PO DAILY 01/16/20 12/23/23 12/24/23 History release turmeric 400 mg capsule 400 mg PO DAILY 08/27/20 12/23/23 12/22/23 History Beet Root 2 cap PO DAILY 05/14/22 12/23/23 12/22/23 History metoprolol tartrate 25 mg tablet 25 mg PO BID@0900,2100 #60 tabs 05/15/22 12/23/23 12/24/23 Rx magnesium 250 mg tablet 500 mg PO DAILY 08/04/22 12/23/23 12/22/23 History SOLE SUPPORTS #1 ea 01/05/23 12/06/23 Unknown Rx albuterol sulfate 90 mcg/actuation 2 puff inhalation PRN 03/14/23 12/23/23 12/17/23 History aerosol inhaler gabapentin 300 mg capsule 300 mg PO BID #20 caps 03/14/23 12/23/23 12/09/23 Rx rivaroxaban 20 mg tablet (Xarelto) 20 mg PO QPM #90 tabs 08/05/23 12/23/23 12/20/23 Rx acetaminophen 500 mg tablet 500 mg PO DAILY fever 30 days #60 09/08/23 12/23/23 Unknown Rx tabs losartan 50 mg tablet 50 mg PO DAILY #90 tabs 11/16/23 12/23/23 12/22/23 Rx tramadol 50 mg tablet 50 mg PO Q12H 30 days #60 tabs 11/25/23 12/23/23 12/09/23 Rx Wheel chair with elevated foot rest #1 ea 12/08/23 Unknown Rx ferrous gluconate 324 mg (38 mg 324 mg PO DAILY 12/23/23 12/23/23 12/23/23 History iron) tablet yeast 1 ea PO DAILY 12/23/23 12/23/23 Unknown History Allergies Allergy/AdvReac Type Severity Reaction Status Date / Time Sulfa (Sulfonamide Allergy Intermediate hives Verified 12/23/23 09:29 Antibiotics) morphine Allergy Unknown Verified 12/23/23 09:29 NSAIDS (Non-Steroidal Allergy Unknown Verified 12/23/23 09:29 Anti-Inflamma tetracycline Allergy ALGY-Anaphy Verified 12/23/23 09:29 laxis methylprednisolone AdvReac Unknown Verified 12/23/23 09:29 [From Medrol] Current Medications Generic Name Dose Route Start Last Admin Trade Name Freq PRN Reason Stop Dose Admin Sodium Chloride 1,000 mls @ 30 mls/hr 12/24/23 08:15 12/24/23 08:53 Sodium Chloride 0.9% IV 12/25/23 08:14 30 mls/hr .Q24H HALEY Administration PFSH Anesthesia Medical History Paroxysmal atrial fibrillation Atrial fibrillation with RVR Symptomatic PVCs Tachycardia Obesity Intermittent palpitations Hypertension Surgical History Total knee replacement status Hx of hysterectomy Hx of gastric bypass Gastric sleeve 2014 Family History Other CAD (coronary artery disease) Cancer Diabetes Stroke Social History Smoking and tobacco/nicotine status: former use of tobacco/nicotine Alcohol intake: current Alcohol intake frequency: other Substance/Drug Use: never Data Anesthesia Cardiac Studies: Echocardiogram 05/14/22 Holter Monitor 11/22/20
--- NOTE | 2023-12-24 09:48 | P.HPUD_ITS ---
Surgery/Procedure H&P Update DATE OF PROCEDURE: December 24, 2023 DATE H&P PERFORMED: 12/06/23 H&P UPDATE INFORMATION: I have reviewed H&P completed within last 30 days, I have examined patient prior to procedure, No changes to prior documentation and H&P is in [facility] E[facility] on date indicated PREOP DIAGNOSIS: Left posterior tibial tendon dysfunction and subtalar joint arthritis. PLANNED PROCEDURE: Operation Date: 12/24/23 09:40 Proposed Procedures p Left subtalar joint fusion(Left) - Juan Deutsch DPM s Jackeline Procedure(Left) - Juan Deutsch DPM
[2023-12-24] MEDS: ceFAZolin 3,000 MG in sodium chloride 0.9% (100 ml) 100 ML 200 MG IV (10:13)
[2023-12-24] MEDS: BUPivacaine liposome 13.3 mg/mL SDV 20 mL 266 MG INJECTION (10:50)
[2023-12-24] MEDS: BUPivacaine 0.25% INJ 30 mL INJECTION (10:50)
[2023-12-24] MEDS: HYDROmorphone 1 mg/mL INJ 1 mL 0.5 MG IVP (12:33)
--- NOTE | 2023-12-24 12:34 | P.BOP_ITS ---
Date of Procedure: 04/30/23 Surgeon: Juan Deutsch DPM Automobile Body Customizer(s): Deb Procedure(s) performed: Left subtalar joint fusion, left Kidner. Findings of the procedure(s): None Estimated blood loss: 25 mL Specimen(s) removed: None Post-operative diagnosis: Left subtalar joint arthrosis and posterior tibial tendon dysfunction left.
--- NOTE | 2023-12-24 12:35 | P.OP_ITS ---
Operative Report Date of procedure: December 24, 2023 Pre-op diagnosis: PTTD (posterior tibial tendon dysfunction) M76.829 Bunion M21.619 Pes planus of left foot M21.42 Laterality: left Arthritis of left subtalar joint M19.072 Post-op diagnosis: PTTD (posterior tibial tendon dysfunction) M76.829 Bunion M21.619 Pes planus of left foot M21.42 Laterality: left Arthritis of left subtalar joint M19.072 Procedure done: 1) left subtalar joint fusion. CPT code 76949 2) left Kidner. CPT code 23878 Implants: Washougal 7 mm screws x 2, cannulated, headed, partially-threaded Washougal grapple or titanium bone anchor 3 mm x 12 mm in length 3-0 Vicryl, 4-0 Vicryl, 4-0 nylon Specimens removed/disposition: No specimens removed Pathology: no pathology Surgeon: Juan Deutsch DPM Manager Skilled: Kim Estimated blood loss: 25 mL 74 IV fluids: See intraoperative documentation Urine output: None Complications: No complications Brief History: 68-year-old female with history of severe osteoarthritis presenting with subtalar joint pain. The patient exhibits degenerative changes in the subtalar joint, resulting in significant functional impairment and pain. The MRI findings corroborate the diagnosis of severe osteoarthritis, necessitating a focused jodie tment approach to address the debilitating symptoms. She also has PTTD with an accessory bone within the posterior tibial tendon that is degenerative. Discussed utility of left subtalar joint arthrodesis and Kidner. Patient also has accessory ossicle at the navicular within the posterior tibial tendon with PTTD. I reviewed at length with the patient, the risks, potential complications, benefits, alternatives, expectations, and typical outcomes associated with the surgery. The risks and potential complications were explained in detail, including but not limited to infection, wound dehiscence or soft tissue complications, bleeding and hematoma, chronic edema, neuritis or nerve damage producing numbness or chronic pain, CRPS, failure to relieve pain or worsening pain, thick / painful / unsightly scar, limited motion / stiffness, malposition, delayed union, malunion, or nonunion, fracture, reaction to implants, anesthetic complications, venous thromboembolism, and deformity recurrence. I discussed the notion of no regrets with the patient as it pertains to complications and outcomes. The patient seemed to understand the nature of the proposed care and required convalescence. They asked appropriate questions, answered to their satisfaction. They are aware no guarantees can be made as to a satisfactory outcome and they understand there may be other possible unforeseen complications or outcomes not listed here that will be treated accordingly if they arise. There were no written or implied guarantees given to the patient. They gave informed consent to proceed. Procedure: Under mild sedation the patient was brought to the operating room and placed onto the operating table in supine position. A timeout was performed. Ane sthesia was then administered by the anesthesia service. Local anesthetic injected by myself at the operative site left lower extremity. Well-padded pneumatic tourniquet applied to the left ankle. Left lower extremity was scrubbed, prepped and draped utilizing normal aseptic technique. Left foot and ankle were then exanguinated with a Esmarch bandage and the ankle tourniquet was inflated to 250 mmHg. Attention was directed to the left medial rear foot where an incision was carried out with a #15 blade extending from the inferior portion of the medial malleolus distally to the medial cuneiform through skin with a #15 blade with dissection carried down through subcutaneous tissue to the layer of the posterior tibial tendon utilizing sharp and blunt technique. Care was taken to retract and preserve neurovascular and tendinous structures. All bleeders were ligated and cauterized as necessary. Posterior tibial tendon was retracted inferiorly and subtalar joint was accessed medially and distracted with a lamina custodian athletic equipment and prepped for arthrodesis, of note the subtalar joint posterior facet was consistent with severe degenerative changes with loss of cartilage and eburnation as well as osteochondral defects. The 3 facets of the subtalar joint were prepped for arthrodesis with curettage, saline flush and subchondral drilling, subtalar joint was reduced to neutral and fusion site was fixated with Washougal 7 mm headed partially-threaded cannulated screws in parallel fashion from posterior inferior to superior anterior not violating the ankle joint confirmed with AP and oblique views of the left ankle, calcaneal axial and lateral foot confirmed excellent placement of hardware and alignment of subtalar joint for arthrodesis with excellent bony apposition and compression noted. Attention was then directed to the posterior tibial tendon as it inserted to the medial navicula, the tendon was degenerative, thickened with fibrosing and split tearing at insertion, the accessory bone within the posterior tibial tendon was sharply excised and passed from operative field and the medial navicular freshened up with a sagittal saw for area to reattach the posterior tibial te ndon. The posterior tibial tendon was sharply debrided of devitalized tendon and tubularized and reinserted at the medial navicular utilizing a Washougal 3.0 x 12 mm titanium bone anchor with excellent strength and advancement of the posterior tibial tendon. The incision was then irrigated with copious amounts of sterile saline solution. Intraoperative C-arm confirmed that titanium anchor did not violate adjacent cartilage surfaces or joints. Further irrigation performed at the incision followed by closure in a layered fashion with periosteum and tendon sheath reapproximated with 3-0 Vicryl, subcutaneous tissue with 4-0 Vicryl and skin with 4-0 nylon. The incision was then dressed with Adaptic, sterile 4 x 4's, Kerlix and Duglas wrap followed by application of a posterior splint with stirrup which was well-padded with multi layer compression consistent with Zacarias splint with the foot and ankle in neutral position. Tourniquet was then deflated and a prompt hyperemic response was appreciated to the distal digits of the left foot. Patient tolerated the procedure and anesthesia well and was transferred to the PACU with vital signs stable and vascular status intact. Following a period of postoperative monitoring she will be discharged home without home care instructions, scheduled follow-up in my cell phone number to contact me with any postoperative questions or concerns.
[2023-12-24] MEDS: ondansetron 2 mg/ML SDV 2 mL 4 MG IVP (12:53)
[2023-12-24] MEDS: oxyCODONE-APAP 10-325 mg Tablet 1 TAB PO (13:25)
--- NOTE | 2023-12-24 14:55 | ANE.PACU2 ---
Inpatient post-anesthesia follow up: Airway intact: Yes Vital signs: Temperature 97.8 F Pulse Rate 81 Respiratory Rate 16 Blood Pressure 147/74 Pulse Oximetry 97 Oxygen Delivery Me thod Room Air Oxygen Flow Rate 2 Fraction of Inspir ed Oxygen Hydration adequate: Yes Nausea and vomiting: No Pain level: 1 Mental status: Baseline
== END 2023-12-24 14:57 | disposition home or self-care (01) ==
PROVIDERS: PCP Family Medicine; Visit Provider Podiatrist Foot & Ankle Surgery
PROC: (CPT 28725; principal; 2023-12-24 09:30)
PROC: (CPT 28238; 2023-12-24 09:30)
DX: M76.822 Posterior tibial tendinitis, left leg (principal); M21.612 Bunion of left foot; M21.42 Flat foot [pes planus] (acquired), left foot; G47.30 Sleep apnea, unspecified; I48.91 Unspecified atrial fibrillation; K21.9 Gastro-esophageal reflux disease without esophagitis; E66.01 Morbid (severe) obesity due to excess calories; Z68.42 Body mass index [BMI] 45.0-49.9, adult; I48.0 Paroxysmal atrial fibrillation; I10 Essential (primary) hypertension; Z87.891 Personal history of nicotine dependence
CPT/HCPCS: 28725; 28238; 73620; 76000; C1713; C9290; J0131; J0330; J0690; J1100; J1171; J2405; J2704; J2795; J3010; J3490; J7030

== ENCOUNTER 2024-01-01 16:58 | Emergency (ER) | payer MEDICARE, MEDICAID, SELFPAY ==
[2024-01-01 17:00] VITALS: BP 175/91; PULSE 96; RESP 18; TEMP 36.7; O2SAT 94; BMI 49.6
[2024-01-01 17:11] VITALS: BP 175/91; PULSE 99; O2SAT 94
--- NOTE | 2024-01-01 17:13 | W.ED.WOUNDLC ---
HPI - Wound/Laceration General: Chief Complaint: Wound/Laceration Stated Complaint: left foot wound Time Seen by Provider: 01/01/24 17:08 Source: patient and EMS Mode of arrival: EMS Limitations: no limitations History of Present Illness: 68-year-old female that had foot surgery [address] Deutsch she states that she had needed a dressing change and came in by ambulance. She had no pain denies any fever. Associated symptoms: Denies chills, fever(s), nausea or vomiting Related Data Home Medications Medication Instructions Recorded Confirmed Lactobacillus 40-Bifidobact 1 cap PO DAILY 05/30/19 12/23/23 3-S.thermophilus 100 billion cell capsule (Probiotic) vitamin C 500 mg-multivitamin with 1 tab PO DAILY 05/30/19 12/23/23 minerals chewable tablet (Emergen-C) omeprazole 20 mg tablet,delayed 20 mg PO DAILY 01/16/20 12/23/23 release turmeric 400 mg capsule 400 mg PO DAILY 08/27/20 12/23/23 Beet Root 2 cap PO DAILY 05/14/22 12/23/23 magnesium 250 mg tablet 500 mg PO DAILY 08/04/22 12/23/23 albuterol sulfate 90 mcg/actuation 2 puff inhalation PRN 03/14/23 12/23/23 aerosol inhaler ferrous gluconate 324 mg (38 mg 324 mg PO DAILY 12/23/23 12/23/23 iron) tablet yeast 1 ea PO DAILY 12/23/23 12/23/23 Previous Rx's Medication Instructions Recorded metoprolol tartrate 25 mg tablet 25 mg PO BID@0900,2100 #60 tabs 05/15/22 SOLE SUPPORTS #1 ea 01/05/23 gabapentin 300 mg capsule 300 mg PO BID #20 caps 03/14/23 rivaroxaban 20 mg tablet (Xarelto) 20 mg PO QPM #90 tabs 08/05/23 acetaminophen 500 mg tablet 500 mg PO DAILY fever 30 days #60 09/08/23 tabs losartan 50 mg tablet 50 mg PO DAILY #90 tabs 11/16/23 Wheel chair with elevated foot rest #1 ea 12/08/23 cyclobenzaprine 10 mg tablet 10 mg PO TID 2 weeks #42 tabs 12/27/23 hydrocodone 10 mg-acetaminophen 1 tab PO Q6H PRN pain 7 days #28 12/29/23 325 mg tablet tabs tramadol 50 mg tablet 50 mg PO Q12H 7 days #14 tabs 12/30/23 hydrocodone 10 mg-acetaminophen 1 tab PO Q6H PRN pain 7 days #28 12/31/23 325 mg tablet tabs methocarbamol 750 mg tablet 1,500 mg (2 x 750 mg) PO TID 1 12/31/23 week #42 tabs Allergies Allergy/AdvReac Type Severity Reaction Status Date / Time Sulfa (Sulfonamide Allergy Intermediate hives Verified 12/23/23 09:29 Antibiotics) morphine Allergy Unknown Verified 12/23/23 09:29 NSAIDS (Non-Steroidal Allergy Unknown Verified 12/23/23 09:29 Anti-Inflamma tetracycline Allergy ALGY-Anaphy Verified 12/23/23 09:29 laxis methylprednisolone AdvReac Unknown Verified 12/23/23 09:29 [From Medrol] Review of Systems Const: Denies: fever(s) or chills ENMT: Denies: throat pain or dental pain Card: Denies: chest pain Resp: Denies: dyspnea GI: Denies: abdominal pain, nausea, vomiting or diarrhea Musc: Denies: neck pain or back pain Skin/Breast: Denies: rash Neuro: Denies: headache(s) PFSH ED PFSH: Medical History Paroxysmal atrial fibrillation Atrial fibrillation with RVR Symptomatic PVCs Tachycardia Obesity Intermittent palpitations Hypertension Surgical History Total knee replacement status Hx of hysterectomy Hx of gastric bypass Gastric sleeve 2014 Family History Other CAD (coronary artery disease) Cancer Diabetes Stroke Social History Smoking and tobacco/nicotine status: former use of tobacco/nicotine Alcohol intake: current Alcohol intake frequency: other Substance/Drug Use: never Physical Exam Const: COMMON NORMALS: no acute distress, patient oriented x3 and healthy appearing HENMT: COMMON NORMALS: normocephalic and atraumatic HEAD & SCALP: normocephalic and atraumatic Neck/C-Spine: COMMON NORMALS: full ROM and supple Chest: COMMONS NORMALS: normal inspection of the chest Resp: COMMON NORMALS: normal respiratory effort Cardio: COMMON NORMALS: regular rate RATE: regular rate Extremity: NARRATIVE EXTREMITY EXAM: Splint placed to left leg Neuro: COMMON NORMALS: patient oriented x3, moves all extremities and no focal motor deficits Psych: COMMON NORMALS: mental status grossly normal, Normal thought process present and cooperative THOUGHT PROCESS: Normal thought process present Skin: COMMON NORMALS: no rashes or lesions noted and no wounds GENERAL SKIN EXAM: no rashes or lesions noted Course Vital Signs: Vital signs: Vital Signs Temperature 98.1 F 01/01/24 17:00 Pulse Rate 99 01/01/24 17:11 Respiratory Rate 18 01/01/24 17:00 Blood Pressure 175/91 01/01/24 17:11 Pulse Oximetry 94 01/01/24 17:11 Oxygen Delivery Me thod Room Air 01/01/24 17:11 MDM - Wound/Laceration Medical Decision Making Patient presents here for dressing change from her foot surgery patient was seen by Dr. Deutsch down here in the ER wounds well-appearing he did change dressing patient stable for discharge she is to follow-up with him. Medical Records I reviewed the patient's medical records. All radiology interpretation(s) finalized by discharge Discharge Plan Discharge Patient Disposition: Home Clinical Impression: Change of dressing Condition: Stable Prescriptions: No Action omeprazole 20 mg tablet,delayed release (DR/EC) 20 mg PO DAILY turmeric 400 mg capsule 400 mg PO DAILY (DME) SOLE SUPPORTS See Rx Instructions .Route .MEDSUPPLY Qty: 1 0RF Rx Instructions: As directed losartan 50 mg tablet 50 mg PO DAILY Qty: 90 3RF hydrocodone-acetaminophen 10-325 mg tablet 1 tab PO Q6H PRN (Reason: pain) 7 Days Qty: 28 0RF methocarbamol 750 mg tablet 1,500 mg PO TID 7 Days Qty: 42 0RF Xarelto 20 mg tablet 20 mg PO QPM Qty: 90 1RF acetaminophen 500 mg tablet 500 mg PO DAILY 30 Days Qty: 60 3RF (DME) Wheel chair with elevated foot rest See Rx Instructions .Route .MEDSUPPLY Qty: 1 0RF Rx Instructions: As directed by HOME Patient will be having surgery on 12/24/23. Length of need is 6 months cyclobenzaprine 10 mg tablet 10 mg PO TID 14 Days Qty: 42 0RF hydrocodone-acetaminophen 10-325 mg tablet 1 tab PO Q6H PRN (Reason: pain) 7 Days Qty: 28 0RF tramadol 50 mg tablet 50 mg PO Q12H 7 Days Qty: 14 0RF Probiotic 100 billion cell Capsule 1 cap PO DAILY Emergen-C 500 mg Tablet,Chewable 1 tab PO DAILY magnesium 250 mg tablet 500 mg PO DAILY Beet Root 2 cap PO DAILY metoprolol tartrate 25 mg Tablet 25 mg PO BID@0900,2100 Qty: 60 4RF yeast Powder 1 ea PO DAILY ferrous gluconate 324 mg (38 mg iron) tablet 324 mg PO DAILY albuterol sulfate 90 mcg/actuation HFA aerosol inhaler 2 puff inhalation PRN Rx Instructions: INHALE 2 PUFFS BY MOUTH EVERY 4 TO 6 HOURS NEEDED FOR SHORTNESS OF BREATH gabapentin 300 mg capsule 300 mg PO BID Qty: 20 0RF Discharge Orders: Discharge ED (Routine); Ordered 01/01/24 Ordered By: Lebron Krishnamurthy Referrals: Juan Deutsch DPM [Physician] - 4-7 days Anthony Jacobs MD [Primary Care Provider] - Discharge Diet: Advance as tolerated Discharge Activity: Resume usual activity Patient Instructions: Chronic Wounds (ED) Coding Level of Care Code ED Lead Systems Engineer for Marquita Streeter
--- NOTE | 2024-01-01 17:29 | W.ED.WOUNDLC ---
HPI - Wound/Laceration General: Chief Complaint: Wound/Laceration Stated Complaint: left foot wound Time Seen by Provider: 01/01/24 17:08 Source: patient and EMS Mode of arrival: EMS Limitations: no limitations History of Present Illness: Related Data Home Medications Medication Instructions Recorded Confirmed Lactobacillus 40-Bifidobact 1 cap PO DAILY 05/30/19 12/23/23 3-S.thermophilus 100 billion cell capsule (Probiotic) vitamin C 500 mg-multivitamin with 1 tab PO DAILY 05/30/19 12/23/23 minerals chewable tablet (Emergen-C) omeprazole 20 mg tablet,delayed 20 mg PO DAILY 01/16/20 12/23/23 release turmeric 400 mg capsule 400 mg PO DAILY 08/27/20 12/23/23 Beet Root 2 cap PO DAILY 05/14/22 12/23/23 magnesium 250 mg tablet 500 mg PO DAILY 08/04/22 12/23/23 albuterol sulfate 90 mcg/actuation 2 puff inhalation PRN 03/14/23 12/23/23 aerosol inhaler ferrous gluconate 324 mg (38 mg 324 mg PO DAILY 12/23/23 12/23/23 iron) tablet yeast 1 ea PO DAILY 12/23/23 12/23/23 Previous Rx's Medication Instructions Recorded metoprolol tartrate 25 mg tablet 25 mg PO BID@0900,2100 #60 tabs 05/15/22 SOLE SUPPORTS #1 ea 01/05/23 gabapentin 300 mg capsule 300 mg PO BID #20 caps 03/14/23 rivaroxaban 20 mg tablet (Xarelto) 20 mg PO QPM #90 tabs 08/05/23 acetaminophen 500 mg tablet 500 mg PO DAILY fever 30 days #60 09/08/23 tabs losartan 50 mg tablet 50 mg PO DAILY #90 tabs 11/16/23 Wheel chair with elevated foot rest #1 ea 12/08/23 cyclobenzaprine 10 mg tablet 10 mg PO TID 2 weeks #42 tabs 12/27/23 hydrocodone 10 mg-acetaminophen 1 tab PO Q6H PRN pain 7 days #28 12/29/23 325 mg tablet tabs tramadol 50 mg tablet 50 mg PO Q12H 7 days #14 tabs 12/30/23 hydrocodone 10 mg-acetaminophen 1 tab PO Q6H PRN pain 7 days #28 12/31/23 325 mg tablet tabs methocarbamol 750 mg tablet 1,500 mg (2 x 750 mg) PO TID 1 12/31/23 week #42 tabs Allergies Allergy/AdvReac Type Severity Reaction Status Date / Time Sulfa (Sulfonamide Allergy Intermediate hives Verified 12/23/23 09:29 Antibiotics) morphine Allergy Unknown Verified 12/23/23 09:29 NSAIDS (Non-Steroidal Allergy Unknown Verified 12/23/23 09:29 Anti-Inflamma tetracycline Allergy ALGY-Anaphy Verified 12/23/23 09:29 laxis methylprednisolone AdvReac Unknown Verified 12/23/23 09:29 [From Medrol] [facility]: Medical History Paroxysmal atrial fibrillation Atrial fibrillation with RVR Symptomatic PVCs Tachycardia Obesity Intermittent palpitations Hypertension Surgical History Total knee replacement status Hx of hysterectomy Hx of gastric bypass Gastric sleeve 2014 Family History Other CAD (coronary artery disease) Cancer Diabetes Stroke Social History Smoking and tobacco/nicotine status: former use of tobacco/nicotine Alcohol intake: current Alcohol intake frequency: other Substance/Drug Use: never Course Vital Signs: Vital signs: Vital Signs Temperature 98.1 F 01/01/24 17:00 Pulse Rate 99 01/01/24 17:11 Respiratory Rate 18 01/01/24 17:00 Blood Pressure 175/91 01/01/24 17:11 Pulse Oximetry 94 01/01/24 17:11 Oxygen Delivery Va thod Room Air 01/01/24 17:11 Discharge Plan Discharge Patient Disposition: Home Clinical Impression: Change of dressing Condition: Stable Prescriptions: No Action omeprazole 20 mg tablet,delayed release (DR/EC) 20 mg PO DAILY turmeric 400 mg capsule 400 mg PO DAILY (DME) SOLE SUPPORTS See Rx Instructions .Route .MEDSUPPLY Qty: 1 0RF Rx Instructions: As directed losartan 50 mg tablet 50 mg PO DAILY Qty: 90 3RF hydrocodone-acetaminophen 10-325 mg tablet 1 tab PO Q6H PRN (Reason: pain) 7 Days Qty: 28 0RF methocarbamol 750 mg tablet 1,500 mg PO TID 7 Days Qty: 42 0RF Xarelto 20 mg tablet 20 mg PO QPM Qty: 90 1RF acetaminophen 500 mg tablet 500 mg PO DAILY 30 Days Qty: 60 3RF (DME) Wheel chair with elevated foot rest See Rx Instructions .Route .MEDSUPPLY Qty: 1 0RF Rx Instructions: As directed by HOME Patient will be having surgery on 12/24/23. Length of need is 6 months cyclobenzaprine 10 mg tablet 10 mg PO TID 14 Days Qty: 42 0RF hydrocodone-acetaminophen 10-325 mg tablet 1 tab PO Q6H PRN (Reason: pain) 7 Days Qty: 28 0RF tramadol 50 mg tablet 50 mg PO Q12H 7 Days Qty: 14 0RF Probiotic 100 billion cell Capsule 1 cap PO DAILY Emergen-C 500 mg Tablet,Chewable 1 tab PO DAILY magnesium 250 mg tablet 500 mg PO DAILY Beet Root 2 cap PO DAILY metoprolol tartrate 25 mg Tablet 25 mg PO BID@0900,2100 Qty: 60 4RF yeast Powder 1 ea PO DAILY ferrous gluconate 324 mg (38 mg iron) tablet 324 mg PO DAILY albuterol sulfate 90 mcg/actuation HFA aerosol inhaler 2 puff inhalation PRN Rx Instructions: INHALE 2 PUFFS BY MOUTH EVERY 4 TO 6 HOURS NEEDED FOR SHORTNESS OF BREATH gabapentin 300 mg capsule 300 mg PO BID Qty: 20 0RF Discharge Orders: Discharge ED (Routine); Ordered 01/01/24 Ordered By: Lebron Krishnamurthy Referrals: Juan Deutsch DPM [Physician] - 4-7 days Anthony Jacobs MD [Primary Care Provider] - Discharge Diet: Advance as tolerated Discharge Activity: Resume usual activity Patient Instructions: Chronic Wounds (ED) Coding Level of Care Code ED Booking Clerk for Marquita Streeter
--- NOTE | 2024-01-01 17:32 | P.CONIM_ITS ---
Providers/Reason For Consult Consulting Physician/Specialty*: Juan Deutsch D.P.M./podiatry Reason for Consult*: Surgical site inspection left lower extremity Primary Care Provider: Anthony Jacobs MD History of Present Illness History of Present Illness Patient presents to emergency department with complaints of left lower extremity surgical dressing having unraveled.? She is status post left foot surgery with subtalar joint arthrodesis and posterior tibial tendon repair date of operation 12/24/2023, patient denies any subjective nausea, vomiting, fever, chills, shortness of breath or chest pain. Review of Systems General: Reports: 10 or more systems reviewed and unremarkable except in HPI and below Const: Denies: fever(s) or chills Eyes: Denies: change in vision Card: Denies: chest pain or palpitations Resp: Denies: dyspnea or productive cough GI: Denies: abdominal pain, nausea or vomiting : Denies: flank pain Musc: Reports: extremity pain, extremity swelling and deformity Skin/Breast: Reports: surgical incision; Denies: rash Neuro: Denies: numbness in extremities, sensory changes or frequent falls Psych: Denies: suicidal ideation Edwin/Lymph: Denies: easy bruising Medications/Allergies Home Medications Medication Instructions Recorded Confirmed Last Taken Type Lactobacillus 40-Bifidobact 1 cap PO DAILY 05/30/19 12/23/23 12/22/23 History 3-S.thermophilus 100 billion cell capsule (Probiotic) vitamin C 500 mg-multivitamin with 1 tab PO DAILY 05/30/19 12/23/23 12/23/23 History minerals chewable tablet (Emergen-C) omeprazole 20 mg tablet,delayed 20 mg PO DAILY 01/16/20 12/23/23 12/24/23 History release turmeric 400 mg capsule 400 mg PO DAILY 08/27/20 12/23/23 12/22/23 History Beet Root 2 cap PO DAILY 05/14/22 12/23/23 12/22/23 History metoprolol tartrate 25 mg tablet 25 mg PO BID@0900,2100 #60 tabs 05/15/22 12/23/23 12/24/23 Rx magnesium 250 mg tablet 500 mg PO DAILY 08/04/22 12/23/23 12/22/23 History SOLE SUPPORTS #1 ea 01/05/23 12/06/23 Unknown Rx albuterol sulfate 90 mcg/actuation 2 puff inhalation PRN 03/14/23 12/23/23 12/17/23 History aerosol inhaler gabapentin 300 mg capsule 300 mg PO BID #20 caps 03/14/23 12/23/23 12/09/23 Rx rivaroxaban 20 mg tablet (Xarelto) 20 mg PO QPM #90 tabs 08/05/23 12/23/23 12/20/23 Rx acetaminophen 500 mg tablet 500 mg PO DAILY fever 30 days #60 09/08/23 12/23/23 Unknown Rx tabs losartan 50 mg tablet 50 mg PO DAILY #90 tabs 11/16/23 12/23/23 12/22/23 Rx Wheel chair with elevated foot rest #1 ea 12/08/23 Unknown Rx ferrous gluconate 324 mg (38 mg 324 mg PO DAILY 12/23/23 12/23/23 12/23/23 History iron) tablet yeast 1 ea PO DAILY 12/23/23 12/23/23 Unknown History cyclobenzaprine 10 mg tablet 10 mg PO TID 2 weeks #42 tabs 12/27/23 Unknown Rx hydrocodone 10 mg-acetaminophen 1 tab PO Q6H PRN pain 7 days #28 12/29/23 Unknown Rx 325 mg tablet tabs tramadol 50 mg tablet 50 mg PO Q12H 7 days #14 tabs 12/30/23 Unknown Rx hydrocodone 10 mg-acetaminophen 1 tab PO Q6H PRN pain 7 days #28 12/31/23 12/31/23 Unknown Rx 325 mg tablet tabs methocarbamol 750 mg tablet 1,500 mg (2 x 750 mg) PO TID 1 12/31/23 12/31/23 Unknown Rx week #42 tabs Allergies Allergy/AdvReac Type Severity Reaction Status Date / Time Sulfa (Sulfonamide Allergy Intermediate hives Verified 12/23/23 09:29 Antibiotics) morphine Allergy Unknown Verified 12/23/23 09:29 NSAIDS (Non-Steroidal Allergy Unknown Verified 12/23/23 09:29 Anti-Inflamma tetracycline Allergy ALGY-Anaphy Verified 12/23/23 09:29 laxis methylprednisolone AdvReac Unknown Verified 12/23/23 09:29 [From Medrol] PFSH Acute PFSH: Medical History Paroxysmal atrial fibrillation Atrial fibrillation with RVR Symptomatic PVCs Tachycardia Obesity Intermittent palpitations Hypertension Surgical History Total knee replacement status Hx of hysterectomy Hx of gastric bypass Gastric sleeve 2014 Family History Other CAD (coronary artery disease) Cancer Diabetes Stroke Social History Smoking and tobacco/nicotine status: former use of tobacco/nicotine Alcohol intake: current Alcohol intake frequency: other Substance/Drug Use: never Vitals/I&O/Wt Last Vital Signs Temp 98.1 F 01/01/24 17:00 Pulse 99 01/01/24 17:11 Resp 18 01/01/24 17:00 BP 175/91 01/01/24 17:11 Pulse Ox 94 01/01/24 17:11 O2 Del Method Room Air 01/01/24 17:11 Weight last 48 hrs Weight 298 lb Physical Exam Narrative: GENERAL: Patient is alert and oriented ?3 and in no acute distress. The following is a focused left lower extremity exam. VASCULAR: Dorsalis pedis and posterior tibial arteries palpable +2. Capillary refill time less than 3 seconds to the distal hallux bilaterally. Calf is supple and nontender proximally and distally. Mild edema at the operative site consistent with postoperative course. NEUROLOGICAL: Protective sensation intact to light touch. DERMATOLOGICAL: Incision site is well coapted with sutures intact mild ecchymosis no erythema no dehiscence no drainage or warmth. MUSCULOSKELETAL: Tenderness about the operative site consistent with po stoperative course. No pain with posterior calf squeeze. Further musculoskeletal exam deferred due to postoperative state. A&P Assessment and plan (1) Arthritis of left subtalar joint: (2) Posterior tibial tendon dysfunction (PTTD) of left lower extremity: (3) S/P foot surgery: Plan Status post left subtalar joint fusion and posterior tibial tendon repair date of operation 12/24/2023 New dressings applied to the left lower extremity consisting of Adaptic, sterile gauze, Mariajose, cast padding, Duglas wrap, posterior splint with stirrup Surgical site is well-healing without signs of infection Nonweightbearing left lower extremity patient has wheelchair and assistive devices at home including bedside commode Elevate left foot while resting Follow-up in podiatry clinic next 01/06/2024 at 2:45 PM Coding Level of Care Code Acute Code for Chg Fwd Diagnoses Arthritis of left subtalar joint M19.072 Posterior tibial tendon dysfunction (PTTD) of left lower extremity M76.822 S/P foot surgery Z98.890
[2024-01-01 18:45] VITALS: BP 176/94; PULSE 85; O2SAT 90
[2024-01-01 19:34] VITALS: BP 152/100; PULSE 86; RESP 18; O2SAT 95
== END 2024-01-01 19:34 | disposition home or self-care (01) ==
PROVIDERS: Emergency Provider Emergency Medicine; PCP Family Medicine
DX: Z48.01 Encounter for change or removal of surgical wound dressing (principal); I10 Essential (primary) hypertension; Z87.891 Personal history of nicotine dependence
CPT/HCPCS: 99283

== ENCOUNTER → 2024-01-06 14:30 | Outpatient (BNVA) | payer MEDICARE, MEDICAID, SELFPAY | PROVIDERS: PCP Family Medicine; Visit Provider Podiatrist Foot & Ankle Surgery | DX: Z98.890 Other specified postprocedural states (principal); M76.822 Posterior tibial tendinitis, left leg; M19.072 Primary osteoarthritis, left ankle and foot; Z47.89 Encounter for other orthopedic aftercare | CPT/HCPCS: 73630 ==

== ENCOUNTER 2024-01-06 17:24 | Outpatient (CLI) | payer MEDICARE, MEDICAID, SELFPAY | END 2024-01-06 17:25 | disposition home or self-care (01) | LOC: SPT 17:26 | PROVIDERS: PCP Family Medicine; Visit Provider Podiatrist Foot & Ankle Surgery | DX: Z47.89 Encounter for other orthopedic aftercare (principal) | CPT/HCPCS: L4361 ==

== ENCOUNTER → 2024-01-27 11:05 | Outpatient (BNVA) | payer MEDICARE, MEDICAID, SELFPAY | PROVIDERS: PCP Family Medicine; Visit Provider Podiatrist Foot & Ankle Surgery | DX: Z98.890 Other specified postprocedural states (principal); M76.822 Posterior tibial tendinitis, left leg; M19.072 Primary osteoarthritis, left ankle and foot | CPT/HCPCS: 73630; 99024 ==

== ENCOUNTER → 2024-03-02 13:05 | Outpatient (BNVA) | payer MEDICARE, MEDICAID, SELFPAY | PROVIDERS: PCP Family Medicine; Visit Provider Podiatrist Foot & Ankle Surgery | DX: Z98.890 Other specified postprocedural states (principal); M76.822 Posterior tibial tendinitis, left leg; M19.072 Primary osteoarthritis, left ankle and foot | CPT/HCPCS: 73630; 99024 ==

== ENCOUNTER 2024-04-03 10:13 | Outpatient (CLI) | payer MEDICARE, MEDICAID, SELFPAY ==
--- NOTE | 2024-04-03 10:20 | MM_ITS ---
WS: [id number] VIEWS: MLO and CC views both breasts. 3D digital tomosynthesis is also included in this exam. Comparison made with prior exam of 01/25/2013, 06/21/2014, 12/16/2015, 01/25/2018, 02/01/2020, 02/13/2022,. Findings: There are scattered areas of fibroglandular density. No sign of suspicious mass, tumor calcification or architectural distortion. MM/MM scr BI tomosynthesis [id number] Impression: BI-RADS: 2 - Benign. FOLLOW-UP: 1 Year Follow-up This mammogram was also analyzed by the Computer Aided Detection System R2 Imag e Firestop/Containment Worker.
== END 2024-04-03 10:14 | disposition home or self-care (01) ==
LOC: RAD 10:16
PROVIDERS: PCP Family Medicine; Visit Provider Family Medicine
DX: Z12.31 Encounter for screening mammogram for malignant neoplasm of breast (principal); R92.323 Mammographic fibroglandular density, bilateral breasts
CPT/HCPCS: 77063; 77067

== ENCOUNTER → 2024-05-04 12:51 | Outpatient (BNVA) | payer MEDICARE, MEDICAID, SELFPAY | PROVIDERS: PCP Family Medicine; Visit Provider Podiatrist Foot & Ankle Surgery | DX: Z98.890 Other specified postprocedural states (principal); M76.822 Posterior tibial tendinitis, left leg; M19.072 Primary osteoarthritis, left ankle and foot | CPT/HCPCS: 73630; 99024 ==

== ENCOUNTER → 2024-06-09 08:52 | Outpatient (BNVA) | payer MEDICARE, MEDICAID, SELFPAY | PROVIDERS: PCP Family Medicine; Visit Provider Nurse Practitioner Family | DX: I48.0 Paroxysmal atrial fibrillation (principal); I10 Essential (primary) hypertension; T44.7X5A Adverse effect of beta-adrenoreceptor antagonists, initial encounter; Z79.01 Long term (current) use of anticoagulants; Z87.891 Personal history of nicotine dependence | CPT/HCPCS: 99214 ==

== ENCOUNTER 2024-06-15 15:52 | Outpatient (CLI) | payer MEDICARE, MEDICAID, SELFPAY ==
--- NOTE | 2024-06-15 16:00 | CTR_ITS ---
PROCEDURE INFORMATION: Exam: CT Abdomen And Pelvis With Contrast Exam date and time: 06/15/2024 5:07 PM Age: 69 years old Clinical indication: Abdominal pain; Localized; Prior surgery; Surgery date: 6+ months; Surgery type: Gastric sleeve, hyst, appy, gb; Cramping in lower abdomen area x 2 weeks; Additional info: Lower abdominal pain TECHNIQUE: Imaging protocol: Computed tomography of the abdomen and pelvis with contrast. Radiation optimization: All CT scans at this facility use at least one of these dose optimization techniques: automated exposure control; mA and/or kV adjustment per patient size (includes targeted exams where dose is matched to clinical indication); or iterative reconstruction. Contrast material: OMNI 350; Contrast volume: 100 ml; Contrast route: INTRAVENOUS (IV); COMPARISON: CT abdomen pelvis wo con [id number] 07/30/2021 1:37 AM RADIATION DOSE METRICS: Total DLP (mGy-cm): 1277 FINDINGS: Lungs: Unremarkable. Liver: Normal. No mass. Gallbladder and biliary ducts: Cholecystectomy. Pancreas: Normal. No ductal dilation. Spleen: Normal. No splenomegaly. Adrenal glands: Normal. No mass. Kidneys and ureters: 1.8 cm simple appearing left renal cysts. Additional subcentimeter bilateral renal hypodensities. These are not completely characterized but are likely benign cysts. In the absence of risk factors, no further workup is recommended. Stomach and bowel: Postsurgical changes of gastric sleeve procedure. Sigmoid diverticulosis. Appendix: Appendectomy. Intraperitoneal space: Unremarkable. No free air. No significant fluid collection. Vasculature: Unremarkable. No abdominal aortic aneurysm. Lymph nodes: Unremarkable. No enlarged lymph nodes. Urinary bladder: Unremarkable as visualized. Reproductive: Hysterectomy. Bones/joints: No acute fracture. Soft tissues: Unremarkable. CT/CT abdomen pelvis w con* [id number] IMPRESSION: 1. No acute abdominopelvic findings. 2. Sigmoid diverticulosis without CT evidence of acute diverticulitis. COMMENTS: Consistent with the [employer]'s Incidental Findings Committee white paper (J Am Sabino Radiol 2018): Any incidental renal lesion less than 1 cm or classified as too small to characterize, or any incidental cystic renal lesion characterized as simple-appearing, is likely benign. No follow-up imaging is recommended for these lesions per consensus recommendations based on imaging criteria.
[2024-06-15] MEDS: iohexol 350 mg/mL 500 mL Btl (per mL) PO (16:38)
[2024-06-15] MEDS: iohexol 350 mg/mL 500 mL Btl (per mL) IV (17:15)
== END 2024-06-15 15:53 | disposition home or self-care (01) ==
PROVIDERS: PCP Family Medicine; Visit Provider Family Medicine
DX: R10.30 Lower abdominal pain, unspecified (principal); K57.30 Diverticulosis of large intestine without perforation or abscess without bleeding; Z90.49 Acquired absence of other specified parts of digestive tract; N28.1 Cyst of kidney, acquired; R93.422 Abnormal radiologic findings on diagnostic imaging of left kidney; R93.421 Abnormal radiologic findings on diagnostic imaging of right kidney; Z98.890 Other specified postprocedural states
CPT/HCPCS: 74177

== ENCOUNTER 2024-08-08 07:18 | Outpatient (CLI) | payer OTHER, MEDICAID, SELFPAY ==
--- NOTE | 2024-08-08 07:23 | CT_ITS ---
WS: [id number] CT LEFT SHOULDER, WITH CONTRAST HISTORY: L SHOULDER JOINT IMPINGEMENT Technique: All CT scans at [facility] use at least one of these dose optimization techniques: automated exposure control; mA and/or kV adjustment per patient size (includes targeted exams where dose is matched to clinical indication); or iterative reconstruction. DLP: 567.28 mGy.cm COMPARISON: Radiograph 06/05/2024. Contrast: Omnipaque 350; 100 mL. Mild AC joint arthritis. Small osteophytes from the distal clavicle. No significant subacromial impingement. Humeral head is normally positioned in the glenoid. There is mild narrowing of the glenoid. Very minimal surface irregularity of the glenoid and humeral head from loss of cartilage. No large subchondral cysts. No significant rotator cuff muscle atrophy. Fluid is noted in the subscapularis recess. Small axillary lymph nodes. Visualized LEFT lung is clear. Complex LEFT thyroid nodule measuring 3.0 x 1.6 cm. Nodule has been previously described by thyroid ultrasound on 07/04/2020. Mild atherosclerosis aorta. No enhancing masses identified. CT/CT shoulder LT w con [id number] IMPRESSION: 1. Mild AC joint and glenohumeral joint arthritis. 2. No enhancing masses. 3. Fluid in the subscapularis recess. 4. No rotator cuff muscle atrophy.
[2024-08-08 08:09] LABS: Blood Urea Nitrogen 12 mg/dL (8-23); Glomerular Filtration Rate 83.5 mL/min (90-130)
[2024-08-08] MEDS: iohexol 350 mg/mL 500 mL Btl (per mL) IV (08:21)
== END 2024-08-08 07:19 | disposition home or self-care (01) ==
PROVIDERS: Radiology Neuroradiology; PCP Family Medicine; Visit Provider Orthopaedic Surgery
DX: M75.42 Impingement syndrome of left shoulder (principal); M19.012 Primary osteoarthritis, left shoulder
CPT/HCPCS: 73201; 82565; 84520

== ENCOUNTER → 2025-02-06 14:39 | Outpatient (BNVA) | payer MEDICARE, MEDICAID, SELFPAY | PROVIDERS: PCP Family Medicine; Visit Provider Internal Medicine | DX: I48.0 Paroxysmal atrial fibrillation (principal); I10 Essential (primary) hypertension; Z79.01 Long term (current) use of anticoagulants; Z87.891 Personal history of nicotine dependence | CPT/HCPCS: 99213 ==

== ENCOUNTER 2025-02-12 11:38 | Emergency (ER) | payer MEDICARE, MEDICAID, SELFPAY ==
--- OUTSIDE RECORDS SUMMARY | 2023-12-11 03:00 | XMS_ITS ---
Author Organization [facility] Address [address] [place] [address] Care Team Providers Care Budget Director Name Role Phone Ernie Edmond Primary Care Provider Unavailabl e Migration, Provider Unavailable Unavailable REASON FOR VISIT EMR-Compa Encounters Encounter Location Date Provider Diagnosis Migrated_Facility 0 0 12/11/2023 Provider Migration Plan Of Treatment No Information Progress Notes * DWAINNa LimaScotB: 957 (70 yo F)Acc No.[id number]:12/11/2023 Patient: Xiao ASHTON :1955 A ge:68 Y S ex:Female Address:[address] [place] [address], [id number] Subjective: * Chief Complaints: * E MR-Compa * * Date:
--- OUTSIDE RECORDS SUMMARY | 2023-12-12 03:00 | XMS_ITS ---
Author Organization [facility] Address [address] [place] [address] Care Team Providers Care Ranch Helper Name Role Phone Ernie Edmond Primary Care Provider Unavailabl e Migration, Provider Unavailable Unavailable REASON FOR VISIT EMR-Compa Encounters Encounter Location Date Provider Diagnosis Migrated_Facility 0 0 12/12/2023 Provider Migration Plan Of Treatment No Information Progress Notes * DWAINNa LiamScotB: 957 (70 yo F)Acc No.[id number]:12/12/2023 Patient: Xiao ASHTON :1955 A ge:68 Y S ex:Female Address:[address] [place] [address], [id number] Subjective: * Chief Complaints: * E MR-Compa * * Date:
--- NOTE | 2025-02-12 11:41 | XR_ITS ---
WS: [id number] Portable AP upright chest, 02/12/2025 Clinical Data: cp Comparison: Portable chest, 05/13/2022 Findings: No nodules, masses or effusions are seen. The heart is normal. The pulmonary vascularity is not increased. No pneumonia or pneumothorax is seen. The aortic arch and descending thoracic aorta show mild calcification and tortuosity. There are orthopedic anchors in the right humeral head. XR/XR chest 1V portable [id number] Impression: Atherosclerosis.
--- OUTSIDE RECORDS SUMMARY | 2025-02-12 11:50 | XMS_ITS | Clinical Summary ---
Author Organization [facility] Address [facility] [place] [address] Care Team Providers Care Psychology Assistant Name Role Phone Anthony Jacobs MD Primary Care Provider Allergies Active Allergy Reactions Criticality Noted Date Comments Amitriptyline Other (See Comments) 02/15/2013 amitriptyline Lisinopril Cough Low 07/24/2024 Methocarbamol Other (See Comments) 07/24/2024 Enders odd Methylprednisolone Other (See Comments) 03/11/2011 made me feel strange Metoclopramide Other (See Comments) 03/11/2011 caused my legs to jerk Metoclopramide Hcl Other (See Comments) 07/24/2024 Morphine Other (See Comments) 07/27/2019 Makes Me Hyper Nsaids (Non-Steroidal Anti-Inflammatory Drug) Other (See Comments) 07/27/2019 Post Gastric Bypass Sulfa (Sulfonamide Antibiotics) Hives,Other (See Comments) High 03/11/2011 Sulfamethoxazole-Trimethopr im Hives High 07/24/2024 Suvorexant Confusion Low 07/24/2024 Tetracycline Anaphylaxis High 03/11/2011 Medications losartan (COZAAR) 50 mg tablet TK 1 AND 1/2 TS PO D 0 Active HYDROcodone-max taminophen (NORCO) 5-325 mg tablet Take 1 Tablet by mouth every 4 hours as needed for Pain, Moderate. 0 Active methocarbamoL (ROBAXIN) 500 mg tablet Take 500 mg by mouth one time only. Active metoprolol tartrate (LOPRESSOR) 25 mg tablet TAKE 1 TABLET BY MOUTH TWICE DAILY AT 9AM AND 9PM. Active Belsomra 10 mg tablet Take 1 Tablet by mouth daily at bedtime. Active OMEPRAZOLE 2 MG/ML ORAL SUSPENSION Take 2 mg by mouth daily. Active albuterol sulfate (Proair Digihaler) 90 mcg/actuation aero powdr breath act w/sensor Inhale 2 puffs every 4 hours by inhalation route as needed. Active gabapentin (NEURONTIN) 300 mg capsule Take 1 Capsule by mouth 3 times daily. 4 Active magnesium oxide/magnesium (MY-VARG-VLWGOJ N ORAL) Take by mouth 2 times daily. Active traMADoL (ULTRAM) 50 mg tablet TAKE 1 TABLET BY MOUTH EVERY TWELVE HOURS FOR 30 DAYS 4 Active Xarelto 20 mg Tablet TAKE 1 TABLET BY MOUTH EVERY DAY AT DINNER Active Pain Reliever, acetaminophen, 500 mg tablet TAKE 1 TABLET BY MOUTH EVERY DAY FOR fever FOR 30 DAYS 4 Active FOLIC ACID ORAL Take by mouth daily at bedtime. Active acetaminophen (TYLENOL) 500 mg tablet Take 500 mg by mouth every 6 hours as needed for Pain. Active omeprazole (PriLOSEC) 20 mg Capsule, Delayed Release(E.C.) Take 20 mg by mouth daily. Active FLAXSEED MM daily. Active Magnesium Oxide 420 mg Tablet Take by mouth 2 times daily. Active L. acidophilus/pec tin, citrus (ACIDOPHILUS PROBIOTIC ORAL) daily. Acti ve RED BEET-SOUR GONZALEZ EXTRACT ORAL Take by mouth daily. Active turmeric 400 mg Capsule Take by mouth daily. Active ascorbic acid, vitamin C, (Vitamin C) 500 mg tablet Take by mouth daily. Active vit C-vit S-effayr-otnd OXIDE-lutein (PRESERVISION) 226-90-0.8-5 mg Capsule Take 1 Capsule by mouth 2 times daily. 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 Severe obesity (BMI 35.0-39.9) with comorbidity 07/27/2019 Status post left knee replacement 07/27/2019 History of tobacco use 07/27/2019 Status post right knee replacement 07/27/2019 ONEYDA (obstructive sleep apnea) 07/27/2019 History of gastric bypass 07/27/2019 Leukocytopenia 07/27/2019 Knee pain, right 04/08/2011 Essential hypertension 03/11/2011 Resolved Problems Problem Noted Date Diagnosed Date Resolved Date Instability of right knee joint 07/27/2019 08/29/2019 Preoperative general physical examination 07/27/2019 08/15/2019 Encounters Date Type Department Care Team Description 02/06/2025 External Device Data STL ABSTRACTION Provider, Abstract 02/06/2025 External Device Data STL ABSTRACTION Provider, Abstract 01/02/2025 External Device Data STL ABSTRACTION Provider, Abstract 12/13/2024 External Device Data STL ABSTRACTION Provider, Abstract 12/13/2024 External Device Data STL ABSTRACTION Provider, Abstract 12/06/2024 External Device Data STL ABSTRACTION Provider, Abstract 12/05/2024 External Device Data STL ABSTRACTION Provider, Abstract from Last 3 Months Family History Medical History Relation Name Comments Hypertension Brother 1 Kenn Harris AFib Heart Disease Brother 2 rigoberto harris Alcohol abuse Brother 3 Liver Disease Brother 3 Cirrhosis No Known Problems Daughter 1 No Known Problems Daughter 2 Heart Disease Father Fabiola Harris 2017 Stroke Father Fabiola Harris Arthritis-osteo Mother Chanell Simpson in 2001 Arthritis-rheumatoid Mother Chanell Simpson COPD Mother Chanell Simpson No Known Problems Sister No Known Problems Son Relation Name Status Comments Brother 1 Kenn Harris Alive Brother 2 rigoberto harris Alive Brother 3 Alive Daughter 1 Alive Daughter 2 Alive Father Fabiola Harris Mother Chanell Simpson Sister Alive Son Alive Social History Tobacco Use Types Packs/Day Years Used Date Smoking Tobacco: Former Cigarettes 1 25 1 975 - 02/15/1999 Smokeless Tobacco: Never Tobacco Cessation:Counseling Given: Not Answered Comments:Quit smoking: smoked 1 to 1.5 paks per day Alcohol Use Standard Drinks/Week Comments No 0 (1 standard drink = 0.6 oz pur e alcohol) Comments No Sex and Gender Information Value Date Recorded Sex Assigned at Not on file Legal Sex Female 11:22 AM TRANSCRIPT CLERK Gender Identity Not on file Sexual Orientation Not on file Last Filed Vital Signs Vital Sign Reading Time Taken Comments Blood Pressure 160/104 07/13/2024 2:15 PM CDT Pulse 75 03/30/2023 8:10 AM TRANSCRIPT CLERK Temperature 36.3 C (97.3 F) 08/18/2019 7:30 AM CDT Respiratory Rate 16 08/18/2019 7:30 AM CDT Oxygen Saturation 98% 03/30/2023 8:10 AM TRANSCRIPT CLERK Inhaled Oxygen Concentration - - Weight 133.3 kg (293 lb 14.4 oz) 07/13/2024 2:15 PM CDT Height 165.1 cm (5' 5 ) 07/13/2024 2:15 PM CDT Body Mass Index 48.91 07/13/2024 2:15 PM CDT Plan of Treatment Health Maintenance Due Date Last Done Comments Pre-Diabetes and Diabetes Screening 1955 BREAST CANCER SCREENING 1997 FIT-DNA Q 3 years 2002 FIT/FOBT Q 1 year 2002 Flex Sig/CT Colonography Q 5 years 2002 RSV VACCINE (60+ or ) (1 - Risk 50-74 years 1-dose series) 2007 ZOSTER VACCINE (1 of 2) 2007 PNEUMOCOCCAL VACCINE 50+ YEA RS (2 of 2 - PCV) 11/16/2015 11/15/2014 OSTEOPOROSIS SCREENING 2022 Medicare Advantage ([place]) Preventative Visit/Annual Wellness Visit 02/16/2024 INFLUENZA VACCINE (#1) 2024 8, 11/16/2015, 11/15/2014, Additional history exists COVID-19 Vaccine (3 - 2024-2 6 season) 2024 09/27/2020, 08/30/2020 DTAP/TDAP/TD VACCINES (3 - T d or Tdap) 05/04/2032 05/04/2022, 01/12/2011 COLORECTAL SCREENING 02/23/2034 02/24/2024, 12/24/19 Colorectal Cancer Screening 02/23/2034 Medical Devices Implanted Type Area Bleach Maker Device Identifier Shelf Expiration Date Model / Serial / Lot Cement Simplex Hvisc 6194 - [id number] Implanted:02/2019 by Ghulam Zacarias MD (Quantity not on file) Cement Right: Knee [employer] [id number] 11/14/2020 6194 / / [id number] Cement Simplex Hvisc 6194 - [id number] Implanted:02/2019 by Ghulam Zacarias MD (Quantity not on file) Cement Right: Knee [employer] [id number] 11/14/2020 6194 / / [id number] Stem Fem Attune 28u55ds 1513-18-060 - [id number] Implanted:Qty : 1 on 08/16/2019 by Ghulam Zacarias MD Knee Right: Knee [employer] [id number] 06/14/2029 [id number] / / [id number] Augment Fem Attune Dist Sz5 4mm Rev 1547-05-001 - [id number] Implanted:Qty : 1 on 08/16/2019 by Ghulam Zacarias MD Knee Right: Knee [employer] [id number] 05/15/2029 [id number] / / [id number] Baseplate Tib Attune Rev Sz6 1506-60-006 - [id number] Implanted:Qty : 1 on 08/16/2019 by Ghulam Zacarias MD Knee Right: Knee [employer] [id number] 02/14/2029 1506-60-006 / / [id number] Comp Fem Attune Rev Sz5 Rt 150 - [id number] Implanted:Qty : 1 on 08/16/2019 by Ghulam Zacarias MD Knee Right: Knee [employer] [id number] 06/14/2029 [id number] / / [id number] Sleeve Fem Attune Full Por 45mm 151 - [id number] Implanted:Qty : 1 on 08/16/2019 by Ghulam Zacarias MD Knee Right: Knee [employer] [id number] 07/15/2029 151 / / [id number] Sleeve Fem Attune Rev 40mm 151 - [id number] Implanted:Qty : 1 on 08/16/2019 by Ghulam Zacarias MD Knee Right: Knee [employer] [id number] 09/14/2028 1511-01-204 / / [id number] Stem Fem Attune [id number] 1513-16-110 - [id number] Implanted:Qty : 1 on 08/16/2019 by Ghulam Zacarias MD Knee Right: Knee [employer] [id number] 06/14/2029 [id number] / / [id number] Aug Fem Attune Post Sz5 4mm Implanted:Qty : 1 on 08/16/2019 by Ghulam Zacarias MD Right: Knee [id number] 06/14/2029 [id number] / / [id number] Aug Fem Attune Post Sz5 4mm Implanted:Qty : 1 on 08/16/2019 by Ghulam Zacarias MD Right: Knee [id number] 06/14/2029 [id number] / / [id number] Ins Tib Attune Sz5 12mm Implanted:Qty : 1 on 08/16/2019 by Ghulam Zacarias MD Right: Knee 03/17/2024 [id number] / / [id number] [place] [address] [address] DUAL COMPLETE HMO [facility] [id number] * Guarantor: ELAINE KINSEY Account Type Relation to Patient Date of Phone Billing Address Personal/Family [address] [place] [id number] [employer] Medicare Part D Care Teams Psychology Assistant Relationship Specialty Start Date End Date Anthony Jacobs MD [address] [phone] PCP - General 05/16/20
--- OUTSIDE RECORDS SUMMARY | 2025-02-12 11:50 | XMS_ITS | Encounter Summary ---
Author Organization [facility] Address [address] [place] [address] Care Team Providers Care Wanigan Clerk Name Role Phone Anthony Jacobs MD Primary Care Provider Encounter Details Date Type Department Care Team (Latest Contact Info) Description 09/27/2003 Outpatient Historical [facility] Orthopedics- [address] [place] [address] Ghulam Malcolm MD [address] [place] [phone] JOINT PAIN-HAND (Primary Dx); CARPAL TUNNEL SYNDROME; Trigger finger Social History Tobacco Use Types Packs/Day Years Used Date Smoking Tobacco: Never Assessed Comments Unknown Sex and Gender Information Value Date Recorded Sex Assigned at Not on file Legal Sex Female 3:30 AM MIRROR FRAMER Gender Identity Not on file Sexual Orientation Not on file documented as of this encounter Plan of Treatment Not on file documented as of this encounter Visit Diagnoses Diagnosis Pain in joint, hand- Primary Carpal tunnel syndrome Trigger finger Trigger finger (acquired) documented in this encounter Care Teams Wanigan Clerk Relationship Specialty Start Date End Date Anthony Jacobs MD [address] [phone] PCP - General Family Practice 04/24/15 documented as of this encounter
--- OUTSIDE RECORDS SUMMARY | 2025-02-12 11:51 | XMS_ITS | Encounter Summary ---
Author Organization [facility] Address [address] [place] [address] Care Team Providers Care Trolley Car Overhauler Name Role Phone Anthony Jacobs MD Primary Care Provider [phone] Encounter Details Date Type Department Care Team (Late st Contact Info) Description 03/24/2001 Outpatient Historical [facility] ORAL SURGERY Ethan San MD [address], [place] [address] UNSPEC DENTAL CARIES (Primary Dx) Social History Tobacco Use Types Packs/Day Years Used Date Smoking Tobacco: Never Assessed Comments Unknown Sex and Gender Information Value Date Recorded Sex Assigned at Not on file Legal Sex Female 3:30 AM FIELD MARKETER Gender Identity Not on file Sexual Orientation Not on file documented as of this encounter Plan of Treatment Not on file documented as of this encounter Visit Diagnoses Diagnosis Unspecified dental caries- Primary documented in this encounter Care Teams Trolley Car Overhauler Relationship Specialty Start Date End Date Anthony Jacobs MD [address] [phone] PCP - General Family Practice 04/24/15 documented as of this encounter
--- OUTSIDE RECORDS SUMMARY | 2025-02-12 11:51 | XMS_ITS | Encounter Summary ---
Author Organization [facility] Address [address] [place] [address] Care Team Providers Care Kitchen Food Server Name Role Phone Anthony Jacobs MD Primary Care Provider [phone] Encounter Details Date Type Department Care Team (Late st Contact Info) Description 07/09/1999 Outpatient Historical [facility] [address] [place] [phone] Social History Tobacco Use Types Packs/Day Years Used Date Smoking Tobacco: Never Assessed Comments Unknown Sex and Gender Information Value Date Recorded Sex Assigned at Not on file Legal Sex Female 3:30 AM INSPECTOR MATERIALS AND PROCESSES Gender Identity Not on file Sexual Orientation Not on file documented as of this encounter Plan of Treatment Not on file documented as of this encounter Visit Diagnoses Not on filedocumented in this encounter Care Teams Kitchen Food Server Relationship Specialty Start Date End Date Anthony Jacobs MD [address] [phone] PCP - General Family Practice 04/24/15 documented as of this encounter
--- OUTSIDE RECORDS SUMMARY | 2025-02-12 11:51 | XMS_ITS | Encounter Summary ---
Author Organization [facility] Address [address] [place] [address] Care Team Providers Care Slot Floor Person Name Role Phone Anthony Jacobs MD Primary Care Provider [phone] Encounter Details Date Type Department Care Team (Late st Contact Info) Description 03/02/2001 Outpatient Historical [facility] ORAL SURGERY Ethan San MD [address], [place] [id number] UNSPEC DENTAL CARIES (Primary Dx) Social History Tobacco Use Types Packs/Day Years Used Date Smoking Tobacco: Never Assessed Comments Unknown Sex and Gender Information Value Date Recorded Sex Assigned at Not on file Legal Sex Female 3:30 AM ADOPTION SERVICES MANAGER Gender Identity Not on file Sexual Orientation Not on file documented as of this encounter Plan of Treatment Not on file documented as of this encounter Visit Diagnoses Diagnosis Unspecified dental caries- Primary documented in this encounter Care Teams Slot Floor Person Relationship Specialty Start Date End Date Anthony Jacobs MD [address] [phone] PCP - General Family Practice 04/24/15 documented as of this encounter
--- OUTSIDE RECORDS SUMMARY | 2025-02-12 11:51 | XMS_ITS | Clinical Summary ---
Author Organization [facility] Address [address] [place] [address] Care Team Providers Care Accounting Consultant Name Role Phone Anthony Jacobs MD Primary Care Provider [phone] Allergies Active Allergy Reactions Criticality Noted Date Comments Methylprednisolone Other (See Comments) 03/11/2011 made me feel strange Metoclopramide Other (See Comments) 03/11/2011 caused my legs to jerk Morphine Other (See Comments) 07/27/2019 Makes Me Hyper Nsaids (Non-Steroidal Anti-Inflammatory Drug) Other (See Comments) 07/27/2019 Post Gastric Bypass Sulfa (Sulfonamide Antibiotics) Hives High 03/11/2011 Tetracycline Anaphylaxis High 03/11/2011 Medications baclofen (LIORESAL) 20 mg tablet Take 20 mg by mouth late in the day. 12/26/2018 Active losartan (COZAAR) 50 mg tablet TK 1 AND 1/ TS PO D 03/06/2019 Active diltiaZEM (CARDIZEM) 30 mg tablet Take 30 mg by mouth 1 time daily as needed. Active magnesium oxide 250 mg magnesium Tablet Take 250 mg by mouth late in the day. Active HYDROcodone-acet aminophen (NORCO) 5-325 mg tablet Take 1 Tablet by mouth every 4 hours as needed for Pain, Moderate. 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 07/27/2019 Status post right knee replacement 07/27/2019 Severe obesity (BMI 35.0-39.9) with comorbidity 07/27/2019 History of tobacco use 07/27/2019 ONEYDA (obstructive sleep apnea) 07/27/2019 History of gastric bypass 07/27/2019 Leukocytopenia 07/27/2019 Knee pain, right 04/08/2011 Essential hypertension 03/11/2011 Resolved Problems Problem Noted Date Diagnosed Date Resolved Date Preoperative general physical examination 07/27/2019 08/15/2019 Instability of right knee joint 07/27/2019 08/29/2019 Family History Medical History Relation Name Comments [...] Used Date Smoking Tobacco: Former Cigarettes 1 - 1999 Smokeless Tobacco: Never Comments:smoked 1 to 1.5 devin s per day Alcohol Use Standard Drinks/Week Comments No 0 (1 standard drink = 0.6 oz pur e alcohol) Comments No Sex and Gender Information Value Date Recorded Sex Assigned at Not on file Legal Sex Female 3:30 AM SPECIALTY DEVELOPMENT CONSULTANT Gender Identity Not on file Sexual Orientation Not on file Last Filed Vital Signs Vital Sign Reading Time Taken Comments Blood Pressure 175/106 10/30/2019 2:12 PM CDT Pulse 72 10/30/2019 2:12 PM CDT Temperature 36.3 C (97.3 F) 08/18/2019 7:30 AM CDT Respiratory Rate 16 08/18/2019 7:30 AM CDT Oxygen Saturation 97% 08/18/2019 7:30 AM CDT Inhaled Oxygen Concentration - - Weight 106.1 kg (234 lb) 10/30/2019 2:12 PM CDT Height 165.1 cm (5' 5 ) 10/30/2019 2:12 PM CDT Body Mass Index 38.94 10/30/2019 2:12 PM CDT Plan of Treatment Health Maintenance Due Date Last Done Comments Pre-Diabetes and Diabetes Screening 1957 DTAP/TDAP/TD VACCINES (1 - Tdap) 01/11/1976 BREAST CANCER SCREENING 1997 COLORECTAL SCREENING 2002 Colorectal Cancer Screening 2002 FIT-DNA Q 3 years 2002 FIT/FOBT Q 1 year 2002 Flex Sig/CT Colonography Q 5 years 2002 PNEUMOCOCCAL VACCINE 50+ YEARS (1 of 1 - PCV) 01/11/20 07 RSV VACCINE (60+ or ) (1 - Risk 50-74 years 1-dose series) 2007 ZOSTER VACCINE (1 of 2) 2007 OSTEOPOROSIS SCREENING 2022 INFLUENZA VACCINE (#1) 2024 Medical Devices Implanted Type Area Promotion Writer Device Identifier Shelf Expiration Date Model / Serial / Lot Cement Simplex Hvisc 6194 - [id number] Implanted:02/2019 by Ghulam Zacarias MD at [facility] (Quantity not on file) Cement Right: Knee [employer] [id number] 11/14/2020 6194 / / [id number] Cement Simplex Hvisc 6194 - [id number] Implanted:02/2019 by Ghulam Zacarias MD at [facility] (Quantity not on file) Cement Right: Knee [employer] [id number] 11/14/2020 6194 / / [id number] Stem Fem Attune [id number] 1513-16-110 - [id number] Implanted:Qty: 1 on 08/16/2019 by Ghulam Zacarias MD at [facility] Knee Right: Knee [employer] [id number] 06/14/2029 [id number] / / [id number] Stem Fem Attune [id number] 1513-18-060 - [id number] Implanted:Qty: 1 on 08/16/2019 by Ghulam Zacarias MD at [facility] Knee Right: Knee [employer] [id number] 06/14/2029 [id number] / / [id number] Augment Fem Attune Dist Sz5 4mm Rev 1547-05-001 - [id number] Implanted:Qty: 1 on 08/16/2019 by Ghulam Zacarias MD at [facility] Knee Right: Knee [employer] [id number] 05/15/2029 [id number] / / [id number] Baseplate Tib Attune Rev Sz6 1506-60-006 - [id number] Implanted:Qty: 1 on 08/16/2019 by Ghulam Zacarias MD at [facility] Knee Right: Knee [employer] [id number] 02/14/2029 1506-60-006 / / [id number] Comp Fem Attune Rev Sz5 Rt 150440-205 - [id number] Implanted:Qty: 1 on 08/16/2019 by Ghulam Zacarias MD at [facility] Knee Right: Knee [employer] [id number] 06/14/2029 1504-40-205 / / [id number] Sleeve Fem Attune Full Por 45mm - [id number] Implanted:Qty: 1 on 08/16/2019 by Ghulam Zacarias MD at [facility] Knee Right: Knee [employer] [id number] 07/15/2029 / / [id number] Sleeve Fem Attune Rev 40mm - [id number] Implanted:Qty: 1 on 08/16/2019 by Ghulam Zacarias MD at [facility] Knee Right: Knee [employer] [id number] 09/14/2028 151 / / [id number] Aug Fem Attune Post Sz5 4mm Implanted:Qty: 1 on 08/16/2019 by Ghulam Zacarias MD at [facility] Right: Knee [id number] 06/14/2029 [id number] / / [id number] Aug Fem Attune Post Sz5 4mm Implanted:Qty: 1 on 08/16/2019 by Ghulam Zacarias MD at [facility] Right: Knee [id number] 06/14/2029 [id number] / / [id number] Ins Tib Attune Sz5 12mm Implanted:Qty: 1 on 08/16/2019 by Ghulam Zacarias MD at [facility] Right: Knee 03/17/2024 [id number] / / [id number] Insurance [place]ID [place] [employer] Medicare Part D Advance Directives For more information, please contact: [phone] * Full Code (Latest Code Status on File) Date Activated Date Inactivated Comments 08/16/2019 5:29 PM 08/18/2019 5:28 PM * Full Code Date Activated Date Inactivated Comments 08/16/2019 10:03 AM 08/16/2019 5:29 PM Care Teams Accounting Consultant Relationship Specialty Start Date End Date Anthony Jacobs MD [address] [phone] PCP - General Family Practice 04/24/15
--- OUTSIDE RECORDS SUMMARY | 2025-02-12 11:51 | XMS_ITS | Encounter Summary ---
Author Organization [facility] Address [address] [place] [address] Care Team Providers Care Field Technical Assistant Name Role Phone Anthony Jacobs MD Primary Care Provider [phone] Encounter Details Date Type Department Care Team (Latest Contact Info) Description 07/26/2003 Outpatient Historical [facility] Orthopedics- [address] [place] [address] Ghulam Malcolm MD [address] [place] [phone] CARPAL TUNNEL SYNDROME (Primary Dx); Trigger finger Social History Tobacco Use Types Packs/Day Years Used Date Smoking Tobacco: Never Assessed Comments Unknown Sex and Gender Information Value Date Recorded Sex Assigned at Not on file Legal Sex Female 3:30 AM MANUFACTURING TECH Gender Identity Not on file Sexual Orientation Not on file documented as of this encounter Plan of Treatment Not on file documented as of this encounter Visit Diagnoses Diagnosis Carpal tunnel syndrome- Primary Trigger finger Trigger finger (acquired) documented in this encounter Care Teams Field Technical Assistant Relationship Specialty Start Date End Date Anthony Jacobs MD [address] [phone] PCP - General Family Practice 04/24/15 documented as of this encounter
--- OUTSIDE RECORDS SUMMARY | 2025-02-12 11:51 | XMS_ITS | Encounter Summary ---
Author Organization [facility] Address [address] [place] [address] Care Team Providers Care Transfer Station Attendant Name Role Phone Anthony Jacobs MD Primary Care Provider [phone] Encounter Details Date Type Department Care Team (Late st Contact Info) Description 03/30/2001 Outpatient Historical [facility] ORAL SURGERY Ethan San MD [address] [place] [address] SURGERY FOLLOWUP, UNSPEC (Primary Dx) Social History Tobacco Use Types Packs/Day Years Used Date Smoking Tobacco: Never Assessed Comments Unknown Sex and Gender Information Value Date Recorded Sex Assigned at Not on file Legal Sex Female 3:30 AM CAMP NURSE Gender Identity Not on file Sexual Orientation Not on file documented as of this encounter Plan of Treatment Not on file documented as of this encounter Visit Diagnoses Diagnosis Follow-up examination, following unspecified surgery- Primary documented in this encounter Care Teams Transfer Station Attendant Relationship Specialty Start Date End Date Anthony Jacobs MD [address] [phone] PCP - General Family Practice 04/24/15 documented as of this encounter
--- OUTSIDE RECORDS SUMMARY | 2025-02-12 11:51 | XMS_ITS | Encounter Summary ---
Author Organization [facility] Address [address] [place] [address] Care Team Providers Care Wind Turbine Blade Repair Technician Name Role Phone Anthony Jacobs MD Primary Care Provider [phone] Encounter Details Date Type Department Care Team (Late st Contact Info) Description 01/01/2020 Ancillary Orders [facility] Orthopedics - [facility] [address] [place] [address] [facility], External Provider [address] [place] [address] Pain Social History Tobacco Use Types Packs/Day Years Used Date Smoking Tobacco: Former Cigarettes 1 20 1 980 - 2000 Smokeless Tobacco: Never Comments:smoked 1 to 1.5 devin s per day Alcohol Use Standard Drinks/Week Comments No 0 (1 standard drink = 0.6 oz pur e alcohol) Comments No Sex and Gender Information Value Date Recorded Sex Assigned at Not on file Legal Sex Female 3:30 AM DIABETES EDUCATOR Gender Identity Not on file Sexual Orientation Not on file documented as of this encounter Plan of Treatment Not on file documented as of this encounter Results * XR PRIOR STUDY (12/05/2019 12:00 PM CDT) Narrative 01/01/2020 12:49 PM DIABETES EDUCATOR This exam was auto finalized to allow images to be scanned to PACS. us External Provider [facility] DIAGNOSTIC IMAGING ORDERAB LES Final Result documented in this encounter Visit Diagnoses Diagnosis Pain Generalized pain Pain Generalized pain documented in this encounter Care Teams Wind Turbine Blade Repair Technician Relationship Specialty Start Date End Date Anthony Jacobs MD [address] [phone] PCP - General Family Practice 04/24/15 documented as of this encounter
--- OUTSIDE RECORDS SUMMARY | 2025-02-12 11:51 | XMS_ITS | Encounter Summary ---
Author Organization [facility] Address [address] [place] [address] Care Team Providers Care Public Housing Manager Name Role Phone Anthony Jacobs MD Primary Care Provider [phone] Encounter Details Date Type Department Care Team (Latest Contact Info) Description 03/19/2003 Outpatient [facility] Dermatology- 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
--- OUTSIDE RECORDS SUMMARY | 2025-02-12 11:51 | XMS_ITS | Encounter Summary ---
Author Organization [facility] Address [address] [place] [address] Care Team Providers Care Mainspring Strip Inspector Name Role Phone Anthony Jacobs MD Primary Care Provider [phone] Encounter Details Date Type Department Care Team (Late st Contact Info) Description 01/23/1999 Outpatient Historical [facility] Occupational Medicine-[facility] [address] [place] [address] Social History Tobacco Use Types Packs/Day Years Used Date Smoking Tobacco: Never Assessed Comments Unknown Sex and Gender Information Value Date Recorded Sex Assigned at Not on file 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
--- OUTSIDE RECORDS SUMMARY | 2025-02-12 11:51 | XMS_ITS | Encounter Summary ---
Author Organization [facility] Address [address] [place] [address] Care Team Providers Care Reach Truck Operator Name Role Phone Anthony Jacobs MD Primary Care Provider [phone] Encounter Details Date Type Department Care Team (Late st Contact Info) Description 02/06/2025 External Device Data [facility] ABSTRACTION Provider, Abstract NO ADDRESS ON FILE Social History Tobacco Use Types Packs/Day Years Used Date Smoking Tobacco: Former Cigarettes 1 25 1 975 - 02/15/1999 Smokeless Tobacco: Never Comments:Quit smoking: smoke d 1 to 1.5 paks per day Alcohol Use Standard Drinks/Week Comments No 0 (1 standard drink = 0.6 oz pur e alcohol) Comments No Sex and Gender Information Value Date Recorded Sex Assigned at Not on file Legal Sex Female 11:22 AM TRIBAL DELEGATE Gender Identity Not on file Sexual Orientation Not on file documented as of this encounter Plan of Treatment Not on file documented as of this encounter Visit Diagnoses Not on filedocumented in this encounter Care Teams Reach Truck Operator Relationship Specialty Start Date End Date Anthony Jacobs MD [address] [phone] PCP - General 05/16/20 documented as of this encounter
--- OUTSIDE RECORDS SUMMARY | 2025-02-12 11:51 | XMS_ITS | Encounter Summary ---
Author Organization [facility] Address [address] [place] [address] Care Team Providers Care Optical Laboratory Manager Name Role Phone Anthony Jacobs MD Primary Care Provider [phone] Encounter Details Date Type Department Care Team (Late st Contact Info) Description 04/07/2001 Outpatient Historical [facility] Ethan San MD [address] [place] [address] SURGERY FOLLOWUP, UNSPEC (Primary Dx) Social History Tobacco Use Types Packs/Day Years Used Date Smoking Tobacco: Never Assessed Comments Unknown Sex and Gender Information Value Date Recorded Sex Assigned at Not on file Legal Sex Female 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
--- OUTSIDE RECORDS SUMMARY | 2025-02-12 11:51 | XMS_ITS | Encounter Summary ---
Author Organization [facility] Address [address] [place] [address] Care Team Providers Care Bisque Brusher Name Role Phone Anthony Jacobs MD Primary Care Provider [phone] Encounter Details Date Type Department Care Team (Latest Contact Info) Description 01/13/1999 Outpatient Historical [facility] Medicine-[place] [address] [place] [address] Lauri Osullivan [address] [facility] [address] [place] [address] Impacted cerumen (Primary Dx) Social History Tobacco Use Types Packs/Day Years Used Date Smoking Tobacco: Never Assessed Comments Unknown Sex and Gender Information Value Date Recorded Sex Assigned at Not on file Legal Sex Female 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
--- OUTSIDE RECORDS SUMMARY | 2025-02-12 11:51 | XMS_ITS | Encounter Summary ---
Author Organization [facility] Address [address] [place] [address] Care Team Providers Care Telephone Answering Service Operator Name Role Phone Anthony Jacobs MD Primary Care Provider [phone] Encounter Details Date Type Department Care Team (Latest Contact Info) Description 08/16/2000 Outpatient Historical [facility] Oral and Maxillo Surgery[address] [place] [address] Ghulam Adair, PhD NO ADDRESS ON FILE Dental caries (Primary Dx) Social History Tobacco Use Types Packs/Day Years Used Date Smoking Tobacco: Never Assessed Comments Unknown Sex and Gender Information Value Date Recorded Sex Assigned at Not on file Legal Sex Female 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
--- OUTSIDE RECORDS SUMMARY | 2025-02-12 11:51 | XMS_ITS | Encounter Summary ---
Author Organization [facility] Address [address] [place] [address] Care Team Providers Care Retread Technician Name Role Phone Anthony Jacobs MD Primary Care Provider [phone] Encounter Details Date Type Department Care Team [...] on file Legal Sex Female 11:22 AM RELIGIOUS ACTIVITIES DIRECTOR Gender Identity Not on file Sexual Orientation Not on file documented as of this encounter Plan of Treatment Not on file documented as of this encounter Visit Diagnoses Not on filedocumented in this encounter Care Teams Retread Technician Relationship Specialty Start Date End Date Anthony Jacobs MD [address] [phone] PCP - General 05/16/20 documented as of this encounter
--- OUTSIDE RECORDS SUMMARY | 2025-02-12 11:51 | XMS_ITS | Encounter Summary ---
Author Organization [facility] Address [address] [place] [address] Care Team Providers Care Waterproofing Mixer Name Role Phone Anthony Jacobs MD Primary Care Provider [phone] Encounter Details Date Type Department Care Team (Latest Contact Info) Description 07/19/1998 Outpatient Historical [facility] [place] [address] [place] [address] Idalia Mckeon MD NO ADDRESS ON FILE Lateral epicondylitis (Primary Dx); Carpal tunnel syndrome Social History Tobacco Use Types Packs/Day Years Used Date Smoking Tobacco: Never Assessed Comments Unknown Sex and Gender Information Value Date Recorded Sex Assigned at Not on file Legal Sex Female 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
--- OUTSIDE RECORDS SUMMARY | 2025-02-12 11:51 | XMS_ITS | Encounter Summary ---
Author Organization [facility] Address [address] [place] [address] Care Team Providers Care Document Processing Specialist Name Role Phone Anthony Jacobs MD Primary Care Provider [phone] Encounter Details Date Type Department Care Team (Latest Contact Info) Description 04/12/1998 Outpatient Historical [facility] [address] [place] [address] Idalia Mckeon MD NO ADDRESS ON FILE Gynecologic examination (Primary Dx); Dysthymic disorder Social History Tobacco Use Types Packs/Day Years Used Date Smoking Tobacco: Never Assessed Comments Unknown Sex and Gender Information Value Date Recorded Sex Assigned at Not on file Legal Sex Female 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
--- OUTSIDE RECORDS SUMMARY | 2025-02-12 11:51 | XMS_ITS | Patient Health Record ---
Author Organization [facility] Address [address] [place] [address] Care Team Providers Care Paperhanger And Painter Name Role Phone Ernie Edmond Primary Care Provider Unavailabl e Reason For Referral No Information Plan Of Treatment No Information
--- OUTSIDE RECORDS SUMMARY | 2025-02-12 11:51 | XMS_ITS | Encounter Summary ---
Author Organization [facility] Address [address] [place] [address] Care Team Providers Care Aqua Ammonia Operator Name Role Phone Anthony Jacobs MD Primary Care Provider [phone] Encounter Details Date Type Department Care Team (Latest Contact Info) Description 03/29/1998 Outpatient Historical [facility] [address] [place] [address] Idalia Mckeon MD NO ADDRESS ON FILE Dysthymic disorder (Primary Dx); Other specified menopausal and postmenopausal disorder Social History Tobacco Use Types Packs/Day Years Used Date Smoking Tobacco: Never Assessed Comments Unknown Sex and Gender Information Value Date Recorded Sex Assigned at Not on file Legal Sex Female 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
[2025-02-12 11:53] VITALS: BP 175/96; PULSE 76; TEMP 36.7; O2SAT 94; BMI 52.0
--- NOTE | 2025-02-12 11:57 | ECG_ITS ---
[facility]25-02[facility]12 Pat Name: Xiao Kinsey Department: Room: Gender: Female Automation Machine Operator: : 1955 Requested By: Lebron Krishnamurthy Order Number: [id number] [place] MD: Pravin Rosenberg M.D. Measurements Intervals [place] Rate: 67 P: -16 HI: 161 QRS: -16 QRSD: 97 T: -17 QT: 375 QTc: 396 Interpretive Statements SINUS RHYTHM MODERATE VOLTAGE CRITERIA FOR LVH, CONSIDER NORMAL VARIANT [MEETS CRITERIA IN ONE OF: R(aVL), S(V1), R(V5), R(V5/V6)+S(V1)] Compared to ECG 08/04/2022 10:51:06 LEFT VENTRICULAR HYPERTROPHY IS NEW Electronically Signed On 02-15-2025 16:28:31 TUNGSTEN REFINER by Pravin Rosenberg M.D. [email or web address]
[2025-02-12 12:16] LABS: Hematocrit 43.5 % (36-47); Hemoglobin 13.20 g/dL (11.27-16.99); Mean Corpuscular HGB Conc 30.3 g/dL (30-55); Mean Corpuscular Hemoglobin 26.2 pg (27-33); Mean Corpuscular Volume 86.3 fl (85-98); Nucleated Red Blood Cells % 0 %; Platelet Count 210 10^3/cmm (157-399); Red Blood Count 5.04 10^6/uL (3.85-5.65); White Blood Count 8.58 10^3/uL (3.29-11.43)
[2025-02-12 12:32] LABS: INR 0.91 (0.8-1.2); Prothrombin Time 12.90 SECONDS (12.1-14.9)
[2025-02-12 12:38] LABS: Troponin(5th) Baseline 14 ng/L (0-10)
[2025-02-12 12:41] LABS: Alanine Aminotransferase 13 U/L (0-33); Albumin Level 4.1 g/dL (3.5-5.2); Alkaline Phosphatase 81 U/L (35-105); Anion Gap 15.9 (5-19); Aspartate Amino Transferase 12 U/L (0-32); Blood Urea Nitrogen 12 mg/dL (8-23); Calcium 9.3 mg/dL (8.5-10.5); Carbon Dioxide 24 mmol/L (22-29); Chloride 107 mmol/L (98-107); Globulin 1.9 g/dL (1.3-4.6); Glucose 103 mg/dL (65-115); Lipase 43 U/L (13-60); Osmolality Calculated 296 mOsm/kg (285-295); Potassium 3.9 mmol/L (3.5-5.1); Sodium 143 mmol/L (136-145); Total Protein 6.0 g/dL (6.6-8.7)
--- NOTE | 2025-02-12 12:41 | ECG_ITS ---
[facility]: 2025-02-12 Pat Name: Xiao Kinsey Department: Room: Gender: Female Patternmaker Pressure Cast: : 1955 Requested By: Lebron Krishnamurthy Order Number: [id number] [place] MD: CRISTOPHER BISHOP Measurements Intervals [place] Rate: 58 P: 1 NM: 164 QRS: -12 QRSD: 93 T: -12 QT: 412 QTc: 406 Interpretive Statements SINUS BRADYCARDIA LEFT VENTRICULAR HYPERTROPHY AND ST-T CHANGE [VOLTAGE CRITERIA PLUS ST/T ABNORMALITY] Compared to ECG 02/12/2025 11:57:36 ST (T wave) deviation now present Sinus rhythm no longer present Electronically Signed On 02-15-2025 18:52:03 TELEVISION AUDIO ENGINEER by CRISTOPHER BISHOP [id number]
--- NOTE | 2025-02-12 13:56 | W.ED.CHESTPA ---
HPI - Chest Pain General: Chief Complaint: Chest Pain Stated Complaint: chest pressure Time Seen by Provider: 02/12/25 13:45 Source: patient Mode of arrival: ambulatory Limitations: no limitations History of Present Illness: 70-year-old female states that she started having chest pain this morning at 10 AM states it was a dull aching pain that lasted roughly 30 minutes. States since she has been pain-free. She denies any vomiting denies any shortness of breath denies any diaphoresis denies any worse or improving factors. Related Data Home Medications ?Medication ?Instructions ?Recorded ?Confirmed Lactobacillus 40-Bifidobact 1 cap PO DAILY 05/30/19 02/06/25 3-S.thermophilus 100 billion cell capsule (Probiotic) vitamin C 500 mg-multivitamin with 1 tab PO DAILY 05/30/19 02/06/25 minerals chewable tablet (Emergen-C) omeprazole 20 mg tablet,delayed 20 mg PO DAILY 01/16/20 02/06/25 release Beet Root 2 cap PO DAILY 05/14/22 02/06/25 magnesium 250 mg tablet 500 mg PO DAILY 08/04/22 02/06/25 albuterol sulfate 90 mcg/actuation 2 puff inhalation PRN 03/14/23 02/06/25 aerosol inhaler prednisone 5 mg tablet 16 mg PO DAILY 02/06/25 02/06/25 Previous Rx's ?Medication ?Instructions ?Recorded SOLE SUPPORTS #1 ea 01/05/23 gabapentin 300 mg capsule 300 mg PO BID #20 caps 03/14/23 Cam boot to left #1 ea 01/06/24 Wheel chair with elevated foot rest #1 ea 08/11/24 losartan 50 mg tablet See Rx Instructions .Route 12/04/24 .COMPLEX #90 tabs metoprolol tartrate 25 mg tablet 25 mg PO BID@0900,2100 #60 tabs 12/04/24 rivaroxaban 20 mg tablet (Xarelto) 20 mg PO QPM #90 tabs 12/04/24 acetaminophen 500 mg tablet (Pain See Rx Instructions .Route 12/06/24 Reliever (acetaminophen)) .COMPLEX #60 tabs cholecalciferol (vitamin D3) 250 250 mcg PO DAILY #1 cap 02/06/25 mcg (10,000 unit) capsule Allergies Allergy/AdvReac Type Severity Reaction Status Date / Time Sulfa (Sulfonamide Allergy Intermediate hives Verified 02/12/25 12:02 Antibiotics) morphine Allergy Unknown Verified 02/12/25 12:02 NSAIDS (Non-Steroidal Allergy Unknown Verified 02/12/25 12:02 Anti-Inflamma tetracycline Allergy ALGY-Anaphy Verified 02/12/25 12:02 laxis methylprednisolone (From AdvReac Unknown Verified 02/12/25 12:02 Medrol) Review of Systems Card: Reports: chest pain PFS ED PFSH: Medical History (Updated 02/12/25 @ 14:33 by Lebron Krishnamurthy MD) Hypertension Paroxysmal atrial fibrillation Atrial fibrillation with RVR Symptomatic PVCs Tachycardia Obesity Intermittent palpitations Surgical History Total knee replacement status Hx of hysterectomy Hx of gastric bypass Gastric sleeve 2014 Family History Other CAD (coronary artery disease) Cancer Diabetes Stroke Social History Smoking and tobacco/nicotine status: former use of tobacco/nicotine Alcohol intake: current Alcohol intake frequency: other Substance/Drug Use: never Physical Exam Const: COMMON NORMALS: no acute distress, patient oriented x3 and healthy appearing HENMT: COMMON NORMALS: normocephalic and atraumatic HEAD & SCALP: normocephalic and atraumatic Neck/C-Spine: COMMON NORMALS: full ROM and supple Chest: COMMONS NORMALS: normal inspection of the chest and normal palpation of entire chest wall Resp: COMMON NORMALS: normal respiratory effort, No retractions, No use of accessory muscles and clear to auscultation bilaterally AUSCULTATION: clear to auscultation bilaterally Cardio: COMMON NORMALS: regular rate, regular rhythm and No murmurs present (Cardio) RATE: regular rate RHYTHM: regular rhythm GI: COMMON NORMALS: Normal to inspection, nondistended, normoactive bowel sounds present, Soft to palpation, non-tender and no masses PALPATION: Yes Soft to palpation Extremity: COMMON NORMALS: normal to inspection and full ROM Neuro: COMMON NORMALS: patient oriented x3, moves all extremities and no focal motor deficits Psych: COMMON NORMALS: mental status grossly normal, Normal thought process present and cooperative THOUGHT PROCESS: Normal thought process present Skin: COMMON NORMALS: no rashes or lesions noted and no wounds GENERAL SKIN EXAM: no rashes or lesions noted Course Vital Signs: Vital signs: Vital Signs Temperature 98.0 F 02/12/25 11:53 Pulse Rate 61 02/12/25 14:40 Respiratory Rate 18 02/12/25 14:40 Blood Pressure 154/72 02/12/25 14:40 Pulse Oximetry 97 02/12/25 14:40 Oxygen Delivery Tx thod Room Air 02/12/25 14:40 MDM - Chest Pain Medical Decision Making Patient presents here with chest pain that lasted roughly 30 minutes this morning differential includes pulm emboli, pneumothorax, ACS. Patient has no signs of pulm emboli here she is not tachypneic or tachycardic or short of breath. X-ray was interpreted by me showed no acute abnormality no signs of pneumonia or pneumothorax. Her pain is since resolved her pain was very atypical in nature troponins here are negative do not believe this is cardiac in nature. She is stable for discharge she is follow-up with PCP return if worsening she understands agrees to plan. EKG interpreted by me at 1157 normal sinus rhythm heart rate [address] elevation QRS 97 QTc 390-second EKG interpreted by me at 1351 sinus bradycardia heart rate [address] elevation QRS 93 QTc 4 9 Medical Records I reviewed the patient's medical records. Lab Data I reviewed the patient's lab results. 02/12/25 11:53 02/12/25 11:53 Radiology Impressions Chest X-Ray 02/12/25 11:41 Impression: Atherosclerosis. Laboratory Results WBC 8.58 10^3/uL (3.29-11.43) 02/12/25 11:53 RBC 5.04 10^6/uL (3.85-5.65) 02/12/25 11:53 Hgb 13.20 g/dL (11.27-16.99) 02/12/25 11:53 Hct 43.5 % (36-47) 02/12/25 11:53 MCV 86.3 fl (85-98) 02/12/25 11:53 MCH 26.2 pg (27-33) L 02/12/25 11:53 MCHC 30.3 g/dL (30-55) 02/12/25 11:53 RDW 14.7 % (12.1-15.1) 02/12/25 11:53 Plt Count 210 10^3/cmm (157-399) 02/12/25 11:53 MPV 9.1 fL (7.4-10.4) 02/12/25 11:53 Neut % (Auto) 69.0 % 02/12/25 11:53 Lymph % (Auto) 21.7 % 02/12/25 11:53 Mccracken % (Auto) 6.9 % 02/12/25 11:53 Eos % (Auto) 1.2 % 02/12/25 11:53 Baso % (Auto) 0.6 % 02/12/25 11:53 Neut # (Auto) 5.93 10^3/uL (1.8-7.7) 02/12/25 11:53 Lymph # (Auto) 1.9 10^3/uL (0.8-4.8) 02/12/25 11:53 Mccracken # (Auto) 0.6 10^3/uL (0.2-0.9) 02/12/25 11:53 Eos # (Auto) 0.1 10^3/uL (0.0-0.8) 02/12/25 11:53 Baso # (Auto) 0.1 10^3/uL (0.0-0.1) 02/12/25 11:53 Nucleated RBC % (auto) 0 % 02/12/25 11:53 Nucleated RBCs # 0.0 /100WBC 02/12/25 11:53 PT 12.90 SECONDS (12.1-14.9) 02/12/25 11:53 INR 0.91 (0.8-1.2) 02/12/25 11:53 Sodium 143 mmol/L (136-145) 02/12/25 11:53 Potassium 3.9 mmol/L (3.5-5.1) 02/12/25 11:53 Chloride 107 mmol/L (98-107) 02/12/25 11:53 Carbon Dioxide 24 mmol/L (22-29) 02/12/25 11:53 Anion Gap 15.9 (5-19) 02/12/25 11:53 BUN 12 mg/dL (8-23) 02/12/25 11:53 Creatinine 0.8 mg/dL (0.5-0.9) 02/12/25 11:53 GFR Calculation 71.3 mL/min (90-130) L 02/12/25 11:53 Glucose 103 mg/dL (65-115) 02/12/25 11:53 Calculated Osmolality 296 mOsm/kg (285-295) H 02/12/25 11:53 Calcium 9.3 mg/dL (8.5-10.5) 02/12/25 11:53 Total Bilirubin 0.7 mg/dL (0.15-1.2) 02/12/25 11:53 AST 12 U/L (0-32) 02/12/25 11:53 ALT 13 U/L (0-33) 02/12/25 11:53 Alkaline Phosphatase 81 U/L (35-105) 02/12/25 11:53 Troponin T Baseline 14 ng/L (0-10) H 02/12/25 11:53 Troponin T 60 Minute 14.07 ng/L (0-10) H 02/12/25 12:53 Delta Troponin T 0.07 ABS# (0-10) 02/12/25 12:53 Total Protein 6.0 g/dL (6.6-8.7) L 02/12/25 11:53 Albumin 4.1 g/dL (3.5-5.2) 02/12/25 11:53 Globulin 1.9 g/dL (1.3-4.6) 02/12/25 11:53 Lipase 43 U/L (13-60) 02/12/25 11:53 All radiology interpretation(s) finalized by discharge Discharge Plan Discharge Patient Disposition: Home Clinical Impression: Chest pain Condition: Stable Prescriptions: No Action omeprazole 20 mg tablet,delayed release (DR/EC) 20 mg PO DAILY (DME) SOLE SUPPORTS See Rx Instructions .Route .MEDSUPPLY Qty: 1 0RF Rx Instructions: As directed (DME) Cam boot to left See Rx Instructions .Route .MEDSUPPLY Qty: 1 0RF Rx Instructions: As directed prednisone 5 mg tablet 16 mg PO DAILY cholecalciferol (vitamin D3) 250 mcg (10,000 unit) capsule 250 mcg PO DAILY Qty: 1 0RF (DME) Wheel chair with elevated foot rest See Rx Instructions .Route .MEDSUPPLY Qty: 1 0RF Rx Instructions: As directed by HOME Length of need is 6 months losartan 50 mg tablet See Rx Instructions .ROUTE .COMPLEX Qty: 90 3RF Dose Instruction: TAKE 1 TABLET BY MOUTH EVERY DAY Rx Instructions: TAKE 1 TABLET BY MOUTH EVERY DAY metoprolol tartrate 25 mg tablet 25 mg PO BID@0900,2100 Qty: 60 4RF Xarelto 20 mg tablet 20 mg PO QPM Qty: 90 1RF acetaminophen [Pain Reliever (acetaminophen)] 500 mg tablet See Rx Instructions .ROUTE .COMPLEX Qty: 60 3RF Dose Instruction: TAKE 1 TABLET BY MOUTH EVERY DAY FOR fever FOR 30 DAYS Rx Instructions: TAKE 1 TABLET BY MOUTH EVERY DAY FOR fever FOR 30 DAYS Probiotic 100 billion cell Capsule 1 cap PO DAILY Emergen-C 500 mg Tablet,Chewable 1 tab PO DAILY magnesium 250 mg tablet 500 mg PO DAILY Beet Root 2 cap PO DAILY albuterol sulfate 90 mcg/actuation HFA aerosol inhaler 2 puff inhalation PRN Rx Instructions: INHALE 2 PUFFS BY MOUTH EVERY 4 TO 6 HOURS NEEDED FOR SHORTNESS OF BREATH gabapentin 300 mg capsule 300 mg PO BID Qty: 20 0RF Discharge Orders: Discharge ED (Routine); Ordered 02/12/25 Ordered By: Lebron Krishnamurthy Referrals: Anthony Jacobs MD [Primary Care Provider, Family Practice] - 4-7 days Discharge Diet: Advance as tolerated Discharge Activity: Resume usual activity Patient Instructions: Chest Pain (ED) Print Language: Romanian Coding Level of Care Code ED Head Baker for Chg Fwd Heart Score HEART Score Components History: Slightly Suspicous EKG: Normal Age: 65 or more yrs Risk Factors: 1 or 2 Risk Factors Troponin: Baseline Trop <16 ng/L HEART Score RESULT HEART Score: 3
[2025-02-12 14:40] VITALS: BP 154/72; PULSE 61; RESP 18; O2SAT 97
== END 2025-02-12 14:41 | disposition home or self-care (01) ==
PROVIDERS: Emergency Provider Emergency Medicine; PCP Family Medicine
DX: R07.9 Chest pain, unspecified (principal); Z87.891 Personal history of nicotine dependence; I10 Essential (primary) hypertension
CPT/HCPCS: 36415; 71045; 80053; 83690; 84484; 85025; 85610; 93005; 99285